=== PATIENT | female | born 1945 | race Caucasian/White ===

== ENCOUNTER → 2016-09-01 | Outpatient (CLI) | payer MEDICARE, OTHER ==
--- NOTE | 2016-09-01 12:31 | MR ---
MR brain without contrast HISTORY: Occipital neuralgia of right side, M 54.81 No comparisons Multiplanar multisequence imaging through the brain There is no restricted diffusion. Cortical atrophy is noted. There are normal vascular flow voids. Th e orbits show symmetric appearance. Scattered hyperintensities are present within the deep white albino er on inversion recovery and T2-weighted sequences, there are too numerous to count foci of hyperinte nsity with confluent areas of hyperintensity. No hemorrhage or hydrocephalus. There is some motion on the exam. Corpus callosum, pituitary, cervical medullary junction, cerebellopontine angles are sd l. IMPRESSION: Nonspecific white matter demyelination likely related to chronic small vessel ischemia. T here is age-related atrophy.
== END | disposition home or self-care (01) ==
LOC: RADMRIMAIN 09:06
PROVIDERS: ATTEND Psychiatry & Neurology Neurology
DX: G37.9 Demyelinating disease of central nervous system, unspecified (principal); G31.9 Degenerative disease of nervous system, unspecified
CPT/HCPCS: 70551

== ENCOUNTER → 2016-09-27 | Outpatient (CLI) | payer MEDICARE, OTHER ==
[2016-09-27 14:35] LABS: Anion Gap 11 mmol/L; Blood Urea Nitrogen 23 mg/dL (7-17); Calcium 9.4 mg/dL (8.4-10.2); Carbon Dioxide 25 mmol/L (22-30); Chloride 96 mmol/L (98-107); Glucose 118 mg/dL (74-99); Non-African American GFR(MDRD) 58 (>60 ml/min/1.73 sqM); Sodium 132 mmol/L (137-145)
== END | disposition home or self-care (01) ==
LOC: LABWHC1 13:31
PROVIDERS: ATTEND Urology
DX: N28.89 Other specified disorders of kidney and ureter (principal)
CPT/HCPCS: 36415; 80048

== ENCOUNTER → 2016-10-28 | Outpatient (CLI) | payer MEDICARE, OTHER ==
--- NOTE | 2016-10-28 15:01 | BD ---
EXAMINATION TYPE: MG DEXA axial skeleton. DATE OF EXAM: 10/28/2016 COMPARISON: NONE CLINICAL HISTORY: Postmenopausal female Height: 5 FT 2 IN Weight: 129 FRAX RISK QUESTIONS: Alcohol (3 or more units per day): NO Family History (Parent hip fracture): NO Glucocorticoids (More than 3mos): NO (Ex: prednisone, prednisolone, methylprednisolone, dexamethasone, and hydrocortisone). History of Fracture in Adulthood: NO Secondary Osteoporosis: 1. Type 1 Diabetes: NO 2. Hyperthyroidism: NO 3. Menopause before 45: YES 4. Malnutrition: NO 5. Chronic liver disease: NO Rheumatoid Arthritis: NO Current Tobacco Use: NO RISK FACTORS HISTORY OF: Family History of Osteoporosis: YES Active: YES Postmenopausal woman: TOTAL HSYT AGE 33 Take estrogen and/or progesterone medications: PATCH FOR SEVERAL YEARS MEDICATIONS: Additional Medications: HYZAAR, EFFEXOR ,IBS MEDS Additional History: LT KIDNEY CANCER 09/2016 NO CHEMO NO RADIATION EXAM MEASUREMENTS: Bone mineral densitometry was performed using the [employer] System. Bone mineral density as measured about the Lumbar spine is: ----- L1-L4(G/cm2): 0.975 T Score Values are as follows: ----- L2: -2.0 ----- L3: -1.4 ----- L4: -1.4 ----- L1-L4: -1.7 PREV LONG AGO Bone mineral density about the R hip (g/cm2): 0.655 Bone mineral density about the L hip (g/cm2): 0.690 T Score values are as follows: -----R Neck: -2.8 -----L Neck: -2.5 -----R Total: -2.0 -----L Total: -2.0 PREV LONG AGO IMPRESSION: Osteoporosis (T Score less than -2.5) as noted by T Score values at the femoral neck level in right h ip. There is increased fracture risk and therapy is usually indicated based on age. Re-Screen 1-2 ye ars. NOTE: T-SCORE=SD OF THE YOUNG ADULT MEAN.
== END | disposition home or self-care (01) ==
LOC: RADBDWWP 14:14
PROVIDERS: ATTEND Internal Medicine Rheumatology
DX: M81.0 Age-related osteoporosis without current pathological fracture (principal)
CPT/HCPCS: 77080

== ENCOUNTER → 2016-11-16 | Outpatient (CLI) | payer MEDICARE, OTHER ==
--- NOTE | 2016-11-16 16:56 | MR ---
EXAMINATION TYPE: MR cervical spine wo/w con DATE OF EXAM: 11/16/2016 COMPARISON: NONE HISTORY: Neck Pain with More Pain upon Movement for many years. Cancer of Kidney 2 months ago TECHNIQUE: Multiplanar, multisequence images of the cervical spine were acquired utilizing 12 mL intravenous Mul tiHance gadolinium contrast. Diffusion weighted imaging was performed. C2-C3: No evidence for degenerative disc disease. No disc bulge/herniation or protrusion. No Canal stenosis. Foramina are patent bilaterally. C3-C4: Mild central bulge is present. This is broad-based with mild anterior thecal sac compression. No AP spinal canal stenosis is present. No cord contact is evident. Neural foramen are patent. C4-C5: No evidence for degenerative disc disease. No disc bulge/herniation or protrusion. No Canal stenosis. Foramina are patent bilaterally. C5-C6: No evidence for degenerative disc disease. No disc bulge/herniation or protrusion. No Canal stenosis. Foramina are patent bilaterally. C6-C7: No evidence for degenerative disc disease. No disc bulge/herniation or protrusion. No Canal stenosis. Foramina are patent bilaterally. C7-T1: No evidence for degenerative disc disease. No disc bulge/herniation or protrusion. No Canal stenosis. Foramina are patent bilaterally. Cervical segments are intact. There is normal alignment. Cervical spinal cord is of normal signal. Craniovertebral junction relationships are within normal limits. Disc desiccation is present throug hout the cervical spine. No abnormal enhancement is evident. There is some mild disc space narrowing C3-4. No suspicious enhancement or mass is evident. IMPRESSION: Mild degenerative disc changes with disc desiccation. 2. Minimal disc bulge C3-4 with mild anterior thecal sac flattening. No stenosis is present.
== END | disposition home or self-care (01) ==
LOC: RADMRIMAIN 14:32
PROVIDERS: ATTEND Internal Medicine Rheumatology
DX: M50.21 Other cervical disc displacement, high cervical region (principal); M47.812 Spondylosis without myelopathy or radiculopathy, cervical region
CPT/HCPCS: 72156; A9577

== ENCOUNTER → 2017-09-19 | Outpatient (CLI) | payer MEDICARE, OTHER ==
[2017-09-19 17:23] LABS: Appearance,Urine Clear (Clear); Bilirubin,Urine Negative (Negative); Blood,Urine Negative (Negative); Color,Urine Yellow; Glucose,Urine (UA) Negative (Negative); Ketones,Urine Negative (Negative); Leukocyte Esterase,Urine Negative (Negative); Nitrite,Urine Negative (Negative); Protein,Urine Negative (Negative); Specific Gravity,Urine 1.015 (1.001-1.035); Urobilinogen,Urine <2.0 mg/dL (<2.0)
--- NOTE | 2017-09-19 17:33 | XR ---
EXAMINATION TYPE: XR chest 2V DATE OF EXAM: 09/19/2017 COMPARISON: NONE HISTORY: Preop spine surgery TECHNIQUE: Frontal and lateral views of the chest are obtained. FINDINGS: Heart and mediastinum are normal for age. Thoracic aorta is atheromatous. There is some bl unting of right costophrenic angle. Bony thorax appears intact. IMPRESSION: Pleural diaphragmatic scarring at the right lung base.
[2017-09-19 17:37] LABS: Basophils # (A) 0.1 k/uL (0-0.2); Basophils % (A) 1 %; Eosinophils # (A) 0.2 k/uL (0-0.7); Eosinophils % (A) 2 %; HCT 36.6 % (34.0-46.0); HGB 12.6 gm/dL (11.4-16.0); Lymphocytes # (A) 2.9 k/uL (1.0-4.8); Lymphocytes % (A) 29 %; MCH 31.3 pg (25.0-35.0); MCHC 34.5 g/dL (31.0-37.0); MCV 90.8 fL (80.0-100.0); Mean Platelet Volume 6.1; Monocytes # (A) 0.5 k/uL (0-1.0); Monocytes % (A) 5 %; Neutrophils # (A) 6.5 k/uL (1.3-7.7); Neutrophils % (A) 64 %; Platelet Count 296 k/uL (150-450); RBC 4.04 m/uL (3.80-5.40); RDW 14.4 % (11.5-15.5); WBC 10.2 k/uL (3.8-10.6)
[2017-09-19 17:43] LABS: INR 1.1 (<1.2); Prothrombin Time 10.7 sec (9.0-12.0)
[2017-09-19 17:48] LABS: Partial Thromboplastin Time 19.9 sec (22.0-30.0)
[2017-09-19 17:53] LABS: Calcium 9.7 mg/dL (8.4-10.2); Potassium 4.1 mmol/L (3.5-5.1)
== END | disposition home or self-care (01) ==
LOC: LABPAT 16:24
PROVIDERS: ATTEND Orthopaedic Surgery Orthopaedic Surgery of the Spine
DX: Z01.818 Encounter for other preprocedural examination (principal); J98.4 Other disorders of lung; M43.17 Spondylolisthesis, lumbosacral region; Z01.812 Encounter for preprocedural laboratory examination
CPT/HCPCS: 36415; 71046; 80048; 81003; 85025; 85610; 85730; 86850; 86900; 86901; 87070; 93005

== ENCOUNTER 2017-09-28 08:00 | Inpatient (IN) | payer MEDICARE, OTHER ==
[2017-09-23 16:08] VITALS: BMI 23.8
[~2017-09-28 08:00] MED LIST: BACITRACIN 50,000 UNIT, POLYMYXIN B 500,000 UNIT in SODIUM CHLORIDE 0.9% IRRIGATIO 1,00... IRRIGATION ONE; CLINDAMYCIN 150 MG/ML 4 ML VIAL ONE; LACTATED RINGERS 1,000 ML IV ONE; LIDOCAINE 1% INJ 10MG/ML (20 ML MDV) ONE; MIDAZOLAM 2 MG/2 ML VIAL ONE; ONDANSETRON 4 MG/2 ML VIAL ONE; PHENYLEPHRINE-0.9% NACL SYG 1 MG/10 ML SYRINGE ONE; PROPOFOL 10 MG/ML 20 ML VIAL IV ONE; SUCCINYLCHOLINE CHLORIDE 100 MG/5 ML SYR IV ONE; ePHEDrine SULFATE/0.9% NACL/PF 50 MG/5 ML SYRINGE IV ONE; fentaNYL (PF) 50 MCG/ML 2 ML AMP ONE; hydrALAZINE HCL 20 MG/ML 1 ML VIAL ONE
[2017-09-28] MEDS: CLINDAMYCIN 600 MG in DEXTROSE 5% IN WATER 50 ML IVPB SCH ×6 (08:35→17:03)
[2017-09-28] MEDS ORDERED: THROMBIN (BOVINE) 5,000 UNIT VIAL TOPICAL ONE (09:00)
[2017-09-28] MEDS ORDERED: BUPIVACAINE (PF) 0.5% 30 ML VIAL SQ ONE (09:00)
[2017-09-28] MEDS ORDERED: BACITRACIN 50,000 UNIT, POLYMYXIN B 500,000 UNIT in SODIUM CHLORIDE 0.9% IRRIGATIO 1,00... IRRIGATION ONE (09:00)
[2017-09-28] MEDS ORDERED: GELATIN SPONGE,ABSORB (SMALL) 1 EACH SPONGE TOPICAL ONE (09:00)
[2017-09-28] MEDS ORDERED: LACTATED RINGERS 1,000 ML IV ONE ×2 (10:35→11:01)
[2017-09-28] MEDS ORDERED: HYDROcodone/APAP 5-325MG 1 EACH TAB PO PRN (10:47)
[2017-09-28] MEDS ORDERED: ONDANSETRON 4 MG/2 ML VIAL IVP PRN (10:47)
[2017-09-28] MEDS ORDERED: MAGNESIUM HYDROXIDE 2,400 MG/10 ML CUP PO PRN (10:47)
[2017-09-28] MEDS ORDERED: BENZOCAINE/MENTHOL LOZENG 1 EACH LOZENGE MUCOUS MEM PRN (10:47)
[2017-09-28] MEDS ORDERED: traMADol 50 MG TAB PO PRN (10:52)
[2017-09-28] MEDS ORDERED: FLUTICASONE 50MCG/SPRAY NASAL 16GM EA NOSTRIL PRN (10:53)
[2017-09-28] MEDS ORDERED: [UNRECOGNIZED DRUG - MIXTURE] NASAL PRN (10:53)
--- NOTE | 2017-09-28 10:59 | P.OP ---
Date of Procedure: 09/28/17 Preoperative Diagnosis: Spondylolisthesis L4 5, spinal stenosis L4 5, low back pain, lower extremity radiculopathy, degenerative disc disease Postoperative Diagnosis: Same Anesthesia: GETA Pathology: none sent Condition: stable Disposition: PACU Description of Procedure: DESCRIPTION OF PROCEDURE(S): BRIEF OPERATIVE NOTE Preoperative Diagnosis: Spondylolisthesis L4 5, spinal stenosis L4 5, degenerative disc disease, low back pain with lower extremity radiculopathy Postoperative Diagnosis: Same Procedure: Laminectomy and decompression L4 5 Minimally invasive Posterior lateral decompression and facet fusion L4 5 Minimally invasive Transforaminal lumbar interbody fusion for a 360 fusion L4 5 Discectomy for decompression L4 5 Placement of interbody graft L4 5 Local autogenous bone grafting Harvesting of bone marrow aspirate via the pedicle and vertebral body of L4 Use of Cell Saver Use of bone graft extenders Surgeon: Dr. Ortiz Appeals Representative: Ron GENAO who is present throughout the entire the case persistence during positioning, dissection, exposure, visualization, and all crucial elements of the case as well as closure. Anesthesia: General anesthesia per Dr. Rodas Estimated blood loss: Approximately 200 mL Complications: None apparent Components implanted: K to have minimally invasive [place] pedicle screw system with 6.5 x 45 mm screws 2 rods and 1 [place] expandable 7-10 cage with 1 osteoamp sponge, 30 mL of DBX bone fibers to supplement the local autogenous and bone marrow aspirate graft Disposition: To recovery room in good stable condition. OPERATIVE INDICATIONS The patient has had long-standing issues in their lower back and lower extremities. She was found have a dynamic spondylolisthesis at L4 5 with spinal stenosis at that level. Her symptoms correlated well with her low back and lower extremity imaging. The patient has been through conservative treatment. She is not having any lasting benefit despite aggressive conservative treatment and she was having worsening of her symptoms. We discussed various treatment options including surgery, and the patient wishes to proceed with surgery We discussed the risk, patient's alternatives and benefits of surgery including but not limited to, risk of bleeding risk of infection, risk of need for further surgery, risk of decreased, loss of motion, muscle function, malunion nonunion, hardware failure, nerve damage, paralysis, heart attack, blindness and . OPERATIVE SUMMARY After discussing all the risks, patient alternatives and benefits at length, the patient elected to proceed with surgical intervention, signed informed consent, and presented for their procedure. The patient was seen and examined in the preoperative holding area and the surgical site was marked. The patient was given antibiotics and brought to the operating room. The patient was sedated and intubated by anesthesia in standard fashion. The patient was positioned on to the operating room table in a prone position on the appropriate frame which was well-padded and well molded. We were careful to pad any bony prominences and pressure points. We were careful to maintain the patient's cervical spine and good neutral alignment and position throughout. The patient was prepped and draped in a normal standard fashion. An appropriate timeout and keystone protocol performed. We were able to proceed with the surgery. The local wound area was infiltrated with local anesthetic. I was able utilize C-arm guidance to establish appropriate position over the pedicles bilaterally at the appropriate levels at L4 5. With the appropriate levels confirmed was able to make small stab incisions over the appropriate pedicle sites bilaterally. Utilizing C-arm in his house able to establish a Jamshidi needle over the lateral aspect of the pedicle and advanced the trocar into the pedicle being careful not to breech superiorly inferiorly medially or laterally. Position was confirmed regularly with AP and lateral images on C- arm. I was able to establish the trocar into the pedicle appropriately into the posterior aspect of the vertebral body bilaterally at the appropriate levels. This was done at each of the pedicle positions and each of the vertebrae. At L4 on the right and was able to withdraw approximately 20 mL of bone marrow aspirate to be used later for supplementing the bone graft. I was able place the guidewire into the trocar and into the vertebral body appropriately under C-arm guidance. Dissection was taken down over the wire to the appropriate starting position for the screw placed. The appropriate length screw was chosen, threaded over the guidewire and screwed appropriately into the pedicle and vertebral body under C-arm guidance in excellent alignment and position with good bony purchase. This is done at each of the screw sites at the appropriate levels at L4 and 5 bilaterally. With the screws intact I extended the incision to connect the screw hole sites on the most symptomatic side on the right of L4 5. I dissected down to establish access over the pars and lamina to the base of the spinous process. I was able to expose the facet joint. The capsule the facet was taken down and showed some facet arthrosis at the joint. I was able to use a combination of curettes and [place] rongeurs and a high-speed drill to take down the facet joint and do a facetectomy. Partial laminectomy was also performed. I was able get excellent foraminal decompression and central decompression with undermining across midline to perform a laminectomy centrally and contralaterally. As able get good central decompression. The ligamentum flavum was taken down to further decompress centrally and at bilateral neural foramen. I was able to expose the disc space and visualize the traversing nerve root. Note was made of some disc protrusion at the level causing further compression of the nerve root. I was able to establish a annulotomy at the appropriate level protecting soft tissue and neural structures. Note was made of some disc desiccation at the disc. I performed a complete discectomy with accommodation of curettes and rasps and scrapers. I was able get good endplate preparation at the disc space. I sized for the appropriate size interbody spacer protecting the soft tissue and neural structures. I chose to use an expandable [place] cage which expanded from 7-10 mm. The wound was copiously irrigated and suctioned dry. There is no evidence of any dural tear or leak. I was able to pack the disc space with local autogenous bone graft as well as a small amount of bone graft which was also placed into the interbody cage itself. Protecting the soft tissue structures and neural structures I was able place the interbody cage in good alignment and good position with good fit and fill at the interbody space. I was able to expanded appropriately and get good lordosis in good alignment and good position. His issues was confirmed with C- arm guidance. Good hemostasis maintained. There is no evidence of any dural tear or leak. The wound was irrigated and suctioned dry. With the hardware intact, intraoperative C-arm imaging was again taken which showed good alignment and position of the hardware at the appropriate levels at L4 5. We were then able to measure, contour and place the rods and appropriate hardware bilaterally. I was able to place capcrews, tighten them down, and torque them with the torque screwdriver appropriately. With this intact I was able to place the local autogenous bone graft with additional bone graft enhancer as necessary into the posterior lateral gutters over the decorticated transverse processes. The remainder of the bone graft was placed over the facet joint on the contralateral side after taking down the facet joint capsule. With the bone graft intact, a stable construct, and good decompression at the appropriate levels, we were able to proceed with closure. Good hemostasis was maintained. There is no evidence of dural tear or leak. The fascia was closed for a watertight closure. he subcuticular tissue was closed with absorbable suture. The wound was cleaned and dried and dressed with the appropriate dressing. The drapes were broken down. The patient was gently rolled back onto their hospital bed being careful to maintain their cervical spine and good neutral alignment and position. They were woken up by anesthesia, extubated, and brought to the recovery room in good stable condition. The patient will be admitted to the hospital for appropriate postoperative care , medical management and monitoring. We will continue to follow them closely about the postoperative course.
[2017-09-28] MEDS: HYDROmorphone 0.5 MG/0.5 ML SYRINGE IVP PRN ×3 (11:13→15:54)
[2017-09-28] MEDS: HYDROmorphone 1 MG/ML 1 ML SYRINGE IVP ONE ×2 (11:35→12:03)
--- NOTE | 2017-09-28 12:22 | FL ---
Fluoroscopy HISTORY: Lumbar fusion 1 minute 7 seconds fluoroscopy time supplied to the referring clinician. 2 intraoperative C-arm imag es document the procedure. See dictated report from orthopedic surgery
[2017-09-28] MEDS ORDERED: ONDANSETRON 4 MG/2 ML VIAL IVP ONE (12:34)
[2017-09-28] MEDS ORDERED: LACTATED RINGERS 1,000 ML IV SCH (12:34)
[2017-09-28] MEDS ORDERED: HYDROmorphone 0.5 MG/0.5 ML SYRINGE IVP PRN (12:34)
[2017-09-28] MEDS ORDERED: DEXAMETHASONE SOD PHOSPHATE 10 MG/ML 1 ML VIAL IV ONE (12:34)
[2017-09-28] MEDS ORDERED: hydrALAZINE HCL 20 MG/ML 1 ML VIAL IVP PRN (12:37)
--- NOTE | 2017-09-28 12:44 | XR ---
Limited lumbar spine HISTORY: Lumbar fusion 2 intraoperative C-arm images document the procedure.
[2017-09-28] MEDS ORDERED: ALPRAZolam 0.25 MG TAB PO PRN (14:25)
--- NOTE | 2017-09-28 15:05 | CONS ---
CONSULTATION I am covering for Dr. Escobar. REASON FOR CONSULTATION: Advice regarding asthma, hypertension, hyperlipidemia requested by Dr. Ortiz. HISTORY OF PRESENT ILLNESS: This 71-year-old woman with a past history of asthma, fibromyalgia, GERD, hypertension, hyperlipidemia, history of DJD being followed by Tomas Escobar in the outpatient setting underwent laminectomy decompression L4-5. The patient is closely monitored at this time. Patient complains of back pain. There is no history of fever, rigors. No history of chest pain. No palpitations, cough, hemoptysis at this time. PAST MEDICAL HISTORY: Asthma, fibromyalgia, GERD, hypertension, hyperlipidemia, history of chronic liver disease, history of appendectomy, history of depression. MEDICATIONS: Prior to admission include home medication: 1. Aleve 220 mg p.o. b.i.d. p.r.n. 2. Multivitamins 1 p.o. daily. 3. Nasal inhalation p.r.n. 4. Flonase 2 sprays daily p.r.n. 5. Prilosec 20 mg b.i.d. 6. Hyzaar 1 p.o. daily. 7. MegaRed 500 mg q.h.s. ALLERGIES: IODINE, SHELLFISH, CEPHALEXIN, CODEINE, PENICILLIN, ORANGE ROUGHY. FAMILY HISTORY: History of lung cancer in the family. SOCIAL HISTORY: Previous smoking history. History of occasional alcohol intake. REVIEW OF SYSTEMS: ENT: No diminished hearing or vision. CARDIOVASCULAR: No angina or palpitations. RESPIRATORY: As mentioned earlier. GI: No nausea. : No dysuria. NERVOUS SYSTEM: No numbness or weakness. ALLERGY/IMMUNOLOGY: Asthma. MUSCULOSKELETAL: As mentioned earlier. HEMATOLOGY: No history of anemia. ENDOCRINE: No history of diabetes or hypothyroidism. CONSTITUTIONAL: As mentioned earlier. DERMATOLOGY: Negative. RHEUMATOLOGY: Negative. PSYCHIATRY: As mentioned earlier. PHYSICAL EXAM: Patient is alert, oriented x3. Pulse is 94, blood pressure 160/79, respiration 18, temperature 97.2, pulse ox 98% on room air. HEENT: Conjunctivae normal. Oral mucosa moist. Neck is no jugular venous distention. No carotid bruit. No lymph node enlargement. CARDIOVASCULAR: S1, S2. No S3, no S4. RESPIRATORY: Breath sounds diminished in the bases. No rhonchi, no crackles. ABDOMEN: Soft, nontender. No mass palpable. BACK: Examination of the back status post surgery. NERVOUS SYSTEM: Higher functions as mentioned. Moves all four limbs. No focal deficits. LYMPHATIC: No lymphadenopathy in the neck, axillae, groin. SKIN: No ulcer, rashes or bleeding. JOINTS: No active deforming arthropathy. LABS: At this time shows the preop labs of hematology, CBC within normal limits. Coags are within normal limits. Preop Chemistry, sodium 136 and AST ALT was 14 and 58. LDL was 200. Urine was unremarkable. ASSESSMENT: 1. Status post laminectomy decompression L4-5 for severe spondylolisthesis and spinal stenosis. 2. Asthma. 3. Fibromyalgia. 4. Gastroesophageal reflux disease. 5. Hypertension. 6. Hyperlipidemia. 7. History of liver disease. 8. History of degenerative joint disease. 9. Sleep apnea. 10.History of depression. 11.Remote history of nicotine dependence. RECOMMENDATION AND DISCUSSION: In this 71-year-old woman who presented with multiple medical issues at this time, I recommend to continuing monitoring. Resume the home medications. DVT prophylaxis. Incentive spirometry. Monitor blood pressure closely, p.r.n. hydralazine. Otherwise, we will follow the patient closely with you. The patient may be asked to follow up with Dr. Escobar closely after discharge. Thank you Dr. Ortiz for letting us participate in the care of this patient. MMODL / IJN: [id number] /
[2017-09-28] MEDS: SODIUM CHLORIDE 0.9% 1,000 ML IV SCH (16:51)
[2017-09-28] MEDS: PANTOPRAZOLE 40 MG TABLET PO SCH (16:54)
[2017-09-28] MEDS: metroNIDAZOLE-NS PMX 500 MG in SALINE 1 100ML.BAG IVPB SCH ×2 (18:21→23:40)
[2017-09-28] MEDS: HYDROcodone/APAP 5-325MG 1 EACH TAB PO PRN ×2 (18:58→23:39)
[2017-09-28 21:20] VITALS: RESP 16
[2017-09-29] MEDS: SODIUM CHLORIDE 0.9% 1,000 ML IV SCH (03:20)
[2017-09-29] MEDS: HYDROcodone/APAP 5-325MG 1 EACH TAB PO PRN ×2 (04:33→09:07)
[2017-09-29 06:12] VITALS: BP 151/67; PULSE 108; TEMP 98.5
[2017-09-29 07:29] LABS: Basophils % (A) 0 %; Eosinophils # (A) 0.1 k/uL (0-0.7); Eosinophils % (A) 0 %; HCT 32.7 % (34.0-46.0); HGB 11.4 gm/dL (11.4-16.0); Lymphocytes # (A) 0.4 k/uL (1.0-4.8); Lymphocytes % (A) 3 %; MCH 31.1 pg (25.0-35.0); Mean Platelet Volume 6.5; Monocytes # (A) 0.6 k/uL (0-1.0); Monocytes % (A) 4 %; Neutrophils # (A) 14.3 k/uL (1.3-7.7); Neutrophils % (A) 92 %; Platelet Count 226 k/uL (150-450); RBC 3.67 m/uL (3.80-5.40); RDW 13.6 % (11.5-15.5); WBC 15.5 k/uL (3.8-10.6)
[2017-09-29 07:58] LABS: Potassium 3.7 mmol/L (3.5-5.1)
[2017-09-29] MEDS ORDERED: SENNOSIDES-DOCUSATE SODIUM 1 EACH TAB PO SCH (09:00)
[2017-09-29] MEDS ORDERED: LOSARTAN-HCTZ 50-12.5 MG 1 EACH TAB PO SCH (09:00)
[2017-09-29] MEDS: PANTOPRAZOLE 40 MG TABLET PO SCH (09:07)
--- NOTE | 2017-09-29 10:03 | P.DS ---
Providers Date of admission: 09/28/17 08:00 Attending physician: Dhaval Ortiz Consults: 09/28/17 11:17 Consult Physician Routine Consulting Provider: Tomas Escobar Consult Reason/Comments: medical mgmt, hypertensioin Do you want consulting provider notified?: Yes Primary care physician: Stated None Hospital Course: The patient presented on the day of admission as per his operative note. She had a spondylolisthesis L4 5 with severe spinal stenosis. She had been having chronic issues and chronic back pain with leg pain for this. She was treated conservatively but failed conservative management and underwent surgical procedure as per her operative note. She's been doing very well overnight and today has been mobile around the room. She is requesting to go home. She is tolerating a regular diet. Her pains [place] controlled with oral medications. Physical Exam The incision site is clean dry and intact. There is no erythema no drainage. There is no purulence no evidence of infection. There is no drainage on the dressing. There is no active bleeding. There is no significant fluid collection. Abdomen soft and nontender. Chest has good excursion with deep inspiration and expiration. The patient has active and passive range of motion intact at the upper and lower extremities. There is no acute change in neurologic status. She has sustained dorsal flexion plantar flexion and EHL intact. Her thighs and calves soft nontender. Hospital Course Postoperative day #1 status post minimally invasive decompression and fusion at L4 5 for her spondylolisthesis with spinal stenosis. The patient is making very good progress already on postoperative day 1. The patient has been making good progress postoperatively. They have completed the prophylactic antibiotics without any signs or symptoms of infection. The patient has been able to advance their diet, and is tolerating diet adequately. The pain was initially controlled with IV medications and is now controlled appropriately with oral medications. The patient has been able to increase their mobilization as she is ambulatory independently around her room. She is voiding freely without any problems The patient has progressed appropriately. She feels that she is comfortable to go home today and I think they are in good stable condition for discharge today. They will be sent home with appropriate prescriptions. We are starting her on [place] and she is given appropriate instructions in regard to this narcotic pain medicine. I answered their questions to the best of my ability in a language that they can understand and they are agreeable with the plan. They will follow up as directed in approximately 2 weeks or sooner she's having problems. Patient Condition at Discharge: Good Plan - Discharge Summary Discharge Rx Participant: Yes New Discharge Prescriptions: New HYDROcodone/APAP 5-325MG [[place] 5] 1 each PO Q4HR PRN #42 tab PRN Reason: Severe Pain No Action Multivitamins, Thera [Theragran] 1 tab PO DAILY Fluticasone Nasal [place] [Flonase Nasal [place]] 2 spr EA NOSTRIL DAILY PRN PRN Reason: NASAL, SINUS SX Omeprazole [PriLOSEC] 20 mg PO AC-BID Losartan-Hctz 50-12.5 mg [Hyzaar 50-12.5] 1 tab PO DAILY Mesal/Menth/Camph/[place]ir [Vicks Vapoinhaler] 1 inhalation NASAL DIRECTED PRN PRN Reason: ASTHMA SX Ko Red 500 mg PO HS Naproxen Sodium [Aleve] 220 mg PO BID PRN PRN Reason: Pain Discharge Medication List Multivitamins, Thera [Theragran] 1 tab PO DAILY 03/04/15 [History] Fluticasone Nasal [place] [Flonase Nasal [place]] 2 spr EA NOSTRIL DAILY PRN [History] Losartan-Hctz 50-12.5 mg [Hyzaar 50-12.5] 1 tab PO DAILY 09/23/17 [History] Ko Red 500 mg PO HS 09/23/17 [History] Mesal/Menth/Camph/[place] [Vicks Vapoinhaler] 1 inhalation NASAL DIRECTED PRN 09/23/17 [History] Naproxen Sodium [Aleve] 220 mg PO BID PRN 09/23/17 [History] Omeprazole [PriLOSEC] 20 mg PO AC-BID 09/23/17 [History] HYDROcodone/APAP 5-325MG [[place] 5] 1 each PO Q4HR PRN #42 tab 09/29/17 [Rx] Follow up Appointment(s)/Referral(s): Dhaval Ortiz DO [Doctor of Osteopathic Medicine] - 2 Weeks Activity/Diet/Wound Care/Special Instructions: Keep site clean. May shower with waterproof Tegaderm intact. Do not soak in a tub. On Tuesday May shower with area uncovered, but leave Steri-Strips intact and allow them to fray off on their own. Do not soak in a tub. Avoid heavy or rigorous activity. No repetitive bending twisting or lifting. May ambulate to tolerance Discharge Disposition: HOME SELF-CARE
--- NOTE | 2017-09-29 10:31 | P.PN ---
Subjective No overnight events patient is clinically doing well patient is mildly tachycardic secondary to the pain which is fairly well-controlled will recheck the heart rate again if patient is okay patient will be discharged today patient the has been hyponatremia because of which I'm and discontinue losartan and hydrochlorothiazide combination pill and switch her to losartan at a higher dose and patient will be discharged today. Objective - Vital Signs Vital signs: Vital Signs Temp 98.5 F 09/29/17 05:30 Pulse 108 H 09/29/17 08:25 Resp 16 09/29/17 08:25 BP 151/67 09/29/17 05:30 Pulse Ox 96 09/29/17 05:30 Intake & Output 09/28/17 09/29/17 09/29/17 18:59 06:59 18:59 Intake Total 1595 Output Total 1500 Balance 95 Weight 58.967 kg Intake: IV 1355 Oral 240 Output: Urine 1450 Estimated Blood Loss 50 Other: Voiding Method Toilet Toilet Toilet # Voids 5 1 - Exam PHYSICAL EXAMINATION: GENERAL: The patient is alert and oriented x3, not in any acute distress. Well developed, well nourished. HEENT: Pupils are round and equally reacting to light. EOMI. No scleral icterus. No conjunctival pallor. Normocephalic, atraumatic. No pharyngeal erythema. No thyromegaly. CARDIOVASCULAR: S1 and S2 present. No murmurs, rubs, or gallops. PULMONARY: Chest is clear to auscultation, no wheezing or crackles. ABDOMEN: Soft, nontender, nondistended, normoactive bowel sounds. No palpable organomegaly. MUSCULOSKELETAL: Deferred to primary service EXTREMITIES: No cyanosis, clubbing, or pedal edema. NEUROLOGICAL: Gross neurological examination did not reveal any focal deficits. SKIN: No rashes. - Labs CBC & Chem 7: 09/29/17 06:52 09/29/17 06:52 Labs: Abnormal Lab Results - Last 24 Hours (Table) 09/29/17 09/29/17 Range/Units 06:52 06:52 WBC 15.5 H (3.8-10.6) k/uL RBC 3.67 L (3.80-5.40) m/uL Hct 32.7 L (34.0-46.0) % Neutrophils # 14.3 H (1.3-7.7) k/uL Lymphocytes # 0.4 L (1.0-4.8) k/uL Sodium 132 L (137-145) mmol/L Chloride 90 L (98-107) mmol/L Glucose 107 H (74-99) mg/dL Assessment and Plan Plan: -Status post laminectomy decompression L4-L5 for severe spondylolisthesis and spinal stenosis. -Asthma without any acute exacerbation -Hypertension -Fibromyalgia -Gastroesophageal reflux disease -Hyperlipidemia -Depression Patient is okay to be discharged from medical perspective medication reconciliation was reviewed and appropriate changes were made to her discharge medications.
[2017-09-29] MEDS ORDERED: MULTIVITAMINS, THERA 1 EACH TAB PO SCH (12:00)
== END 2017-09-29 11:30 | disposition home or self-care (01) | DRG 454 ==
LOC: 2ORMAIN 08:00 → 5MS5E 10:56
PROVIDERS: ADMIT Orthopaedic Surgery Orthopaedic Surgery of the Spine; ATTEND Orthopaedic Surgery Orthopaedic Surgery of the Spine
PROC: 0SG0071 Fusion of Lumbar Vertebral Joint with Autologous Tissue Substitute, Posterior Approach, Posterior Column, Open Approach (ICD-10-PCS; 2017-09-28)
PROC: 0ST20ZZ Resection of Lumbar Vertebral Disc, Open Approach (ICD-10-PCS; 2017-09-28)
PROC: 07DS3ZZ Extraction of Vertebral Bone Marrow, Percutaneous Approach (ICD-10-PCS; 2017-09-28)
PROC: 4A11X4G Monitoring of Peripheral Nervous Electrical Activity, Intraoperative, External Approach (ICD-10-PCS; 2017-09-28)
PROC: 30233N0 Transfusion of Autologous Red Blood Cells into Peripheral Vein, Percutaneous Approach (ICD-10-PCS; 2017-09-28)
PROC: 0SG00AJ Fusion of Lumbar Vertebral Joint with Interbody Fusion Device, Posterior Approach, Anterior Column, Open Approach (ICD-10-PCS; principal; 2017-09-28 08:00)
DX: M43.16 Spondylolisthesis, lumbar region (principal); E87.1 Hypo-osmolality and hyponatremia; E78.5 Hyperlipidemia, unspecified; M48.062 Spinal stenosis, lumbar region with neurogenic claudication; M51.16 Intervertebral disc disorders with radiculopathy, lumbar region; G89.29 Other chronic pain; M47.26 Other spondylosis with radiculopathy, lumbar region; J45.909 Unspecified asthma, uncomplicated; I10 Essential (primary) hypertension; M79.7 Fibromyalgia; K76.9 Liver disease, unspecified; K21.9 Gastro-esophageal reflux disease without esophagitis; G47.30 Sleep apnea, unspecified; F32.9 Major depressive disorder, single episode, unspecified; Z79.51 Long term (current) use of inhaled steroids; Z79.899 Other long term (current) drug therapy; Z87.11 Personal history of peptic ulcer disease; Z87.448 Personal history of other diseases of urinary system; Z90.49 Acquired absence of other specified parts of digestive tract; Z90.710 Acquired absence of both cervix and uterus; Z87.891 Personal history of nicotine dependence; Z88.1 Allergy status to other antibiotic agents; Z88.5 Allergy status to narcotic agent; Z88.0 Allergy status to penicillin; Z91.013 Allergy to seafood; Z88.8 Allergy status to other drugs, medicaments and biological substances; Z82.49 Family history of ischemic heart disease and other diseases of the circulatory system
CPT/HCPCS: 72020; 80048; 85025

== ENCOUNTER → 2018-01-12 | Outpatient (CLI) | payer MEDICARE, OTHER ==
--- NOTE | 2018-01-16 08:52 | MM ---
Reason for exam: screening (asymptomatic). Last mammogram was performed 6 years and 6 months ago. History: Patient is postmenopausal and history of other cancer. Family history of breast cancer in 2 paternal cousins. Benign core biopsy of the right breast, June 03, 2010. Physical Findings: A clinical breast exam by your physician is recommended on an annual basis and results should be correlated with mammographic findings. MG 3D Screening Mammo W/Cad Bilateral CC and MLO view(s) were taken. Prior study comparison: July 20, 2011, mammogram, performed at [facility]. June 16, 2010, mammogram, performed at [facility]. June 12, 2010, mammogram, performed at [facility]. June 03, 2009, mammogram, performed at [facility]. The breast tissue is heterogeneously dense. This may lower the sensitivity of mammography. Previous mammotome biopsy in the right and left breast. No significant changes when compared with prior studies. ASSESSMENT: Benign, BI-RAD 2 RECOMMENDATION: Routine screening mammogram of both breasts in 1 year.
== END | disposition home or self-care (01) ==
LOC: RADMAMWWP 13:07
PROVIDERS: ATTEND Family Medicine
DX: Z12.31 Encounter for screening mammogram for malignant neoplasm of breast (principal)
CPT/HCPCS: 77063; 77067

== ENCOUNTER → 2019-01-10 | Outpatient (CLI) | payer MEDICARE, OTHER ==
[2019-01-10 19:50] LABS: African American GFR (CKD) 65.2 (60.0-200.0); Albumin 5.1 g/dL (3.80-4.90); Albumin/Globulin Ratio 2.83 (1.60-3.17); Anion Gap 13.7 mmol/L (4.00-12.00); Calcium 10.4 mg/dL (8.7-10.3); Carbon Dioxide 29.3 mmol/L (21.6-31.8); Chol/HDL Ratio 4.1; Globulin 1.8 g/dL (1.6-3.3); LDL Cholesterol,Calculated 87.4 mg/dL (0.0-131.0); Potassium 3.8 mmol/L (3.5-5.5); Total Bilirubin 0.5 mg/dL (0.3-1.2); Total Protein 6.9 g/dL (6.2-8.2); VLDL Calculation 70.6 mg/dL (5.00-40.00)
== END | disposition home or self-care (01) ==
LOC: LABWHC1 12:19
PROVIDERS: ATTEND Internal Medicine
DX: E78.2 Mixed hyperlipidemia (principal); E55.9 Vitamin D deficiency, unspecified; K58.9 Irritable bowel syndrome, unspecified; R94.5 Abnormal results of liver function studies
CPT/HCPCS: 36415; 80053; 80061; 82306

== ENCOUNTER → 2019-01-16 | Outpatient (CLI) | payer MEDICARE, OTHER ==
--- NOTE | 2019-01-16 16:00 | BD ---
EXAMINATION TYPE: Axial Bone Density DATE OF EXAM: 01/16/2019 COMPARISON: NONE CLINICAL HISTORY: N 95.1 Height: 62 Weight: 140.3 FRAX RISK QUESTIONS: Alcohol (3 or more units per day): no Family History (Parent hip fracture): no Glucocorticoids (More than 3mos): no (Ex: prednisone, prednisolone, methylprednisolone, dexamethasone, and hydrocortisone). History of Fracture in Adulthood: no Secondary Osteoporosis: 1. Type 1 Diabetes: no 2. Hyperthyroidism: no 3. Menopause before 45: yes 4. Malnutrition: no 5. Chronic liver disease: no Rheumatoid Arthritis: no Current Tobacco Use: no RISK FACTORS HISTORY OF: Surgery to Spine/Hip(right/left)/Wrist (right/left): lumbar When: Family History of Osteoporosis: no Active: sometimes Diet low in dairy products/other sources of calcium: yes Postmenopausal woman: age 33 Lost more than 2 inches in height since high school: no MEDICATIONS: cholesterol meds, anxiety meds, stomach pills Additional History: pt had kidney cancer in 2017 EXAM MEASUREMENTS: Bone mineral densitometry was performed using the [employer]. Bone mineral density about the R hip (g/cm2): 0.678 Bone mineral density about the L hip (g/cm2): 0.663 T Score values are as follows: -----R Neck: -2.6 -----L Neck: -2.7 -----R Total: -1.9 -----L Total: -2.0 Bone mineral density has: increased 1.1 % since study of: 7. Bone mineral density about the L Wrist (g/cm2): 0.477 T Score values are as follows: -----Dist. R+U: -3.4 -----Prox. R+U: -3.1 -----Radius total: -3.3 Bone mineral density : baseline IMPRESSION: Osteoporosis (T Score less than -2.5). There is increased fracture risk and therapy is usually indicated based on age. Re-Screen 1-2 years. NOTE: T-SCORE=SD OF THE YOUNG ADULT MEAN.
== END | disposition home or self-care (01) ==
LOC: RADBDWWP 13:13
PROVIDERS: ATTEND Internal Medicine
DX: M81.0 Age-related osteoporosis without current pathological fracture (principal)
CPT/HCPCS: 77080

== ENCOUNTER → 2019-11-12 | Outpatient (CLI) | payer MEDICARE, BC ==
--- NOTE | 2019-11-12 08:13 | US ---
EXAMINATION TYPE: US abdomen limited DATE OF EXAM: 11/12/2019 COMPARISON: CT end MRI 2016 CLINICAL HISTORY: R79.9 Abnormal labs. Abn liver labs EXAM MEASUREMENTS: Liver Length: 21.3 cm CBD: 0.7 cm Right Kidney: 10.5 x 4.1 x 4.0 cm Pancreas: wnl Liver: Enlarged, difficult to penetrate, heterogeneous Gallbladder: Surgically absent Evidence for sonographic Brown's sign: No CBD: wnl Right Kidney: Cortical thinning IMPRESSION: Redemonstration of diffuse fatty infiltration of liver. No ascites identified. No new int rahepatic mass or ductal dilatation on images saved.
== END | disposition home or self-care (01) ==
LOC: RADUSWWP 07:37
PROVIDERS: ATTEND Family Medicine
DX: K76.0 Fatty (change of) liver, not elsewhere classified (principal)
CPT/HCPCS: 76705

== ENCOUNTER → 2019-12-12 | Outpatient (CLI) | payer MEDICARE, BC ==
--- NOTE | 2019-12-12 15:53 | CT ---
EXAMINATION TYPE: CT lumbar spine wo con DATE OF EXAM: 12/12/2019 3:11 PM COMPARISON: MRI 03/05/2016 HISTORY: Low back/hip pain CT DLP: 461.50 mGycm Automated exposure control for dose reduction was used. Unenhanced CT of the lumbar spine was performed. Bone and soft tissue window settings are submitted as well as coronal and sagittal reconstructions. Alignment is anatomic. There is a fatty 7 mm posteri or mid cortical left renal lesion likely related to lipoma or angiomyolipoma. Smaller sub-5 mm hyperd ense lesion in the lower pole posterior cortex indeterminate. Suggestion of possible surgical clips i n the region of the gallbladder fossa surgical clips in the pelvis also incidentally noted. Atheroscl erotic change of the aorta with no evidence of aneurysm. L1-L2: Normal disc space height. No disc herniation protrusion or central stenosis. No facet joint arthropathy. No evidence for foraminal encroachment. L2-L3: Normal disc space height. No disc herniation protrusion or central stenosis. No facet joint arthropathy. No evidence for foraminal encroachment. L3-L4: There is artifact from the surgical changes at L4-L5 which obscures portions of the spinal. Vi sualized portions of the upper disc space level appear to demonstrate no canal stenosis or obvious di sc herniation. Mid to lower disc spaces are obscured by artifact. Visualized neural foramina appear t o be patent L4-L5: Artifact is again noted at the L4-L5 level which demonstrates extensive postsurgical changes. Alignment is grossly anatomic. Assessment of the spinal canal is severely limited due to artifact and nondiagnostic. Visualized portions of the canal appear to be patent. Visualized neural foramina appe ar to be patent L5-S1: Facet arthropathy and ligamentum flavum hypertrophy with no obvious disc herniation. Mild bila teral foraminal encroachment. Minimal central disc bulging. IMPRESSION: 1. Postsurgical change at L4-L5 which results in significant artifact partially obscuring the levels of L3-4 and L4-5. Grossly alignment is anatomic. 2. Hypertrophic facet changes L5-S1 with mild bilateral foraminal encroachment. Very minimal central disc bulging but no canal stenosis.. 3. Tiny 3 mm posterior mid cortical lesion does not meet the criteria of a simple cyst is somewhat hy perdense. 2 small to characterize. Hemorrhagic tiny cyst in the differential diagnosis. Additional fa tty lesion measuring 7 mm likely related to lipoma or angiomyolipoma
== END | disposition home or self-care (01) ==
LOC: RADCTMAIN 14:47
PROVIDERS: ATTEND Orthopaedic Surgery
DX: M47.896 Other spondylosis, lumbar region (principal); Z98.890 Other specified postprocedural states; Z88.5 Allergy status to narcotic agent; Z88.0 Allergy status to penicillin
CPT/HCPCS: 72131

== ENCOUNTER → 2019-12-25 | Outpatient (CLI) | payer MEDICARE, BC ==
--- NOTE | 2019-12-27 06:29 | MR ---
EXAMINATION TYPE: MR lumbar spine wo con DATE OF EXAM: 12/25/2019 COMPARISON: 05/24/2015 prior MRI. Lumbar spine CT December 12, 2019 HISTORY: Low back pain per order. Back pain for 2 weeks radiating into right buttocks and thigh per p atient. CONTRAST: 0 mL intravenous Gadavist. TECHNIQUE: Multiplanar, multisequence images of the lumbar spine were acquired. FINDINGS: Sagittal images of the lumbar spine show vertebral body heights and alignment to remain sat isfactory. There is artifact from metallic disc material and posterior fusion hardware L4-L5 level id entified. Multilevel disc desiccation seen above and below this level. Disc space heights maintained above and below surgical level. The conus medullaris remains near stable in position ending mid T12 l evel without abnormal signal. The bone marrow signal intensity is within normal limits. Mild multile danilo anterior spurring redemonstrated. Axial images show the T12-L1 level to remain within normal limits. Axial images at L1-L2 level redemonstrated mild broad disc bulge minimally effaces the anterior theca l sac. No significant interval change. Axial images at L2-L3 level show mild broad disc bulge mildly effacing the anterior thecal sac. No si gnificant interval change. Axial images at the L3-L4 level show mild to moderate facet degenerative changes and ligamentum flavu m hypertrophy effacing posterior lateral thecal sac more prominent from 2016 MRI. There is mild broad disc bulge minimally effacing the anterior thecal sac. Patent bilateral neural foramina. Axial images at L4-L5 levels artifact from posterior fusion hardware and metallic disc material. Merced llic disc material slightly more posterior in location than desired as seen better on CT. Spinal can al is preserved. Bilateral neural foramina remain patent. Right-sided laminectomy defect noted. Axial images at the L5-S1 level show moderate facet arthropathy bilaterally. There is central disc pr otrusion without spinal canal is preserved. Bilateral neural foramina are patent. IMPRESSION: Interval surgery L4-L5 level with stable and satisfactory alignment. Increasing facet art hropathy L3-L4 and L5-S1 levels noted otherwise no significant interval progression from 2016 MRI
== END | disposition home or self-care (01) ==
LOC: RADMRIMAIN 10:58
PROVIDERS: ATTEND Orthopaedic Surgery
DX: M47.896 Other spondylosis, lumbar region (principal)
CPT/HCPCS: 72148

== ENCOUNTER → 2020-08-13 | Outpatient (CLI) | payer MEDICARE, BC ==
--- NOTE | 2020-08-13 13:47 | XR ---
EXAMINATION TYPE: XR chest 2V DATE OF EXAM: 08/13/2020 COMPARISON: 09/19/2017 TECHNIQUE: PA and lateral views submitted. HISTORY: Shortness of breath FINDINGS: There is right lower lobe consolidation and pleural effusion stable. Biapical pleural thickening. Ath erosclerotic change aorta. Heart size normal. No overt failure. Hyperinflation seen. Degenerative hi nge of the spine. Surgical clips in the abdomen. Postsurgical change involving the left shoulder. IMPRESSION: 1. Right lower lobe infiltrate and small pleural effusion.
== END | disposition home or self-care (01) ==
LOC: RADXRMAIN 13:06
PROVIDERS: ATTEND Family Medicine
DX: J90 Pleural effusion, not elsewhere classified (principal); R91.8 Other nonspecific abnormal finding of lung field
CPT/HCPCS: 71046

== ENCOUNTER → 2021-09-04 | Outpatient (CLI) | payer MEDICARE, BC | END | disposition home or self-care (01) | LOC: RADCTMAIN 13:49 | PROVIDERS: ATTEND Family Medicine | DX: Z53.9 Procedure and treatment not carried out, unspecified reason (principal) ==

== ENCOUNTER → 2021-09-17 | Outpatient (CLI) | payer MEDICARE, BC ==
--- NOTE | 2021-09-18 12:59 | CT ---
EXAMINATION TYPE: CT abdomen pelvis wo con, CT lumbar spine wo con DATE OF EXAM: 09/17/2021 HISTORY: right flank pian and numbness down right leg CT DLP: 772.2 mGycm. Automated Exposure Control for Dose Reduction was Utilized. TECHNIQUE: CT scan of the abdomen and pelvis is performed without oral or IV contrast. CT lumbar spi ne without contrast. COMPARISON: CT abdomen and pelvis January 26, 2016. MRI lumbar spine December 25, 2019. CT lumbar sp ine December 12, 2019 FINDINGS: Within the limitations of a non-contrast study, the following observations are made. LUNG BASES: No significant abnormality is appreciated. LIVER/GB: Cholecystectomy clips are redemonstrated. PANCREAS: No significant abnormality is seen. SPLEEN: No significant abnormality is seen. ADRENALS: No significant abnormality is seen. KIDNEYS: Curvilinear density along the lateral aspect left kidney likely related to prior treatment t o prior visualized mass. No renal calculi or hydronephrosis seen bilaterally. BOWEL: No suspicious small or large bowel dilatation. GENITAL ORGANS: Uterus is surgically absent. A few small scattered pelvic phlebolith bilaterally are redemonstrated. Surgical sutures and/or clips in the right pelvis redemonstrated. LYMPH NODES: No greater than 1cm abdominal or pelvic lymph nodes are appreciated. OSSEOUS STRUCTURES: Mild to moderate axial joint space loss both hips. OTHER: No significant additional abnormality is seen. Lumbar spine: There are 5 lumbar type vertebra are redemonstrated. Persistent posterior interpedicular rods and scr ews and metallic disc material at L4-L5 level redemonstrated. Position stable and satisfactory. New m ild height loss involving the L1 vertebra anterior superior aspect with possible lucent and sclerotic component axial image 29 for reference, subacute fracture needs to be considered extending anteriorl y. No posterior retropulsion. Spinal canal grossly preserved. No large disc herniation is present. So me facet arthropathy lower lumbar spine redemonstrated on axial images is stable. IMPRESSION: 1. Mild subacute compression type fracture involving the anterior superior L1 vertebra is felt presen t. 2. No additional acute finding identified to account for patient's symptoms aren't
== END | disposition home or self-care (01) ==
LOC: RADCTMAIN 16:31
PROVIDERS: ATTEND Family Medicine
DX: S32.010A Wedge compression fracture of first lumbar vertebra, initial encounter for closed fracture (principal)
CPT/HCPCS: 72131; 74176

== ENCOUNTER 2022-02-27 11:12 | Emergency (ER) | payer MEDICARE, BC ==
[2022-02-27 11:44] VITALS: TEMP 98.2
[2022-02-27] MEDS ORDERED: MORPHINE SULFATE 2 MG/ML SYRINGE IM STA (12:10)
--- NOTE | 2022-02-27 12:14 | ED ---
Extremity Problem HPI - General Chief complaint: Extremity Problem,Nontraumatic Stated complaint: rt leg pain Time Seen by Provider: 02/27/22 11:50 Source: patient, RN notes reviewed Mode of arrival: wheelchair Limitations: no limitations - History of Present Illness Initial comments: This is a 76-year-old female who presents to the emergency department for right leg pain and swelling. States that the symptoms have been present and worsening over the last 2-3 weeks. Swelling is largely around the right knee, however she has pain in the entire leg. States that she is now having difficulty walking due to her symptoms. Denies any history of similar symptoms in the past, blood clots, chest pain, or shortness of breath. She is not on any blood thinners. She is using icy hot patches for her pain, which she states are not very effective. Denies any fevers, chills, sore throat, cough, dyspnea, chest pain, palpitations, abdominal pain, nausea, vomiting, diarrhea, back pain, or headaches. MD Complaint: extremity pain, extremity swelling Onset/Timin -: week(s) Location: right, lower extremity History of Same: No Radiation: proximal, distal Worsens with: weight bearing, walking - Related Data Home Medications Medication Instructions Recorded Confirmed Multivitamins, Thera [Theragran] 1 tab PO DAILY 03/04/15 09/28/17 Fluticasone Nasal [place]ert [Flonase 2 spr EA NOSTRIL DAILY PRN 09/23/17 09/28/17 Nasal [place]ert] Ko Red 500 mg PO HS 09/23/17 09/28/17 Mesal/Menth/Camph/[place] Fir 1 inhalation NASAL DIRECTED PRN 09/23/17 09/28/17 [Vicks Vapoinhaler] Naproxen Sodium [Aleve] 220 mg PO BID PRN 09/23/17 09/28/17 Omeprazole [PriLOSEC] 20 mg PO AC-BID 09/23/17 09/28/17 Previous Rx's Medication Instructions Recorded HYDROcodone/APAP 5-325MG [[place] 5] 1 each PO Q4HR PRN #42 tab 09/29/17 Losartan [Cozaar] 100 mg PO DAILY #30 tab 09/29/17 HYDROcodone/APAP 5-325MG [[place] 1 tab PO Q6HR PRN 3 Days #12 tab 02/27/22 5-325] predniSONE 50 mg PO DAILY 5 Days #5 tablet 02/27/22 Allergies Allergy/AdvReac Type Severity Reaction Status Date / Time iodine Allergy Severe Anaphylaxis Verified 02/27/22 11:44 shellfish derived [Shellfish] Allergy Severe Anaphylaxis Verified 02/27/22 11:44 cephalexin monohydrate Allergy Unknown Rash/Hives, Verified 02/27/22 11:44 [From Keflex] Asthma Symptoms codeine Allergy Unknown Rash/Hives, Verified 02/27/22 11:44 Asthma Symptoms Penicillins Allergy Unknown Rash/Hives, Verified 02/27/22 11:44 Asthma symptoms orange roughy Allergy Severe Anaphylaxis Uncoded 02/27/22 11:44 Review of Systems ROS Statement: Those systems with pertinent positive or pertinent negative responses have been documented in the HPI. ROS Other: All systems not noted in ROS Statement are negative. Past Medical History Past Medical History: Asthma, Cancer, Fibromyalgia, GERD/Reflux, Hyperlipidemia, Hypertension, Liver Disease, Musculoskeletal Disorder, Osteoarthritis (OA), Sleep Apnea/CPAP/BIPAP Additional Past Medical History / Comment(s): HX OF SKIN CANCER; KIDNEY CA 2015. BACK PAIN, PINCHED NERVE BACK & NECK, DDD; OCC NT RT LEG. SL EDEMA RT LEG. IBS. FATTY LIVER. SLEEP APNEA MILD ONLY. History of Any Multi-Drug Resistant Organisms: None Reported Past Surgical History: Appendectomy, Bladder Surgery, Cholecystectomy, Hysterectomy Additional Past Surgical History / Comment(s): PARTIAL HYST , LEFT OVARY & TUBE, RIGHT OVARY & TUBE, BLADDER SUSPENSION X4, BONE FROM LEFT HIP AREA USED TO REBUILD UPPER JAW. RESECTION LT KIDNEY D/T CA 09/2016. Past Anesthesia/Blood Transfusion Reactions: No Reported Reaction Past Psychological History: Depression Smoking Status: Former smoker Past Alcohol Use History: Rare Past Drug Use History: Marijuana - Past Family History Father Family Medical History: Cancer Additional Family Medical History / Comment(s): LUNG CANCER General Exam Limitations: no limitations General appearance: alert, in no apparent distress Head exam: Present: atraumatic, normocephalic, normal inspection Respiratory exam: Present: normal lung sounds bilaterally. Absent: respiratory distress, wheezes, rales, rhonchi, stridor Cardiovascular Exam: Present: regular rate, normal rhythm, normal heart sounds. Absent: systolic murmur, diastolic murmur, rubs, gallop, clicks Extremities exam: Present: other (Tenderness and swelling to the lateral aspect of the right patella. She does have full range of motion, however it does induce pain. There is no erythema or increased heat.) Neurological exam: Present: alert, oriented X3, CN II-XII intact Psychiatric exam: Present: normal affect, normal mood Skin exam: Present: warm, dry, intact, normal color. Absent: rash Course Vital Signs 02/27/22 02/27/22 02/27/22 11:42 12:45 14:07 Temperature 98.2 F Pulse Rate 88 82 69 Respiratory 16 20 16 Rate Blood Pressure 165/75 175/113 145/90 O2 Sat by Pulse 98 97 99 Oximetry Medical Decision Making - Medical Decision Making This is a 76-year-old female who presents to the emergency department for right leg pain and swelling. X-ray of the right knee obtained, and on my interpretation I identify no signs of fractures or dislocations. Duplex ultrasound was obtained as well, and this identified a Daly's cyst and no evidence of a DVT. Findings reviewed with the patient. Prescription for 5 day course of prednisone and [place] provided. She is instructed to take the [place] very sparingly when her pain is the most severe, and I reminded her that this is sedating and she should avoid driving or operating machinery when taking this. Instructed her to continue using the knee brace or wrapping the leg for compression and applying warm compresses. She is established with Dr. Ortiz's office, and I instructed her to follow-up with them for further management. Return precautions reviewed in depth, the patient is instructed to return to the emergency department with any new, worsening, or concerning symptoms. Patient verbalized understanding. This case was discussed in detail with the attending ED physician. Presentation, findings, and treatment plan discussed in detail as well. - Radiology Data Radiology results: report reviewed, image reviewed Disposition Clinical Impression: Synovial cyst of popliteal space [Daly], right knee Disposition: HOME SELF-CARE Instructions (If sedation given, give patient instructions): Daly Cyst (ED) Additional Instructions: Return to the emergency department with any new, worsening, or concerning sympto ms. Take the prednisone daily for 5 days. Afterwards alternate with ibuprofen and Tylenol. Take the [place] sparingly when your pain is the most severe. Continue to wear the knee brace or keep the leg wrapped to keep compression on the cyst. You can also try applying heat and keeping the leg elevated. Contact Dr. Ortiz's office as listed below for a follow-up appointment. Follow up with your primary care provider in 1-2 days. Prescriptions: HYDROcodone/APAP 5-325MG [[place] 5-325] 1 tab PO Q6HR PRN 3 Days #12 tab PRN Reason: Pain predniSONE 50 mg PO DAILY 5 Days #5 tablet Is patient prescribed a controlled substance at d/c from ED?: Yes When asked, does pt state using other controlled substances?: No If prescribed controlled substance>3 days was MAPS reviewed?: Prescribed <3 Days Referrals: Tomas Escobar DO [Primary Care Provider] - 1-2 days Dhaval Ortiz DO [Doctor of Osteopathic Medicine] - 1-2 days
--- NOTE | 2022-02-27 12:49 | XR ---
Right knee. HISTORY: Pain and swelling. COMPARISON: None. TECHNIQUE: Obtained. There is no fracture or focal intraosseous abnormality. There is mild narrowing of the lateral compar tment of the knee consistent with mild osteophytic change. There is no definite evidence of joint eff usion. Soft tissues are unremarkable. IMPRESSION: 1. No evidence of acute trauma. 2. Mild osteoarthritic change of the lateral compartment of the knee.
--- NOTE | 2022-02-27 13:29 | US ---
EXAMINATION TYPE: US venous doppler duplex LE RT DATE OF EXAM: 02/27/2022 1:22 PM COMPARISON: NONE CLINICAL HISTORY: Pain and swelling to right leg. Pt states right knee pain SIDE PERFORMED: Right TECHNIQUE: The lower extremity deep venous system is examined utilizing real time linear array sonog arely with graded compression, doppler sonography and color-flow sonography. VESSELS IMAGED: Common Femoral Vein Deep Femoral Vein Greater Saphenous Vein * Femoral Vein Popliteal Vein Small Saphenous Vein * Proximal Calf Veins (* superficial vessels) Right Leg: Negative for DVT, small superficial fluid collection right pop fossa= 2.8 x 0.5 x 2.2 cm The deep venous system of the right lower extremity from the common femoral vein to the proximal calf veins is patent and compressible with augmentable flow and there is no evidence of DVT. There is a complex 2.8 x 0.5 x 2.2 cm fluid collection in the popliteal fossa consistent with a Daly 's cyst. IMPRESSION: 1. No evidence of right lower extremity DVT. 2. Daly's cyst as described above.
[2022-02-27 14:08] VITALS: BP 145/90; PULSE 69; RESP 16
== END 2022-02-27 14:08 | disposition home or self-care (01) ==
LOC: EC 11:12
DX: M71.21 Synovial cyst of popliteal space [Baker], right knee (principal); J45.909 Unspecified asthma, uncomplicated; K21.9 Gastro-esophageal reflux disease without esophagitis; I10 Essential (primary) hypertension; M19.90 Unspecified osteoarthritis, unspecified site; F32.A Depression, unspecified; E78.5 Hyperlipidemia, unspecified; Z87.891 Personal history of nicotine dependence; Z79.1 Long term (current) use of non-steroidal anti-inflammatories (NSAID); Z91.041 Radiographic dye allergy status; Z91.013 Allergy to seafood; Z88.5 Allergy status to narcotic agent; Z88.0 Allergy status to penicillin; Z79.899 Other long term (current) drug therapy
CPT/HCPCS: 99283; 96372; 73562; 93971; J2270; 99284

== ENCOUNTER → 2022-06-24 | Outpatient (CLI) | payer MEDICARE, BC ==
--- NOTE | 2022-06-24 14:44 | XR ---
EXAMINATION TYPE: XR chest 2V DATE OF EXAM: 06/24/2022 COMPARISON: 08/13/2020, 06/03/2022 HISTORY: Cough and congestion TECHNIQUE: Frontal and lateral views of the chest are obtained. FINDINGS: The heart is not enlarged and there is no pulmonary vascular congestion. There are bandlik e and patchy opacities in the right upper lobe, new from prior examination. Stable elevated right hem idiaphragm. No pneumothorax. Aortic calcification. Postoperative changes left shoulder. Surgical clip s in the right upper quadrant. IMPRESSION: New bandlike and patchy opacities in the right upper lobe. Pneumonia is possible in the appropriate c linical setting. Follow-up radiograph should be performed to ensure resolution.
== END | disposition home or self-care (01) ==
LOC: RADXRMAIN 13:18
PROVIDERS: ATTEND Family Medicine
DX: J18.9 Pneumonia, unspecified organism (principal); J44.9 Chronic obstructive pulmonary disease, unspecified; R91.8 Other nonspecific abnormal finding of lung field
CPT/HCPCS: 71046

== ENCOUNTER → 2022-07-20 | Outpatient (CLI) | payer MEDICARE, BC ==
--- NOTE | 2022-07-20 22:42 | CT ---
EXAMINATION TYPE: CT chest wo con DATE OF EXAM: 07/20/2022 COMPARISON: None HISTORY: Pneumonia. CT DLP: 162.4 mGycm, Automated exposure control for dose reduction was used. CONTRAST: Performed injected with 0 mL of Isovue 300. TECHNIQUE: Axial images were obtained at 5 mm thick sections. Reconstructed images are reviewed on [employer] computer in the coronal plane. FINDINGS: Portion of the thyroid visualized is normal. There is some thickening against the posterior medial right apex pleural margin measuring 0.9 cm pleu ral margin with a depth of 1.4 cm. Series 4 image 11. There is some prominent vascularity extending t owards this region. A tiny 0.2 cm densities in the posterior right lung base. No enlarged mediastinal or hilar adenopathy is evident. The ascending aorta diameter at the level o f the main pulmonary artery is 3.6 cm. The main pulmonary artery diameter at the bifurcation is 2.9 cm. There is a small pericardial effusion. Limited CT sections are obtained through the upper abdomen. Gallbladder appears to be absent. Loop of colon containing fecal debris is in the gallbladder bed fossa. Some cortical calcification may be on the left mid kidney IMPRESSIONS: 1. 0.9 x 1.4 cm mass posterior medial left right apex has prominent pulmonary vascular markings exten ding to this region. Additional workup for neoplasm is recommended.
== END | disposition home or self-care (01) ==
LOC: RADCTMAIN 13:46
PROVIDERS: ATTEND Family Medicine
DX: J18.9 Pneumonia, unspecified organism (principal); R91.8 Other nonspecific abnormal finding of lung field
CPT/HCPCS: 71250

== ENCOUNTER → 2022-08-20 | Outpatient (CLI) | payer MEDICARE, BC ==
--- NOTE | 2022-08-20 12:34 | PE ---
EXAMINATION TYPE: PET CT fusion skull to thigh DATE OF EXAM: 08/20/2022 COMPARISON: Chest CT July 20, 2022 and older CTs HISTORY: Solitary pulmonary nodule, abnormal CT TECHNIQUE: Following the intravenous administration of 12.6 mCi of F-18 FDG, whole body images are p erformed from the skull base to the midthigh. Images are reviewed on the computer in the coronal, ax ial, and sagittal planes. Reconstructed rotating images are created on independent workstation and r eviewed on the computer. A localization and attenuation correction CT is performed in conjunction w ith the PET scan. Blood glucose level equals 110. SCAN: Initial Scan FINDINGS: SKULL BASE AND NECK: No areas of abnormal hypermetabolic uptake. CHEST, MEDIASTINUM, AND HILAR REGION: Persistent increased tubular shaped soft tissue in the right up per lobe. Persistent focal 9 mm nodule or nodular scar medial right upper lung axial image 54. No abn ormal hypermetabolic uptake at either level. No suspicious abnormal hypermetabolic uptake in the thor ax. Mild uptake bilateral shoulders and left sternoclavicular joint could reflect inflammatory change . ABDOMEN AND PELVIS: Normal excretion is seen. No areas of abnormal hypermetabolic uptake. No hypermet abolic adrenal masses. OSSEOUS STRUCTURES: No areas of abnormal hypermetabolic uptake. OTHER CT: Metallic anchors left humeral head from prior rotator cuff surgery are seen. There is small to tiny pericardial effusion. There is mild cardiomegaly. Cholecystectomy clips are seen. There is surgical change to the lower lumbar spine noted. Uterus is s urgically absent or markedly atrophic. IMPRESSION: No abnormal hypermetabolic uptake to suggest malignancy. Endobronchial mucous plugging in the right upper lobe is suspected.
== END | disposition home or self-care (01) ==
LOC: RADPETMAIN 09:01
PROVIDERS: ATTEND Internal Medicine Critical Care Medicine
DX: J98.09 Other diseases of bronchus, not elsewhere classified (principal); R91.8 Other nonspecific abnormal finding of lung field
CPT/HCPCS: 78815; A9552

== ENCOUNTER → 2023-11-28 | Outpatient (CLI) | payer MEDICARE, BC ==
[2023-11-28 20:29] LABS: C Reactive Protein <0.30 mg/dL (0.00-0.80); T4, Free (Free Thyroxine) 1.12 ng/dL (0.80-1.80)
[2023-11-28 22:23] LABS: Gliadin AB IgA, Deaminated Negative (Negative); Gliadin AB IgA, Unit <0.5 U/mL; Gliadin AB IgG, Deaminated Negative (Negative); Gliadin AB IgG, Unit <0.4 U/mL
== END | disposition home or self-care (01) ==
LOC: LABWHC1 12:49
DX: R19.8 Other specified symptoms and signs involving the digestive system and abdomen (principal)
CPT/HCPCS: 36415; 83516; 84439; 84443; 85652; 86140

== ENCOUNTER → 2023-11-29 | Outpatient (CLI) | payer MEDICARE, BC | END | disposition home or self-care (01) | LOC: LABWHC1 14:38 | PROVIDERS: ATTEND Family Medicine | DX: R19.8 Other specified symptoms and signs involving the digestive system and abdomen (principal) | CPT/HCPCS: 83993; 87338 ==

== ENCOUNTER 2024-01-23 14:16 | Inpatient (IN) | payer MEDICARE, BC ==
--- NOTE | 2024-01-23 14:42 | ED ---
General Adult HPI - General Chief complaint: Neuro Symptoms/Deficit Stated complaint: Poss Stroke Time Seen by Provider: 01/23/24 14:33 Source: patient Mode of arrival: ambulatory Limitations: no limitations - History of Present Illness Initial comments: Dictation was produced using [employer] dictation software. please excuse any grammatical, word or spelling errors. Chief Complaint: 78-year-old female presents with strokelike symptoms History of Present Illness: Patient 78-year-old female she is accompanied by . She started having strokelike symptoms since yesterday. Apparently she was having some slurred speech along with left facial droop. states that her symptoms were apparent yesterday however it improved last night. This morning she woke up with some. She is not sure that her slurred speech was because she was trying to talk without her dentures on. Patient denies any numbness tingling weakness paresthesias to the extremities. reports that she has been mentating appropriately. The ROS documented in this emergency department record has been reviewed and confirmed by me. Those systems with pertinent positive or negative responses have been documented in the HPI. All other systems are other negative and/or noncontributory. - Related Data Home Medications Medication Instructions Recorded Confirmed Omeprazole [PriLOSEC] 40 mg PO DAILY 09/23/17 01/23/24 Escitalopram [Lexapro] 20 mg PO DAILY 01/23/24 01/23/24 Linaclotide [Linzess] 145 mcg PO DAILY 01/23/24 01/23/24 Losartan [Cozaar] 50 mg PO DAILY 01/23/24 01/23/24 Rosuvastatin [Crestor] 10 mg PO HS 01/23/24 01/23/24 hydroCHLOROthiazide [Hydrodiuril] 12.5 mg PO DAILY 01/23/24 01/23/24 Allergies Allergy/AdvReac Type Severity Reaction Status Date / Time iodine Allergy Severe Anaphylaxis Verified 01/23/24 15:17 shellfish derived [Shellfish] Allergy Severe Anaphylaxis Verified 01/23/24 15:17 cephalexin monohydrate Allergy Unknown Rash/Hives, Verified 01/23/24 15:17 [From Keflex] Asthma Symptoms codeine Allergy Unknown Rash/Hives, Verified 01/23/24 15:17 Asthma Symptoms Penicillins Allergy Unknown Rash/Hives, Verified 01/23/24 15:17 Asthma symptoms orange roughy Allergy Severe Anaphylaxis Uncoded 01/23/24 15:17 Review of Systems ROS Statement: Those systems with pertinent positive or pertinent negative responses have been documented in the HPI. ROS Other: All systems not noted in ROS Statement are negative. Past Medical History Past Medical History: Asthma, Cancer, Fibromyalgia, GERD/Reflux, Hyperlipidemia, Hypertension, Liver Disease, Musculoskeletal Disorder, Osteoarthritis (OA), Sleep Apnea/CPAP/BIPAP Additional Past Medical History / Comment(s): HX OF SKIN CANCER; KIDNEY CA 2016. BACK PAIN, PINCHED NERVE BACK & NECK, DDD; OCC NT RT LEG. SL EDEMA RT LEG. IBS. FATTY LIVER. SLEEP APNEA MILD ONLY. History of Any Multi-Drug Resistant Organisms: None Reported Past Surgical History: Appendectomy, Bladder Surgery, Cholecystectomy, Hysterectomy Additional Past Surgical History / Comment(s): PARTIAL HYST , LEFT OVARY & TUBE, RIGHT OVARY & TUBE, BLADDER SUSPENSION X4, BONE FROM LEFT HIP AREA USED TO REBUILD UPPER JAW. RESECTION LT KIDNEY D/T CA 09/2016. Past Anesthesia/Blood Transfusion Reactions: No Reported Reaction Past Psychological History: Depression Smoking Status: Former smoker Past Alcohol Use History: Rare Past Drug Use History: Marijuana - Past Family History Father Family Medical History: Cancer Additional Family Medical History / Comment(s): LUNG CANCER General Exam - General Exam Comments Initial Comments: PHYSICAL EXAM: General Impression: Alert and oriented x3, not in acute distress HEENT: Normocephalic atraumatic, extra-ocular movements intact, pupils equal and reactive to light bilaterally, mucous membranes moist. Cardiovascular: Heart regular rate and rhythm Chest: Able to complete full sentences, no retractions, no tachypnea Abdomen: abdomen soft, non-tender, non-distended, no organomegaly Musculoskeletal: Pulses present and equal in all extremities, no peripheral edema Motor: no focal deficits noted Neurological: no focal motor or sensory deficits noted, NIH is 1 for slight flattening of the left nasolabial fold Skin: Intact with no visualized rashes Psych: Normal affect and mood Limitations: no limitations Course Vital Signs 01/23/24 14:19 Temperature 98.1 F Pulse Rate 83 Respiratory 16 Rate Blood Pressure 158/87 O2 Sat by Pulse 96 Oximetry EKG Findings - EKG Comments: EKG Findings:: My EKG interpretation: Ventricular rate 90, sinus rhythm,. 173, QRS 86, QTc 419. No GA prolongation, no QTC prolongation, no ST or T-wave changes noted. Overall, this EKG is unremarkable Medical Decision Making - Medical Decision Making Was pt. sent in by a medical professional or institution (, [facility], ACCOUNT SERVICE REPRESENTATIVE, urgent care, hospital, or senior care...) When possible be specific @ -No Did you speak to anyone other than the patient for history (EMS, parent, family, police, friend...)? What history was obtained from this source @ -See above Did you review nursing and triage notes (agree or disagree)? Why? @ -I reviewed and agree with nursing and triage notes Were old charts reviewed (outside hosp., previous admission, EMS record, old EKG, old radiological studies, urgent care reports/EKG's, senior care records)? Report findings @ -No old charts were reviewed Differential Diagnosis (chest pain, altered mental status, abdominal pain women, abdominal pain men, vaginal bleeding, musculoskeletal, weakness, fever, dyspnea, syncope, headache, dizziness, GI bleed, back pain, seizure, CVA, palpatations, mental health)? @ - Differential CVA: Ischemic stroke, hemorrhagic stroke, brain tumor, atypical migraine, Wernicke's encephalopathy, seizure, multiple sclerosis, meningitis, encephalitis, hypoglycemia, Guillain-Arteaga, electrolytes disturbance, myasthenia gravis.... This is not meant to be an all-inclusive list EKG interpreted by me (3pts min.). @ -See above X-rays interpreted by me (1pt min.). @ -None done CT interpreted by me (1pt min.). @ -CT brain shows no acute processes U/S interpreted by me (1pt. min.). @ -None done What testing was considered but not performed or refused? (CT, X-rays, U/S, labs)? Why? @ -None What meds were considered but not given or refused? Why? @ -None Was smoking cessation discussed for >3mins.? @ -No Were there social determinants of health that impacted care today? How? (Homelessness, low income, unemployed, alcoholism, drug addiction, transportation, low edu. Level, literacy, decrease access to med. care, group home, rehab)? @ -No Was there de-escalation of care discussed even if they declined (Discuss DNR or withdrawal of care, Hospice)? DNR status @ -No What co-morbidities impacted this encounter? (DM, HTN, Smoking, COPD, CAD, Cancer, CVA, ARF, Chemo, Hep., AIDS, mental health diagnosis, sleep apnea, morbid obesity)? @ -None Was patient admitted / discharged? Hospital course, mention meds given and route, prescriptions, significant lab abnormalities, going to OR and other pertinent info. @ -78-year-old female presents with strokelike symptoms. Patient does not meet stroke activation criteria. She has low NIH. Risk outweigh the benefits. Vital signs upon arrival are within acceptable limits. Laboratory evaluation negative. CT brain is nonacute. Patient given aspirin will be admitted consultation to neurology. Case discussed with Dr. Escobar request MRI be or dered. Did you discuss the management of the patient with other professionals (professionals i.e. , PA, ACCOUNT SERVICE REPRESENTATIVE, lab, RT, psych nurse, social sciences research scientist, credentials specialist, teacher, radiation safety officer, case advocate)? Give summary @ -See above Was critical care preformed (if so, how long)? @ -No Undiagnosed new problem with uncertain prognosis? @ -No Drug Therapy requiring intensive monitoring for toxicity (Heparin, Nitro, Insulin, Cardizem)? @ -No Were any procedures done? @ -No Diagnosis/symptom? Acute, or Chronic, or Acute on Chronic? Uncomplicated (without systemic symptoms) or Complicated (systemic symptoms)? @ -CVA/TIA Side effects of treatment? @ -No Exacerbation, Progression, or Severe Exacerbation? @ -No Poses a threat to life or bodily function? How? (Chest pain, USA, AL, pneumonia, PE, COPD, DKA, ARF, appy, cholecystitis, CVA, Diverticulitis, Homicidal, Suicidal, threat to staff... and all critical care pts) @ -yes - Lab Data Result diagrams: 01/23/24 14:41 01/23/24 14:41 Lab Results 01/23/24 01/23/24 01/23/24 Range/Units 14:41 14:41 14:41 WBC 9.0 (3.8-10.6) k/uL RBC 4.37 (3.80-5.40) m/uL Hgb 13.8 (11.4-16.0) gm/dL Hct 38.4 (34.0-46.0) % MCV 87.9 (80.0-100.0) fL MCH 31.5 (25.0-35.0) pg MCHC 35.9 (31.0-37.0) g/dL RDW 12.5 (11.5-15.5) % Plt Count 344 (150-450) k/uL MPV 7.2 Neutrophils % 65 % Lymphocytes % 23 % Monocytes % 7 % Eosinophils % 3 % Basophils % 1 % Neutrophils # 5.8 (1.3-7.7) k/uL Lymphocytes # 2.0 (1.0-4.8) k/uL Monocytes # 0.6 (0-1.0) k/uL Eosinophils # 0.3 (0-0.7) k/uL Basophils # 0.1 (0-0.2) k/uL PT 11.3 (10.0-12.5) sec INR 1.0 (<1.2) APTT 21.9 L (22.0-30.0) sec Sodium 130 L (137-145) mmol/L Potassium 3.0 L (3.5-5.1) mmol/L Chloride 89 L (98-107) mmol/L Carbon Dioxide 31 H (22-30) mmol/L Anion Gap 10 mmol/L BUN 18 H (7-17) mg/dL Creatinine 0.86 (0.52-1.04) mg/dL Est GFR (CKD-EPI)AfAm 76 (>60 ml/min/1.73 sqM) Est GFR (CKD-EPI)NonAf 66 (>60 ml/min/1.73 sqM) Glucose 126 H (74-99) mg/dL Calcium 9.8 (8.4-10.2) mg/dL Disposition Clinical Impression: Cerebrovascular accident (CVA) Disposition: ADMITTED IP TO THIS [facility] Condition: Fair Referrals: Tomas Escobar DO [Primary Care Provider] - 1-2 days Decision Time: 15:34
[2024-01-23 14:58] LABS: Basophils # (A) 0.1 k/uL (0-0.2); Basophils % (A) 1 %; Eosinophils # (A) 0.3 k/uL (0-0.7); Eosinophils % (A) 3 %; HCT 38.4 % (34.0-46.0); HGB 13.8 gm/dL (11.4-16.0); Lymphocytes % (A) 23 %; MCH 31.5 pg (25.0-35.0); MCHC 35.9 g/dL (31.0-37.0); MCV 87.9 fL (80.0-100.0); Mean Platelet Volume 7.2; Monocytes # (A) 0.6 k/uL (0-1.0); Monocytes % (A) 7 %; Neutrophils # (A) 5.8 k/uL (1.3-7.7); Neutrophils % (A) 65 %; Platelet Count 344 k/uL (150-450); RBC 4.37 m/uL (3.80-5.40); RDW 12.5 % (11.5-15.5)
[2024-01-23 15:01] LABS: African American GFR (CKD) 76 (>60 ml/min/1.73 sqM); Anion Gap 10 mmol/L; Blood Urea Nitrogen 18 mg/dL (7-17); Calcium 9.8 mg/dL (8.4-10.2); Carbon Dioxide 31 mmol/L (22-30); Chloride 89 mmol/L (98-107); Glucose 126 mg/dL (74-99); Non-African American GFR(CKD) 66 (>60 ml/min/1.73 sqM); Sodium 130 mmol/L (137-145)
[2024-01-23 15:04] LABS: Partial Thromboplastin Time 21.9 sec (22.0-30.0); Prothrombin Time 11.3 sec (10.0-12.5)
[2024-01-23] MEDS: POTASSIUM CHLORIDE ER 20 MEQ TAB.ER PO STA (15:22)
[2024-01-23] MEDS: SODIUM CHLORIDE 0.9% 1,000 ML IV STA (15:22)
[2024-01-23] MEDS ORDERED: NALOXONE 0.4 MG/ML 1 ML VIAL IV PRN (15:28)
--- NOTE | 2024-01-23 15:28 | CT ---
EXAMINATION TYPE: CT brain wo con DATE OF EXAM: 01/23/2024 COMPARISON: None HISTORY: AMS, slurred speech CT DLP: 1095.4 mGycm Automated exposure control for dose reduction was used. Findings: The ventricles, basal cisterns and sulci over convexities are moderately enlarged consistent with mod erate generalized atrophy, appropriate for the patient's age. There is moderate decreased density in the periventricular white matter consistent with chronic ische morena white matter demyelination. There is no mass effect or shift of midline structures. There is no acute intra or extra-axial hemorrhage. The posterior fossa including the brainstem, fourth ventricle and cerebellopontine angles appear kelly sly normal. The intraorbital contents appear normal symmetric Visualized paranasal sinuses and mastoid air cells are well aerated. Calvarium is intact. IMPRESSION: 1. Age appropriate senescent changes as described above. 2. No acute bleed or mass effect [facility], , 01/23/2024 3:26 PM
[2024-01-23] MEDS: ASPIRIN 81 MG PO STA (18:34)
[2024-01-23] MEDS: SODIUM CHLORIDE 0.9% 1,000 ML IV SCH (18:36)
--- NOTE | 2024-01-23 18:56 | MR ---
EXAMINATION TYPE: MR brain wo con DATE OF EXAM: 01/23/2024 6:27 PM COMPARISON: CT brain 01/23/2024, MRI brain 09/01/2016. CLINICAL INDICATION:Female, 78 years old with history of cva; PHH, TECHNIQUE: Multi planar, multi sequence imaging was performed through the brain. No gadolinium was gi mignon. FINDINGS: Motion degraded examination. Acute small region of restricted diffusion identified within the left frontoparietal region treadwell-whit e junction (series 303, image 176). The treadwell-white junctions, ventricular system, and cisterns appear unremarkable. Patchy and confluent areas of high T2/FLAIR signal intensity are seen within the ana ventricular and subcortical white matter. This is progressed from prior exam. Midline structures show no abnormality. The susceptibility weighted images do not reveal any evidence for micro-hemorrhage. Age-appropriate cerebral volume loss. The bone marrow signal is within normal limits. Bilateral aphakia. Minimal mucosal thickening inferio r right maxillary sinus. Remaining paranasal sinuses appear clear. IMPRESSION: Motion degraded examination. 1. Acute/subacute ischemia involving a small region within the left frontoparietal region. 2. Progression of nonspecific white matter changes from prior MRI in 2017, likely secondary to small vessel ischemic disease. [facility], , 01/23/2024 6:54 PM
[2024-01-24] MEDS: ALPRAZolam 0.5 MG TAB PO STA (03:42)
[2024-01-24] MEDS: ASPIRIN 81 MG PO SCH (11:42)
--- NOTE | 2024-01-24 14:33 | US ---
EXAMINATION TYPE: US carotid duplex BILAT DATE OF EXAM: 01/24/2024 COMPARISON: NONE CLINICAL INDICATION: Female, 78 years old with history of stroke; Possible stroke TECHNIQUE: Grayscale, color Doppler and spectral Doppler evaluation of the bilateral carotid systems and vertebral arteries. Indirect Doppler criteria was utilized. FINDINGS: EXAM MEASUREMENTS: RIGHT: Peak Systolic Velocity (PSV) cm/sec ----- Right CCA: 73.4 ----- Right ICA: 84.5 ----- Right ECA: 75.4 ICA/CCA ratio: 1.2 RIGHT: End Diastole cm/sec ----- Right CCA: 12.3 ----- Right ICA: 20.1 ----- Right ECA: 10.1 LEFT: Peak Systolic Velocity (PSV) cm/sec ----- Left CCA: 65.8 ----- Left ICA: 264 ----- Left ECA: 69.1 ICA/CCA ratio: 4.0 LEFT: End Diastole cm/sec ----- Left CCA: 9.8 ----- Left ICA: 42.0 ----- Left ECA: 0.0 VERTEBRALS (direction of flow): Right Vertebral: Unable to visualize Left Vertebral: Antegrade Rhythm: Normal [employer] NOTES: Elevated velocities left ICA, otherwise no evidence of significant stenosis IMPRESSION: 1. Measurement suggests severe proximal left ICA stenosis. 2. Unable to visualize the right vertebral artery. Criteria for Assigning % of Stenosis / Diameter reduction (Estimation based on the indirect measurements of the internal carotid artery velocities (ICA PSV). 1. Normal (no stenosis)=ICA PSV < 125 cm/s: ratio < 2.0: ICA EDV<40 cm/s. 2. Less than 50% stenosis=ICA PSV < 125 cm/s: ratio < 2.0: ICA EDV<40 cm/s. 3. 50 to 69% stenosis=ICA PSV of 125 to 230 cm/s: ration 2.0 ? 4.0: ICA EDV 40-100 cm/s. 4. Greater than 70% stenosis to near occlusion= ICA PSV > 230 cm/s: ratio > 4.0: ICA EDV > 100 cm/s. 5. Near occlusion= ICA PSV velocities may be low or undetectable: variable ratio and ICA EDV. 6. Total occlusion=unable to detect flow. [facility], , 01/24/2024 2:30 PM
--- NOTE | 2024-01-24 16:23 | P.CNNES ---
History of Present Illness Consult date: 01/24/24 Requesting physician: Dwayne Sesay Reason for Consult: tia/cva History of Present Illness: This is a 78-year-old woman who presented emergency department because of slurring the speech, left facial weakness. She stated that her symptoms began Tuesday at nighttime and her episode lasted for about 12 to 14 hours and cu rrently resolved. Denies being on any antiplatelet. Denies any history of stroke. Denies any A-fib. She denies tobacco use or any illicit drug use. She feels back to baseline. She does have a history of hypertension and she feels it is controlled at baseline. Some of the workup during this hospital visit consisted of: Mentation her blood pressure was 158/87 and got as high as 201/90. CT Head is reported as age-appropriate senescent changes as described above. I personally reviewed the CT and agree there is no acute or subacute ischemic changes. MRI of the brain is reported as acute/subacute ischemic involving a small region within the left frontal parietal region. Progression of nonspecific white matter changes from prior MRI in 2017, likely secondary due to small vessel ischemic disease. I personally reviewed the MRI and I do agree that the patient has acute/subacute ischemia over the pre-central gyrus on the left Review of Systems The positive and negative as per HPI. Past Medical History Past Medical History: Asthma, Cancer, Fibromyalgia, GERD/Reflux, Hyperlipidemia, Hypertension, Liver Disease, Musculoskeletal Disorder, Osteoarthritis (OA), Sleep Apnea/CPAP/BIPAP Additional Past Medical History / Comment(s): HX OF SKIN CANCER; KIDNEY CA 2016. BACK PAIN, PINCHED NERVE BACK & NECK, DDD; OCC NT RT LEG. SL EDEMA RT LEG. IBS. FATTY LIVER. SLEEP APNEA MILD ONLY. History of Any Multi-Drug Resistant Organisms: None Reported Past Surgical History: Appendectomy, Bladder Surgery, Cholecystectomy, Hysterectomy Additional Past Surgical History / Comment(s): PARTIAL HYST , LEFT OVARY & TUBE, RIGHT OVARY & TUBE, BLADDER SUSPENSION X4, BONE FROM LEFT HIP AREA USED TO REBUILD UPPER JAW. RESECTION LT KIDNEY D/T CA 09/2016. Past Anesthesia/Blood Transfusion Reactions: No Reported Reaction Past Psychological History: Depression Smoking Status: Former smoker Past Alcohol Use History: Rare Past Drug Use History: Marijuana - Past Family History Father Family Medical History: Cancer Additional Family Medical History / Comment(s): LUNG CANCER Medications and Allergies Home Medications Medication Instructions Recorded Confirmed Type Omeprazole [PriLOSEC] 40 mg PO DAILY 09/23/17 01/23/24 History Escitalopram [Lexapro] 20 mg PO DAILY 01/23/24 01/23/24 History Linaclotide [Linzess] 145 mcg PO DAILY 01/23/24 01/23/24 History Losartan [Cozaar] 50 mg PO DAILY 01/23/24 01/23/24 History Rosuvastatin [Crestor] 10 mg PO HS 01/23/24 01/23/24 History hydroCHLOROthiazide [Hydrodiuril] 12.5 mg PO DAILY 01/23/24 01/23/24 History Allergies Allergy/AdvReac Type Severity Reaction Status Date / Time iodine Allergy Severe Anaphylaxis Verified 01/23/24 15:17 shellfish derived [Shellfish] Allergy Severe Anaphylaxis Verified 01/23/24 15:17 cephalexin monohydrate Allergy Unknown Rash/Hives, Verified 01/23/24 15:17 [From Keflex] Asthma Symptoms codeine Allergy Unknown Rash/Hives, Verified 01/23/24 15:17 Asthma Symptoms Penicillins Allergy Unknown Rash/Hives, Verified 01/23/24 15:17 Asthma symptoms orange roughy Allergy Severe Anaphylaxis Uncoded 01/23/24 15:17 Physical Examination - Vital Signs Vital Signs: Vital Signs Temp Pulse Resp BP Pulse Ox 01/24/24 15:58 97.9 F 76 14 166/80 96 01/24/24 11:16 71 103/89 99 01/24/24 08:48 98.1 F 96 14 151/74 95 01/24/24 06:48 100 18 140/96 96 01/24/24 03:42 75 18 179/82 97 01/23/24 23:15 80 18 146/69 01/23/24 21:45 97.7 F 86 16 156/82 98 01/23/24 18:48 176/124 99 01/23/24 18:40 73 18 201/90 98 GENERAL: The patient is lying in bed and is not in acute distress. NEUROLOGICAL: Higher mental function: The patient is awake, alert, oriented to self, place and time. Patient is following commands. No aphasia and no neglect. Cranial nerves: The pupils are round, equal and reactive to light and accommodation. Visual mancini are full to confrontation throughout. Extraocular movement is intact no nystagmus is noted. Facial sensation is normal to touch throughout. The facial strength is normal throughout. Hearing is normal bilaterally to hand rub. Tongue is midline and moved [id number] without any difficulty. No dysarthria is noted. Shoulder shrug is normal bilaterally. Motor: The strength is 5 over 5 throughout. Normal tone and bulk. Cerebellum: Normal finger to nose heel to gonzalez bilaterally. Sensation: Sensation is normal to touch throughout. Reflexes (right/left): 2+ throughout. Plantars are downgoing bilaterally. Results - Laboratory Findings CBC and BMP: 01/23/24 14:41 01/23/24 14:41 Abnormal Lab Findings: Abnormal Labs 01/23/24 01/23/24 14:41 14:41 APTT 21.9 L Sodium 130 L Potassium 3.0 L Chloride 89 L Carbon Dioxide 31 H BUN 18 H Glucose 126 H Assessment and Plan Assessment: This is a 78-year-old woman who presented emergency department on 01/23/2024 because of left facial weakness and dysarthria. She stated that her symptoms began the day prior and it lasted between 12-14 hours. MRI of the brain shows acute to subacute ischemic stroke over left frontal parietal Acute to Subacute ischemic stroke (on MRI reported left frontal parietal. I felt it was over the left precentral gyrus). Symptoms resolved. Unknown exact etiology of stroke. Hypertensive Urgency Underlying history of hypertension and states controlled Remote Tobacco use Plan: Patient was not on any antiplatelets at home. I started the patient on aspirin 81 mg and Plavix 75mg daily. Patient was given ASA 324mg once. I started her on Lipitor 40mg daily I ordered carotid duplex, 2D echo, lipid panel, TSH, hemoglobin A1c. Every 4 hours neurochecks Cardiac monitoring Consulted PT OT and RESUME SPECIALIST Recommend permissive hypertension for an additional 24 hours and after that recommend normotensive blood pressure. Will defer the rest of the medical management to primary and other specialist For DVT prophylaxis I started the patient on subcu heparin 5000 units every 12 hours Plan discussed with the patient and the primary attending. Thank you for the consultation. Time with Patient: Greater than 30
[2024-01-24] MEDS: CLOPIDOGREL 75 MG TAB PO SCH (16:55)
[2024-01-24 19:12] LABS: LDL Cholesterol,Calculated 107.8 mg/dL (0.0-131.0)
--- NOTE | 2024-01-24 19:30 | P.HPIM ---
History of Present Illness H&P Date: 01/24/24 Patient is a pleasant 78-year-old white female who had episode of slurred speech last night continuing into the evening when her noticed she denied any weakness to her upper extremities or lower extremities she denies any loss of consciousness or dizziness she denies any headache she was noted to have a left facial droop patient denies any previous history of cerebrovascular accident. She denies any alcohol or drugs. She denies any fever. She was subsequently brought to the [facility] emergency department and found to have acute CVA and was subsequently admitted. Review of Systems GENERAL: Patient denies fever. Denies chills. EYES: Denies blurred vision. Denies vision changes. Denies eye pain. EARS, NOSE, MOUTH, & THROAT: Denies headache. Denies sore throat. Denies ear pain.Admits to left facial droop admits to slurred speech from last evening states is much improved RESPIRATORY: Denies cough. Denies shortness of breath. Denies sputum production. Denies hemoptysis. CARDIOVASCULAR: Denies chest pain or pressure. Denies palpitations. Denies arrhythmias.Admits to high blood pressure GASTROINTESTINAL: Denies abdominal pain. Denies diarrhea. Denies constipation. Denies nausea. Denies vomiting. Denies heartburn. Denies blood in the stool. History of kidney cancer GENITOURINARY: Denies urinary frequency. Denies burning. Denies dysuria. Denies cloudy urine. Denies blood in the urine. MUSCULOSKELETAL: Denies myalgias. Denies joint swelling. Denies decreased range of motion beyond patients baseline. INTEGUMENTARY: Denies pruitis. Denies rash.Admits to having skin cancer in the past surgically removed PSYCHIATRIC: Denies suicidal or homicial ideations. ENDOCRINE: Denies weight change. Denies polydipsia. Denies polyuria. HEMATOLOGIC: Denies bleeding disorders. Past Medical History Past Medical History: Asthma, Cancer, Fibromyalgia, GERD/Reflux, Hyperlipidemia, Hypertension, Liver Disease, Musculoskeletal Disorder, Osteoarthritis (OA), Sleep Apnea/CPAP/BIPAP Additional Past Medical History / Comment(s): HX OF SKIN CANCER; KIDNEY CA 2016. BACK PAIN, PINCHED NERVE BACK & NECK, DDD; OCC NT RT LEG. SL EDEMA RT LEG. IBS. FATTY LIVER. SLEEP APNEA MILD ONLY. History of Any Multi-Drug Resistant Organisms: None Reported Past Surgical History: Appendectomy, Bladder Surgery, Cholecystectomy, Hysterectomy Additional Past Surgical History / Comment(s): PARTIAL HYST , LEFT OVARY & TUBE, RIGHT OVARY & TUBE, BLADDER SUSPENSION X4, BONE FROM LEFT HIP AREA USED TO REBUILD UPPER JAW. RESECTION LT KIDNEY D/T CA 09/2016. Past Anesthesia/Blood Transfusion Reactions: No Reported Reaction Past Psychological History: Depression Smoking Status: Former smoker Past Alcohol Use History: Rare Past Drug Use History: Marijuana - Past Family History Father Family Medical History: Cancer Additional Family Medical History / Comment(s): LUNG CANCER Medications and Allergies Home Medications Medication Instructions Recorded Confirmed Type Omeprazole [PriLOSEC] 40 mg PO DAILY 09/23/17 01/23/24 History Escitalopram [Lexapro] 20 mg PO DAILY 01/23/24 01/23/24 History Linaclotide [Linzess] 145 mcg PO DAILY 01/23/24 01/23/24 History Losartan [Cozaar] 50 mg PO DAILY 01/23/24 01/23/24 History Rosuvastatin [Crestor] 10 mg PO HS 01/23/24 01/23/24 History hydroCHLOROthiazide [Hydrodiuril] 12.5 mg PO DAILY 01/23/24 01/23/24 History Allergies Allergy/AdvReac Type Severity Reaction Status Date / Time iodine Allergy Severe Anaphylaxis Verified 01/23/24 15:17 shellfish derived [Shellfish] Allergy Severe Anaphylaxis Verified 01/23/24 15:17 cephalexin monohydrate Allergy Unknown Rash/Hives, Verified 01/23/24 15:17 [From Keflex] Asthma Symptoms codeine Allergy Unknown Rash/Hives, Verified 01/23/24 15:17 Asthma Symptoms Penicillins Allergy Unknown Rash/Hives, Verified 01/23/24 15:17 Asthma symptoms orange roughy Allergy Severe Anaphylaxis Uncoded 01/23/24 15:17 Physical Exam Vitals: Vital Signs Temp Pulse Pulse Resp BP BP Pulse Ox 01/24/24 16:58 97.7 F 76 16 164/66 96 01/24/24 15:58 97.9 F 76 14 166/80 96 01/24/24 11:16 71 103/89 99 01/24/24 08:48 98.1 F 96 14 151/74 95 01/24/24 06:48 100 18 140/96 96 01/24/24 03:42 75 18 179/82 97 01/23/24 23:15 80 18 146/69 01/23/24 21:45 97.7 F 86 16 156/82 98 Intake and Output 01/24/24 01/24/24 01/24/24 06:59 14:59 22:59 Intake Total 720 Balance 720 Intake: Oral 720 Other: # Voids 1 Weight 56.699 kg GENERAL: This is a 78-year-old in no apparent distress at the time of examination. Pleasant and cooperative. HEENT: Head is atraumatic, normocephalic. Pupils are equal, round, and reactive to light. Sclerae anicteric. Conjunctivae are clear. Mucus membranes of the mouth are moist. Neck is supple. Left facial droop noted with slurred speech RESPIRATORY: Clear to auscultation. No wheezes, rales, or rhonchi. No use of accessory muscles. Patient maintaining oxygen saturation greater than 92%. No chest wall tenderness is noted on palpation or with deep breathing. CARDIOVASCULAR: Regular rate and rhythm. S1 and S2 noted. No systolic or diastolic murmur auscultated. No JVD noted. No S3 or S4 noted. GASTROINTESTINAL: No distention noted. Abdomen soft and round. Normal active bowel sounds auscultated x 4 quadrants. No pain or tenderness noted upon palpation. INTEGUMENTARY: No cyanosis. No jaundice. No rashes noted. No cellulitis noted. EXTREMITIES: 2+ peripheral pulses. No evidence of peripheral edema. No calf tenderness noted. NEUROLOGIC: Cranial nerves II-XII intact. PSYCHIATRIC: Awake, alert, and oriented X 3. Appropriate affect. Intact judgement and insight. Results CBC & Chem 7: 01/23/24 14:41 01/23/24 14:41 Thrombosis Risk Factor Assmnt - Choose All That Apply Each Risk Factor Represents 3 Points: Age 75 years or older Each Risk Factor Represents 5 Points: Stroke (< 1 month) Thrombosis Risk Factor Assessment Total Risk Factor Score: 8 Thrombosis Risk Factor Assessment Level: High Risk Assessment and Plan (1) Hyperlipidemia Current Visit: Yes Status: Acute Code(s): E78.5 - HYPERLIPIDEMIA, UNSPECIFIED SNOMED Code(s): 25077750 (2) Hypertension Current Visit: Yes Status: Acute Code(s): I10 - ESSENTIAL (PRIMARY) HYPERTENSION SNOMED Code(s): 89473633 (3) Cerebrovascular accident (CVA) Current Visit: Yes Status: Acute Code(s): I63.9 - CEREBRAL INFARCTION, UNSPECIFIED SNOMED Code(s): 520026486 (4) Dysarthria Current Visit: Yes Status: Acute Code(s): R47.1 - DYSARTHRIA AND ANARTHRIA SNOMED Code(s): 8417308 Plan: Plan admit patient full neurological workup including carotid Doppler and echocardiogram and MRI of the brain in progress patient is stable recommend antiplatelet and hypertension and cholesterol control Time with Patient: Greater than 30
[2024-01-24] MEDS: HEPARIN SODIUM,PORCINE 5,000 UNIT/ML 1 ML VIAL SQ SCH (21:16)
[2024-01-24] MEDS: ATORVASTATIN 40 MG TAB PO SCH (21:16)
[2024-01-24] MEDS: ALPRAZolam 0.5 MG TAB PO SCH (21:16)
--- NOTE | 2024-01-25 09:39 | CA ---
Transthoracic Echo Report Name: Mckenna Reid Age: 78 Gender: F : 1945 Exam Date: 01/24/2024 16:06 Exam Location: [place] [facility] Ht (in): 62 Wt (lb): 125 Ordering Physician: Froylan Rea MD Attending/Referring Phys: Paper Grader Keara Marrufo RDCS Procedure CPT: Indications: CVA Cardiac Hx: Technical Quality: Fair Contrast 1: Agitated Saline Total Dose (mL): 10 Contrast 2: Total Dose (mL): MEASUREMENTS (Male / Female) Normal Values 2D ECHO LV Diastolic Diameter PLAX 3.2 cm 4.2 - 5.9 / 3.9 - 5.3 cm LV Systolic Diameter PLAX 2.2 cm IVS Diastolic Thickness 1.2 cm 0.6 - 1.0 / 0.6 - 0.9 cm LVPW Diastolic Thickness 1.2 cm 0.6 - 1.0 / 0.6 - 0.9 cm LV Relative Wall Thickness 0.8 RV Internal Dim ED PLAX 3.1 cm LA Volume 34.7 cm??? 18 - 58 / 22 - 52 cm??? LA Volume Index 22.0 cm???/m??? 16 - 28 cm???/m??? M-MODE Aortic Root Diameter MM 3.0 cm LA Systolic Diameter MM 3.5 cm LA Ao Ratio MM 1.2 AV Cusp Separation MM 1.7 cm DOPPLER AV Peak Velocity 121.5 cm/s AV Peak Gradient 5.9 mmHg AV Mean Velocity 93.2 cm/s AV Mean Gradient 3.7 mmHg AV Velocity Time Integral 25.5 cm AI Peak Velocity 531.2 cm/s AI Peak Gradient 112.9 mmHg AI Pressure Half Time 415.0 ms LVOT Peak Velocity 90.0 cm/s LVOT Peak Gradient 3.2 mmHg LVOT Velocity Time Integral 21.0 cm MV Area PHT 3.1 cm??? Mitral E Point Velocity 76.8 cm/s Mitral A Point Velocity 107.7 cm/s Mitral E to A Ratio 0.7 MV Deceleration Time 243.0 ms MV E' Velocity 4.9 cm/s Mitral E to MV E' Ratio 15.8 TR Peak Velocity 225.8 cm/s TR Peak Gradient 20.4 mmHg Right Ventricular Systolic Press 24.6 mmHg FINDINGS Left Ventricle Mildly increased left ventricular wall thickness. Left ventricular cavity size normal. Normal left ventricular systolic function with no obvious regional wall motion abnormalities. Left ventricular ejection fraction is estimated at 55-60 %. Grade 1 diastolic dysfunction. Right Ventricle Normal right ventricular size and function. Right ventricular systolic pressure within normal limits. Right Atrium Normal right atrial size. Negative agitated saline bubble study for right to left shunt. Left Atrium Normal left atrial size. Mitral Valve Structurally normal mitral valve. No mitral stenosis. Mitral valve thickened. Mild mitral annular calcification. Mild mitral regurgitation. Aortic Valve Trileaflet aortic valve. No aortic stenosis. Mild aortic regurgitation. Aortic valve sclerosis. Tricuspid Valve Structurally normal tricuspid valve. Mild tricuspid regurgitation. Pulmonic Valve Structurally normal pulmonic valve. Trace pulmonic regurgitation. Pericardium No pericardial effusion. Aorta Normal size aortic root and proximal ascending aorta. CONCLUSIONS Normal LV size and systolic function with mild concentric LVH. Mild mitral and tricuspid and mild aortic insufficiency. Nonspecific thickening of mitral valve leaflets noted. Bubble study was somewhat suboptimal but no shunt based on available images Previewed by: Dr. Tito Moore MD (Electronically Signed) Final Date: 25 January 2024 09:37
--- NOTE | 2024-01-25 14:30 | P.PN ---
Subjective Progress Note Date: 01/25/24 I am following-up with patient and she feels she is back to baseline. Denies any new neurological issues. She states a few days prior to her symptoms that she presented with she had drooling coming out of right and left side of mouth but did not make much of it. Objective - Vital Signs Vital signs: Vital Signs Temp 98.2 F 01/25/24 11:34 Pulse 79 01/25/24 11:34 Resp 20 01/25/24 11:34 BP 146/73 01/25/24 11:34 Pulse Ox 98 01/25/24 11:34 FiO2 Intake & Output 01/24/24 01/25/24 01/25/24 18:59 06:59 18:59 Intake Total 720 120 Balance 720 120 Weight 56.699 kg 50.2 kg Intake: Oral 720 120 Other: Voiding Method Toilet Toilet # Voids 1 3 - Exam GENERAL: The patient is sitting in a recliner chair and is not in acute distress. NEUROLOGICAL: Higher mental function: The patient is awake, alert, oriented to self, place and time. Patient is following commands. No aphasia and no neglect. Cranial nerves: The pupils are round, equal and reactive to light and accommodation. Visual mancini are full to confrontation throughout. Extraocular movement is intact no nystagmus is noted. Facial sensation is normal to touch throughout. The facial strength is normal throughout. Hearing is normal bilaterally to hand rub. Tongue is midline and moved [id number] without any difficulty. No dysarthria is noted. Shoulder shrug is normal bilaterally. Motor: The strength is 5 over 5 throughout. Normal tone and bulk. Cerebellum: Normal finger to nose heel to gonzalez bilaterally. Sensation: Sensation is normal to touch throughout. Reflexes (right/left): 2+ throughout. Plantars are downgoing bilaterally. Some of the workup during this hospital visit consisted of: Lipid A1c is 5.5 TSH is 1.290 Lipid panel is triglyceride of 209, cholesterol 195, LDL is 107 and HDL of 45. CT Head is reported as age-appropriate senescent changes as described above. I personally reviewed the CT and agree there is no acute or subacute ischemic changes. MRI of the brain is reported as acute/subacute ischemic involving a small region within the left frontal parietal region. Progression of nonspecific white matter changes from prior MRI in 2017, likely secondary due to small vessel ischemic disease. I personally reviewed the MRI and I do agree that the patient has acute/subacute ischemia over the pre-central gyrus on the left. Carotid duplex: Measurement suggests severe proximal left ICA stenosis. Unable to visualize the right vertebral artery. 2D echo: Normal left ventricular size and systolic function with mild concentric left ventricular hypertrophy. Mild mitral and tricuspid and mild aortic insufficiency. Nonspecific thickening of mitral valve leaflet noted. Bubble study was somewhat suboptimal but no shunt based on available images. - Labs CBC & Chem 7: 01/23/24 14:41 01/23/24 14:41 Labs: Abnormal Lab Results - Last 24 Hours (Table) 01/24/24 Range/Units 11:48 Triglycerides 209.00 H (0.00-149.00) mg/dL VLDL Cholesterol, Calc 41.80 H (5.00-40.00) mg/dL Assessment and Plan Assessment: This is a 78-year-old woman who presented emergency department on 01/23/2024 because of left facial weakness and dysarthria. She stated a few days prior to hat has been having drooling out of the right and left mouth. She stated that her symptoms began the day prior and it lasted between 12-14 hours. MRI of the brain shows acute to subacute ischemic stroke over left frontal parietal. Acute to Subacute ischemic stroke (on MRI reported left frontal parietal. I felt it was over the left precentral gyrus). Symptoms resolved. Etiology seems due to symptomatic left ICA stenosis Severe proximal Left ICA stenosis on carotid duplex. Hypertensive Urgency Underlying history of hypertension and states controlled Remote Tobacco use Plan: Patient was not on any antiplatelets at home. I started the patient on aspirin 81 mg and Plavix 75mg daily. I increased her Lipitor 40mg daily that was started during this hospital visit to 80mg daily since can help stabilize carotid plaque. I ordered carotid duplex, 2D echo, lipid panel, TSH, hemoglobin A1c. Every 4 hours neurochecks Cardiac monitoring Consulted PT OT and [employer] Consulted vascular surgery team. Will defer the rest of the medical management to primary and other specialist For DVT prophylaxis: On subcu heparin 5000 units every 12 hours Plan discussed with the patient and her son who is at bedside. Time with Patient: Less than 30
--- NOTE | 2024-01-25 15:24 | P.GSCN ---
History of Present Illness Consult date: 01/25/24 Reason for Consult: Carotid stenosis with acute stroke Requesting physician: Froylan Rea History of present illness: This a pleasant 78-year-old white female who presented to the emergency department 2 days ago with complaints of strokelike symptoms. Apparently patient was having some slurred speech and left facial droop and drooling. Apparently symptoms had resolved initially but then symptoms have returned and varun carlos came in for further evaluation. Past medical history includes asthma, fibromyalgia, GERD, hyperlipidemia, hypertension kidney cancer, fatty liver disease, and IBS with constipation. She states symptoms are resolved she states that she feels like sometimes she may have some slurred speech but other than that symptoms have resolved completely. She denied any weakness in her upper or lower extremities. No visual changes. She denies any previous knowledge of any carotid disease. She did have an MRI of the brain that found acute/subacute ischemia involving small region within the left frontoparietal region. Progression of nonspecific white matter changes from prior MRI in 2017 likely s econdary to small vessel ischemic disease. She also had carotid duplex with us findings of severe proximal left ICA stenosis. Vascular surgery was consulted for left ICA stenosis. Review of Systems A 14 point review systems was completed all pertinent positives and negatives as stated in the HPI. Past Medical History Past Medical History: Asthma, Cancer, Fibromyalgia, GERD/Reflux, Hyperlipidemia, Hypertension, Liver Disease, Musculoskeletal Disorder, Osteoarthritis (OA), Sleep Apnea/CPAP/BIPAP Additional Past Medical History / Comment(s): HX OF SKIN CANCER; KIDNEY CA 2016. BACK PAIN, PINCHED NERVE BACK & NECK, DDD; OCC NT RT LEG. SL EDEMA RT LEG. IBS. FATTY LIVER. SLEEP APNEA MILD ONLY. History of Any Multi-Drug Resistant Organisms: None Reported Past Surgical History: Appendectomy, Bladder Surgery, Cholecystectomy, Hysterectomy Additional Past Surgical History / Comment(s): PARTIAL HYST , LEFT OVARY & TUBE, RIGHT OVARY & TUBE, BLADDER SUSPENSION X4, BONE FROM LEFT HIP AREA USED TO REBUILD UPPER JAW. RESECTION LT KIDNEY D/T CA 09/2016. Past Anesthesia/Blood Transfusion Reactions: No Reported Reaction Past Psychological History: Depression Smoking Status: Former smoker Past Alcohol Use History: Rare Past Drug Use History: Marijuana - Past Family History Father Family Medical History: Cancer Additional Family Medical History / Comment(s): LUNG CANCER Medications and Allergies Home Medications Medication Instructions Recorded Confirmed Type Omeprazole [PriLOSEC] 40 mg PO DAILY 09/23/17 01/23/24 History Escitalopram [Lexapro] 20 mg PO DAILY 01/23/24 01/23/24 History Linaclotide [Linzess] 145 mcg PO DAILY 01/23/24 01/23/24 History Losartan [Cozaar] 50 mg PO DAILY 01/23/24 01/23/24 History Rosuvastatin [Crestor] 10 mg PO HS 01/23/24 01/23/24 History hydroCHLOROthiazide [Hydrodiuril] 12.5 mg PO DAILY 01/23/24 01/23/24 History Allergies Allergy/AdvReac Type Severity Reaction Status Date / Time iodine Allergy Severe Anaphylaxis Verified 01/23/24 15:17 shellfish derived [Shellfish] Allergy Severe Anaphylaxis Verified 01/23/24 15:17 cephalexin monohydrate Allergy Unknown Rash/Hives, Verified 01/23/24 15:17 [From Keflex] Asthma Symptoms codeine Allergy Unknown Rash/Hives, Verified 01/23/24 15:17 Asthma Symptoms Penicillins Allergy Unknown Rash/Hives, Verified 01/23/24 15:17 Asthma symptoms orange roughy Allergy Severe Anaphylaxis Uncoded 01/23/24 15:17 Surgical - Exam Vital Signs Temp Pulse Resp BP Pulse Ox 98.1 F 83 16 158/87 96 01/23/24 14:19 01/23/24 14:19 01/23/24 14:19 01/23/24 14:19 01/23/24 14:19 General appearance: The patient is alert, oriented, appears in no acute dis tress. HET: Head is normocephalic and atraumatic. Pupils are equal and reactive. Neck: Supple. No audible bruit. Heart: Regular. Lungs: Equal expansion, normal respiratory effort. Abdomen: Soft, nontender, nondistended. Extremities: Normal skin color and turgor. Neurological: No focal deficits. Strength and sensation are grossly intact. Results - Labs 01/23/24 14:41 01/23/24 14:41 Abnormal Lab Results - Last 24 Hours (Table) 01/24/24 Range/Units 11:48 Triglycerides 209.00 H (0.00-149.00) mg/dL VLDL Cholesterol, Calc 41.80 H (5.00-40.00) mg/dL Diabetes panel 01/24/24 01/24/24 Range/Units 11:48 11:48 Hemoglobin A1c 5.5 (<=6.0) % Triglycerides 209.00 H (0.00-149.00) mg/dL HDL Cholesterol 45.40 (40.00-60.00) mg/dL - Imaging Comments: Carotid duplex report: PSV right ICA 84.5, ICA/CCA ratio 1.2 PSV left ICA 264, ICA/CCA ratio 4.0 Measurements suggest severe proximal left ICA stenosis. Unable to visualize right vertebral artery Brain MRI acute/subacute ischemia involving a small region within the left frontoparietal region. Progression of nonspecific white matter changes from p rior MRI in 2017 likely secondary to small vessel ischemic disease Brain CT reports age-appropriate senescent changes Echocardiogram normal LV size and systolic function with mild concentric LVH. M ild mitral and tricuspid and mild aortic insufficiency. Nonspecific thickening of mitral valve leaflets noted. Bubble study was somewhat suboptimal but no shunt based on available images. Assessment and Plan Assessment: 1. Hemodynamically severe left ICA stenosis 2. Acute/subacute ischemia involving small region within the left frontoparietal region 3. Left facial droop and slurred speech, resolved 4. Hypertension 5. Hyperlipidemia Plan: 1. CT angiogram head and neck ordered 2. Iodine allergy treatment set ordered prior to CTA 3. Continue aspirin, Plavix and statin 4. Discussed with patient if proceeding with any surgical intervention she will need to be a full code. Patient will talk this over more with her family. 5. Continue with recommendations from neurology 6. Further recommendations forthcoming per vascular surgeon 7. PT/OT/ST Thank you for this consultation, we will continue to follow. The impression and plan of care has been dictated as directed. Dr. Faulkner I performed a history and examination of this patient, discussed the same with the dictator. I agree with the dictator's note ,documented as a scribe. Any additional findings or plans will be noted.
[2024-01-25] MEDS: ATORVASTATIN 80 MG TAB PO SCH (21:27)
[2024-01-25] MEDS: LORATADINE 10 MG TAB PO STA (21:27)
[2024-01-25] MEDS: predniSONE 50 MG TAB PO ONE (21:27)
[2024-01-25] MEDS: SIMETHICONE 80 MG CHEWABLE PO STA (21:59)
[2024-01-25] MEDS: MICONAZOLE 2% VAGINAL CREAM 45 GM TUBE/KIT VAGINAL SCH (22:02)
[2024-01-25] MEDS: SIMETHICONE 80 MG CHEWABLE PO ONE (22:03)
[2024-01-26] MEDS: predniSONE 50 MG TAB PO ONE ×2 (04:14→08:03)
[2024-01-26] MEDS: diphenhydrAMINE 50 MG CAP PO ONE (08:03)
[2024-01-26] MEDS: SENNOSIDES 8.6 MG TAB PO SCH (08:03)
[2024-01-26] MEDS ORDERED: DEXTROSE 50% SYRINGE 50 ML IVP PRN ×2 (08:42)
[2024-01-26] MEDS: LOSARTAN 50 MG TAB PO SCH (08:47)
--- NOTE | 2024-01-26 10:12 | CT ---
EXAMINATION TYPE: CT angio head neck DATE OF EXAM: 01/26/2024 COMPARISON: None HISTORY: Acute stroke CT DLP: 329.7 mGycm CONTRAST: Performed with IV Contrast, patient injected with 65 mL of Isovue 370. Combination Contrast CTA cervical carotids and [place] CTA cervical carotids with 3-D recons truction Contrast CTA of the cervical carotids was performed 3-D reconstruction imaging obtained at a separate workstation. Right carotid system: Mild plaque is seen of the right common carotid artery. There is mild plaque a lso noted at the carotid bulb and proximal ICA. No significant diameter reduction. ECA is patent. Right vertebral artery appears unremarkable. Left carotid system: Mild plaque is seen of the left common carotid artery. There is mild plaque als o noted at the carotid bulb and proximal ICA. No significant diameter reduction. ECA is patent. Lef t vertebral artery appears unremarkable. IMPRESSION: 1. No significant diameter reduction to account for the patient's symptoms. CTA [place] with 3-D reconstruction Contrast CTA of the [place] was performed 3-D reconstruction imaging obtained at a separate workstation. Vertebrobasilar system as well as intracranial portions of the internal carotid arteries and their ma liza tributaries are patent. I do not see evidence for sizable aneurysm or vascular malformation. Pl ease note MRI provides greater sensitivity and specificity. Visualized brain appears grossly unremar kable. IMPRESSION: 1. No significant abnormality. NASCET criteria was used in interpretation of this exam? [facility], , 01/26/2024 10:10 AM
[2024-01-26 10:47] LABS: African American GFR (CKD) >90 (>60 ml/min/1.73 sqM); Anion Gap 14 mmol/L; Blood Urea Nitrogen 13 mg/dL (7-17); Calcium 10.1 mg/dL (8.4-10.2); Carbon Dioxide 26 mmol/L (22-30); Chloride 91 mmol/L (98-107); Glucose 166 mg/dL (74-99); Non-African American GFR(CKD) 86 (>60 ml/min/1.73 sqM); Potassium 3.8 mmol/L (3.5-5.1); Sodium 131 mmol/L (137-145)
[2024-01-26 11:31] LABS: Glucose,Whole Blood 158 mg/dL (70-110)
[2024-01-26] MEDS: INSULIN ASPART (NovoLOG) 100 UNIT/ML VIAL SQ SCH (11:36)
--- NOTE | 2024-01-26 13:14 | P.PN ---
Subjective Progress Note Date: 01/26/24 Principal diagnosis: Carotid stenosis Patient seen and examined today as a follow-up. Denies any focal deficits. No acute changes through the night. She underwent CTA head and neck this morning. Objective - Vital Signs Vital signs: Vital Signs Temp 97.4 F L 01/26/24 07:19 Pulse 93 01/26/24 07:19 Resp 17 01/26/24 07:19 BP 187/97 01/26/24 07:19 Pulse Ox 96 01/26/24 04:15 FiO2 Intake & Output 01/25/24 01/26/24 01/26/24 18:59 06:59 18:59 Intake Total 240 Balance 240 Weight 49.8 kg Intake: Intake, IV Titration 0 Amount Sodium Chloride 0.9% 1, 0 000 ml @ 20 mls/hr IV . Q24H AKIRA Rx#:[id number] Oral 240 Other: Voiding Method Toilet Toilet # Voids 2 - Exam General appearance: The patient is alert, oriented, appears in no acute distress. HET: Head is normocephalic and atraumatic. Pupils are equal and reactive. Neck: Supple. No carotid bruit. Heart: Regular. Lungs: Equal expansion, normal respiratory effort. Abdomen: Soft, nontender, nondistended. Extremities: Normal skin color and turgor. Palpable radial and DP pulses. Neurological: No focal deficits. Strength and sensation are grossly intact. - Labs CBC & Chem 7: 01/23/24 14:41 01/26/24 09:22 Assessment and Plan Assessment: 1. Hemodynamically severe left ICA stenosis per carotid duplex, discordant findings on CT angiogram. A CTA independently reviewed by Dr. Liu who feels there is significant left ICA stenosis. 2. Acute/subacute ischemia involving small region within the left frontoparietal region 3. Left facial droop and slurred speech, resolved 4. Hypertension 5. Hyperlipidemia Plan: 1. CT angiogram head and neck independently reviewed by Dr. Liu who feels there is significant left ICA stenosis 2. Consult to cardiology for clearance for carotid endarterectomy 3. Continue aspirin, Plavix and statin 4. Tentative plan for left carotid endarterectomy on 01/30/2024 5. Continue with recommendations from neurology 6. PT/OT/ST Thank you for this consultation, we will continue to follow. The impression and plan of care has been dictated as directed. Dr. Liu I performed a history and examination of this patient, discussed the same with the dictator. I agree with the dictator's note ,documented as a scribe. Any additional findings or plans will be noted.
--- NOTE | 2024-01-26 15:45 | P.PN ---
Subjective Progress Note Date: 01/26/24 I am following-up with patient and she feels she is about the same. Denies any new neurological issues. Objective - Vital Signs Vital signs: Vital Signs Temp 97.3 F L 01/26/24 11:10 Pulse 96 01/26/24 11:10 Resp 17 01/26/24 11:10 BP 172/83 01/26/24 11:10 Pulse Ox 97 01/26/24 08:00 FiO2 Intake & Output 01/25/24 01/26/24 01/26/24 18:59 06:59 18:59 Intake Total 240 600 Balance 240 600 Weight 49.8 kg Intake: Intake, IV Titration 0 Amount Sodium Chloride 0.9% 1, 0 000 ml @ 20 mls/hr IV . Q24H AKIRA Rx#:[id number] Oral 240 600 Other: Voiding Method Toilet Toilet Toilet # Voids 2 1 - Exam GENERAL: The patient is sitting in a recliner chair and is not in acute distress. NEUROLOGICAL: Higher mental function: The patient is awake, alert, oriented to self, place and time. Patient is following commands. No aphasia and no neglect. Cranial nerves: The pupils are round, equal and reactive to light and accommodation. Visual mancini are full to confrontation throughout. Extraocular movement is intact no nystagmus is noted. Facial sensation is normal to touch throughout. The facial strength is normal throughout. Hearing is normal bilaterally to hand rub. Tongue is midline and moved [id number] without any difficulty. No dysarthria is noted. Shoulder shrug is normal bilaterally. Motor: The strength is 5 over 5 throughout. Normal tone and bulk. Cerebellum: Normal finger to nose heel to gonzalez bilaterally. Sensation: Sensation is normal to touch throughout. Reflexes (right/left): 2+ throughout. Plantars are downgoing bilaterally. Some of the workup during this hospital visit consisted of: HgbA1c is 5.5 TSH is 1.290 Lipid panel is triglyceride of 209, cholesterol 195, LDL is 107 and HDL of 45. CT Head is reported as age-appropriate senescent changes as described above. I personally reviewed the CT and agree there is no acute or subacute ischemic changes. MRI of the brain is reported as acute/subacute ischemic involving a small region within the left frontal parietal region. Progression of nonspecific white matter changes from prior MRI in 2017, likely secondary due to small vessel ischemic disease. I personally reviewed the MRI and I do agree that the patient has acute/subacute ischemia over the pre-central gyrus on the left. Carotid duplex: Measurement suggests severe proximal left ICA stenosis. Unable to visualize the right vertebral artery. 2D echo: Normal left ventricular size and systolic function with mild concentric left ventricular hypertrophy. Mild mitral and tricuspid and mild aortic insufficiency. Nonspecific thickening of mitral valve leaflet noted. Bubble study was somewhat suboptimal but no shunt based on available images. CTA head and neck is reported as no significant abnormality. But vascular reviewed imaging and felt has significant left ICA stenosis. - Labs CBC & Chem 7: 01/23/24 14:41 01/26/24 09:22 Labs: Abnormal Lab Results - Last 24 Hours (Table) 01/26/24 01/26/24 Range/Units 09:22 11:30 Sodium 131 L (137-145) mmol/L Chloride 91 L (98-107) mmol/L Glucose 166 H (74-99) mg/dL POC Glucose (mg/dL) 158 H (70-110) mg/dL Assessment and Plan Assessment: This is a 78-year-old woman who presented emergency department on 01/23/2024 because of left facial weakness and dysarthria. She stated a few days prior to hat has been having drooling out of the right and left mouth. She stated that her symptoms began the day prior and it lasted between 12-14 hours. MRI of the brain shows acute to subacute ischemic stroke over left frontal parietal. Acute to Subacute ischemic stroke (on MRI reported left frontal parietal. I felt it was over the left precentral gyrus). Symptoms resolved. Etiology seems due to symptomatic left ICA stenosis Severe proximal Left ICA stenosis on carotid duplex. On CTA is reported as no significant abnormality but vascular feel there continues to be significant left ICA stenosis. Hypertensive Urgency Underlying history of hypertension and states controlled Remote Tobacco use Plan: Patient was not on any antiplatelets at home. I started the patient on aspirin 81 mg and Plavix 75mg daily. Continue Lipitor 80mg daily since can help stabilize carotid plaque. Vascular surgery team is consulted and tenative plan for left carotid endarterectomy on 01/30/2024. Every 4 hours neurochecks Cardiac monitoring Consulted PT OT and CORPORATE SPECIALIST Will defer the rest of the medical management to primary and other specialist For DVT prophylaxis: On subcu heparin 5000 units every 12 hours Plan discussed with the patient and vascular surgery team N.P. Will follow-up sporadically. Dr. Dhaliwal will resume neurology service on 01/28/2024 A.M. Time with Patient: Less than 30
[2024-01-26 16:40] LABS: Glucose,Whole Blood 162 mg/dL (70-110)
[2024-01-26 19:53] LABS: Glucose,Whole Blood 214 mg/dL (70-110)
[2024-01-27 06:11] LABS: Glucose,Whole Blood 116 mg/dL (70-110)
[2024-01-27] MEDS: SODIUM CHLORIDE 0.9% 1,000 ML IV SCH (09:22)
[2024-01-27] MEDS: CLINDAMYCIN 600 MG in DEXTROSE 5% IN WATER 50 ML IVPB STA (10:13)
[2024-01-27] MEDS: LIDOCAINE 1% INJ 10MG/ML (20 ML MDV) SQ ONE (10:14)
--- NOTE | 2024-01-27 10:16 | P.PN ---
Subjective Progress Note Date: 01/25/24 History of Present Illness H&P Date: 01/24/24 Patient is a pleasant 78-year-old white female who had episode of slurred speech last night continuing into the evening when her noticed she denied any weakness to her upper extremities or lower extremities she denies any loss of consciousness or dizziness she denies any headache she was noted to have a left facial droop patient denies any previous history of cerebrovascular accident. She denies any alcohol or drugs. She denies any fever. She was subsequently brought to the [facility] emergency department and found to have acute CVA and was subsequently admitted. 01/25/2024 symptoms improving, minimal slurred speech .brain MRI reported acute/subacute ischemia involving small region within the left frontoparietal region. Progression of nonspecific white matter changes from prior MRI in 2017 likely secondary to small vessel ischemic disease. Carotid Doppler suggested severe proximal left ICA stenosis, unable to visualize right vertebral artery. Vascular surgery consulted. CTA of head and neck pending. Echo reported normal LV function, mild concentric LVH, none specific thickening of mitral valve leaflets noted, bubble study somewhat suboptimal, no shunt based on available images. Objective - Vital Signs Vital signs: Vital Signs Temp 98.2 F 01/25/24 11:34 Pulse 79 01/25/24 11:34 Resp 20 01/25/24 11:34 BP 146/73 01/25/24 11:34 Pulse Ox 98 01/25/24 11:34 FiO2 Intake & Output 01/24/24 01/25/24 01/25/24 18:59 06:59 18:59 Intake Total 720 120 Balance 720 120 Weight 56.699 kg 50.2 kg Intake: Oral 720 120 Other: Voiding Method Toilet Toilet # Voids 1 3 - Exam GENERAL: Vital signs reviewed, sitting up in chair, NAD. HEENT: Alert and oriented x 3, atraumatic, normocephalic. Pupils are equal, round, and reactive to light. Sclerae anicteric. Conjunctivae clear. MMM. Neck is supple, no JVD. No facial droop noted, slurred speech not noted at this time. RESPIRATORY: Clear to auscultation. No wheezes, rales, or rhonchi. No use of accessory muscles. Patient maintaining oxygen saturation greater than 92%. No chest wall tenderness is noted on palpation or with deep breathing. CARDIOVASCULAR: Regular rate and rhythm. S1 and S2 noted. No systolic or diastolic murmur auscultated. No S3 or S4 noted. GASTROINTESTINAL: No distention noted. Abdomen soft and round.+BS. No pain or tenderness noted upon palpation. INTEGUMENTARY: No cyanosis. No jaundice. No rashes noted. No cellulitis noted. EXTREMITIES: 2+ peripheral pulses. No evidence of peripheral edema. No calf t enderness noted. NEUROLOGIC: Cranial nerves II-XII intact. Strength and sensation grossly intact. - Labs CBC & Chem 7: 01/23/24 14:41 01/26/24 09:22 Labs: Abnormal Lab Results - Last 24 Hours (Table) 01/24/24 Range/Units 11:48 Triglycerides 209.00 H (0.00-149.00) mg/dL VLDL Cholesterol, Calc 41.80 H (5.00-40.00) mg/dL Assessment and Plan Assessment: Acute/subacute ischemic CVA within the left frontal parietal region, accompanied by left facial droop and dysarthria Severe left proximal ICA stenosis, CTA head and neck pending Hypertensive urgency Hyperlipidemia Hyponatremia, mild Plan: Continue on current medication resume ,monitoring and symptomatic treatment. Vascular consult in place.CTA of head and neck pending. Maintained on aspirin ,Plavix, Lipitor. Continue neurochecks .neurology workup in progress. Prognosis guarded given multiple complex medical issues. The impression and plan of care has been dictated as directed. : I performed a history and examination of this patient, discussed the same with the dictator. I agree with the dictator's note ,documented as a scribe. Any additional findings or plans will be noted.
--- NOTE | 2024-01-27 11:03 | P.CRDCN ---
History of Present Illness Consult date: 01/27/24 History of present illness: This is [ ] EKG: Chest x-ray: Laboratory studies: Home cardiac medications: Review Of Systems: At the time of my exam: CONSTITUTIONAL: Denies fever or chills. HEENT: Denies blurred vision, vision changes, or eye pain. Denies hemoptysis CARDIOVASCULAR: Denies chest pain. Denies orthopnea. Denies PND. Denies palpitations RESPIRATORY: Denies shortness of breath. GASTROINTESTINAL: Denies abdominal pain. Denies nausea or vomiting. HEMATOLOGIC: Denies bleeding disorders. GENITOURINARY: Denies any blood in urine. SKIN: Denies puritis. Denies rash. Physical examination: Gen: This is [ ] VS: reviewed HEENT: Head is atraumatic, normocephalic. Pupils equal, round. Sclerae is anicteric. NECK: Supple. No JVD. LUNGS: Clear to auscultation. No wheezes or rhonchi. No intercostal retractions. HEART: Regular rate and rhythm. No murmur. ABDOMEN: Soft No tenderness. EXTREMITIES: No pedal edema. No calf tenderness. NEUROLOGICAL: Patient is awake, alert and oriented x3. Assessment: [ ] Plan: Resume patient's home cardiac medications Obtain 2-D echocardiogram and Doppler study to assess cardiac structure and function Further recommendations to follow based upon clinical course Thank you kindly for this consultation. Nurse practitioner note has been reviewed, I agree with documented findings and plan of care. Patient was seen and examined. Past Medical History Past Medical History: Asthma, Cancer, Fibromyalgia, GERD/Reflux, Hyperlipidemia, Hypertension, Liver Disease, Musculoskeletal Disorder, Osteoarthritis (OA), Sleep Apnea/CPAP/BIPAP Additional Past Medical History / Comment(s): HX OF SKIN CANCER; KIDNEY CA 2016. BACK PAIN, PINCHED NERVE BACK & NECK, DDD; OCC NT RT LEG. SL EDEMA RT LEG. IBS. FATTY LIVER. SLEEP APNEA MILD ONLY. History of Any Multi-Drug Resistant Organisms: None Reported Past Surgical History: Appendectomy, Bladder Surgery, Cholecystectomy, Hysterectomy Additional Past Surgical History / Comment(s): PARTIAL HYST , LEFT OVARY & TUBE, RIGHT OVARY & TUBE, BLADDER SUSPENSION X4, BONE FROM LEFT HIP AREA USED TO REBUILD UPPER JAW. RESECTION LT KIDNEY D/T CA 09/2016. Past Anesthesia/Blood Transfusion Reactions: No Reported Reaction Past Psychological History: Depression Smoking Status: Former smoker Past Alcohol Use History: Rare Past Drug Use History: Marijuana - Past Family History Father Family Medical History: Cancer Additional Family Medical History / Comment(s): LUNG CANCER Medications and Allergies Home Medications Medication Instructions Recorded Confirmed Type Omeprazole [PriLOSEC] 40 mg PO DAILY 09/23/17 01/23/24 History Escitalopram [Lexapro] 20 mg PO DAILY 01/23/24 01/23/24 History Linaclotide [Linzess] 145 mcg PO DAILY 01/23/24 01/23/24 History Losartan [Cozaar] 50 mg PO DAILY 01/23/24 01/23/24 History Rosuvastatin [Crestor] 10 mg PO HS 01/23/24 01/23/24 History hydroCHLOROthiazide [Hydrodiuril] 12.5 mg PO DAILY 01/23/24 01/23/24 History Allergies Allergy/AdvReac Type Severity Reaction Status Date / Time iodine Allergy Severe Anaphylaxis Verified 01/23/24 15:17 shellfish derived [Shellfish] Allergy Severe Anaphylaxis Verified 01/23/24 15:17 cephalexin monohydrate Allergy Unknown Rash/Hives, Verified 01/23/24 15:17 [From Keflex] Asthma Symptoms codeine Allergy Unknown Rash/Hives, Verified 01/23/24 15:17 Asthma Symptoms Penicillins Allergy Unknown Rash/Hives, Verified 01/23/24 15:17 Asthma symptoms orange roughy Allergy Severe Anaphylaxis Uncoded 01/23/24 15:17 Physical Exam Vitals: Vital Signs Temp Pulse Resp BP Pulse Ox 01/26/24 11:10 97.3 F L 96 17 172/83 01/26/24 08:00 98.3 F 101 H 18 142/81 97 01/26/24 07:19 97.4 F L 93 17 187/97 01/26/24 04:15 97.9 F 85 16 157/80 96 01/25/24 23:45 85 18 162/93 98 01/25/24 20:00 97.9 F 72 20 148/87 98 01/25/24 15:47 97.9 F 80 20 132/79 97 Intake and Output 01/25/24 01/26/24 01/26/24 22:59 06:59 14:59 Intake Total 0 600 Balance 0 600 Intake: Intake, IV Titration 0 Amount Sodium Chloride 0.9% 1, 0 000 ml @ 20 mls/hr IV . Q24H AKIRA Rx#:[id number] Oral 600 Other: Voiding Method Toilet Toilet Toilet # Voids 2 1 Weight 49.8 kg Results 01/23/24 14:41 01/26/24 09:22 Comprehensive Metabolic Panel 01/26/24 Range/Units 09:22 Sodium 131 L (137-145) mmol/L Potassium 3.8 (3.5-5.1) mmol/L Chloride 91 L (98-107) mmol/L Carbon Dioxide 26 (22-30) mmol/L BUN 13 (7-17) mg/dL Creatinine 0.64 (0.52-1.04) mg/dL Glucose 166 H (74-99) mg/dL Calcium 10.1 (8.4-10.2) mg/dL Current Medications Generic Name Dose Route Start Last Admin Trade Name Freq PRN Reason Stop Dose Admin Alprazolam 0.5 mg 01/24/24 21:00 01/25/24 21:27 Alprazolam 0.5 Mg Tab PO 0.5 mg HS AKIRA Administration Aspirin 81 mg 01/24/24 11:15 01/26/24 08:03 Aspirin 81 Mg PO 81 mg DAILY AKIRA Administration Atorvastatin Calcium 80 mg 01/25/24 21:00 01/25/24 21:27 Atorvastatin 80 Mg Tab PO 80 mg HS AKIRA Administration Clopidogrel Bisulfate 75 mg 01/24/24 16:30 01/26/24 08:03 Clopidogrel 75 Mg Tab PO 75 mg DAILY AKIRA Administration Dextrose/Water 25 ml 01/26/24 08:42 Dextrose 50% Syringe 50 Ml IVP PER PROTOCOL PRN Hypoglycemia Protocol Dextrose/Water 50 ml 01/26/24 08:42 Dextrose 50% Syringe 50 Ml IVP PER PROTOCOL PRN Hypoglycemia Protocol Heparin Sodium (Porcine) 5,000 unit 01/24/24 21:00 01/26/24 08:03 Heparin Sodium,Porcine 5,000 Unit/Ml 1 Ml Vial SQ 5,000 unit Q12HR AKIRA Administration Insulin Aspart 0 unit 01/26/24 12:30 01/26/24 11:36 Insulin Aspart (Novolog) 100 Unit/Ml Vial SQ 1 unit ACHS AKIRA Administration Protocol Losartan Potassium 50 mg 01/26/24 09:00 01/26/24 08:47 Losartan 50 Mg Tab PO 50 mg DAILY AKIRA Administration Miconazole Nitrate 1 applic 01/25/24 22:00 01/25/24 22:02 Miconazole 2% Vaginal Cream 45 Gm Tube/Kit VAGINAL 1 applic HS AKIRA Administration Naloxone HCl 0.2 mg 01/23/24 15:28 Naloxone 0.4 Mg/Ml 1 Ml Vial IV Q2M PRN Opioid Reversal Senna 8.6 mg 01/26/24 09:00 01/26/24 08:03 Sennosides 8.6 Mg Tab PO 8.6 mg DAILY AKIRA Administration Intake and Output 01/25/24 01/26/24 01/26/24 22:59 06:59 14:59 Intake Total 0 600 Balance 0 600 Intake: Intake, IV Titration 0 Amount Sodium Chloride 0.9% 1, 0 000 ml @ 20 mls/hr IV . Q24H AKIRA Rx#:[id number] Oral 600 Other: Voiding Method Toilet Toilet Toilet # Voids 2 1 Weight 49.8 kg 01/23/24 14:41 01/26/24 09:22
--- NOTE | 2024-01-27 11:11 | P.EPPROC ---
- EP Procedure Note Electrophysiology Procedure Note: Loop monitor implant Primary physicians: Dr. Escobar Wool Hat Flanger: Dr. Mendes Indication: Cryptogenic stroke, embolic Patient was brought to the EP lab in a fasting state. Written informed consent was obtained prior to the procedure. The left pectoral area was prepped and draped per protocol. Intravenous antibiotic was administered preoperatively. A subcutaneous Loop monitor was implanted successfully and the wound was closed per protocol. The device was programmed to detect significant arianna- arrhythmic and tachy-arrhythmic events, per protocol. Device and programming details: Cryptogenic stroke/suspected A-fib protocol
--- NOTE | 2024-01-27 11:12 | P.PN ---
Subjective Progress Note Date: 01/27/24 Principal diagnosis: Carotid stenosis Patient is seen and examined today as a follow-up. She is denying any new focal deficits. She is tentatively scheduled for left carotid endarterectomy on Tuesday. Awaiting surgical clearance from cardiology. Objective - Vital Signs Vital signs: Vital Signs Temp 97.9 F 01/27/24 03:21 Pulse 95 01/27/24 03:21 Resp 18 01/27/24 03:21 BP 162/84 01/27/24 03:21 Pulse Ox 97 01/27/24 03:21 FiO2 Intake & Output 01/26/24 01/27/24 01/27/24 18:59 06:59 18:59 Intake Total 1860 Balance 1860 Weight 50.9 kg Intake: Oral 1859 Other: Voiding Method Toilet Toilet # Voids 3 - Exam General appearance: The patient is alert, oriented, appears in no acute distress. HET: Head is normocephalic and atraumatic. Pupils are equal and reactive. Neck: Supple. No carotid bruit. Heart: Regular. Lungs: Equal expansion, normal respiratory effort. Abdomen: Soft, nontender, nondistended. Extremities: Normal skin color and turgor. Palpable radial and DP pulses. Neurological: No focal deficits. Strength and sensation are grossly intact. - Labs CBC & Chem 7: 01/23/24 14:41 01/26/24 09:22 Labs: Abnormal Lab Results - Last 24 Hours (Table) 01/26/24 01/26/24 01/26/24 Range/Units 09:22 11:30 16:39 Sodium 131 L (137-145) mmol/L Chloride 91 L (98-107) mmol/L Glucose 166 H (74-99) mg/dL POC Glucose (mg/dL) 158 H 162 H (70-110) mg/dL 01/26/24 01/27/24 Range/Units 19:52 06:10 Sodium (137-145) mmol/L Chloride (98-107) mmol/L Glucose (74-99) mg/dL POC Glucose (mg/dL) 214 H 116 H (70-110) mg/dL Assessment and Plan Assessment: 1. Hemodynamically severe left ICA stenosis per carotid duplex, discordant findings on CT angiogram. A CTA independently reviewed by Dr. Liu who feels there is significant left ICA stenosis. 2. Acute/subacute ischemia involving small region within the left fron toparietal region 3. Left facial droop and slurred speech, resolved 4. Hypertension 5. Hyperlipidemia Plan: 1. CT angiogram head and neck independently reviewed by Dr. Liu who feels there is significant left ICA stenosis 2. Consult to cardiology for clearance for carotid endarterectomy 3. Continue aspirin, Plavix and statin 4. Tentative plan for left carotid endarterectomy on 01/30/2024 5. Continue with recommendations from neurology 6. PT/OT/ST Thank you for this consultation, we will continue to follow. The impression and plan of care has been dictated as directed. Dr. Faulkner I performed a history and examination of this patient, discussed the same with the dictator. I agree with the dictator's note ,documented as a scribe. Any additional findings or plans will be noted.
[2024-01-27 11:34] LABS: Glucose,Whole Blood 94 mg/dL (70-110)
[2024-01-27] MEDS: ESCITALOPRAM 20 MG TAB PO SCH (11:41)
--- NOTE | 2024-01-27 13:01 | P.PN ---
Subjective Progress Note Date: 01/27/24 History of Present Illness H&P Date: 01/24/24 Patient is a pleasant 78-year-old white female who had episode of slurred speech last night continuing into the evening when her noticed she denied any weakness to her upper extremities or lower extremities she denies any loss of consciousness or dizziness she denies any headache she was noted to have a left facial droop patient denies any previous history of cerebrovascular accident. She denies any alcohol or drugs. She denies any fever. She was subsequently brought to the [facility] emergency department and found to have acute CVA and was subsequently admitted. 01/25/2024 symptoms improving, minimal slurred speech .brain MRI reported acute/subacute ischemia involving small region within the left frontoparietal region. Progression of nonspecific white matter changes from prior MRI in 2017 likely secondary to small vessel ischemic disease. Carotid Doppler suggested severe proximal left ICA stenosis, unable to visualize right vertebral artery. Vascular surgery consulted. CTA of head and neck pending. Echo reported normal LV function, mild concentric LVH, none specific thickening of mitral valve leaflets noted, bubble study somewhat suboptimal, no shunt based on available images. 01/26/2024 symptoms currently resolved, denies any new symptoms. evaluated by vascular surgery, CTA head and neck reviewed ,scheduled for left carotid endarterectomy on Tuesday. Denies chest pain, palpitations or shortness of breath. Labs pending. Objective - Vital Signs Vital signs: Vital Signs Temp 97.3 F L 01/26/24 11:10 Pulse 96 01/26/24 11:10 Resp 17 01/26/24 11:10 BP 172/83 01/26/24 11:10 Pulse Ox 97 01/26/24 08:00 FiO2 Intake & Output 01/25/24 01/26/24 01/26/24 18:59 06:59 18:59 Intake Total 240 960 Balance 240 960 Weight 49.8 kg Intake: Intake, IV Titration 0 Amount Sodium Chloride 0.9% 1, 0 000 ml @ 20 mls/hr IV . Q24H AKIRA Rx#:[id number] Oral 240 960 Other: Voiding Method Toilet Toilet Toilet # Voids 2 1 - Exam GENERAL: Vital signs reviewed, sitting up in chair, NAD. HEENT: Alert and oriented x 3, atraumatic, normocephalic. Pupils are equal, round, reactive to light. Sclerae anicteric. Conjunctivae clear. MMM. Neck is supple, no JVD. RESPIRATORY: Unlabored, equal air entry, clear to auscultation. CARDIOVASCULAR: Regular rate and rhythm. S1 and S2 noted. No systolic or diastolic murmur auscultated. No S3 or S4 noted. GASTROINTESTINAL: No distention noted. Abdomen soft and round.+BS. . INTEGUMENTARY: No cyanosis. No jaundice. No rashes noted. EXTREMITIES: 2+ peripheral pulses. No evidence of peripheral edema. No calf t enderness noted. NEUROLOGIC: Cranial nerves II-XII intact. Strength and sensation grossly intact. - Labs CBC & Chem 7: 01/23/24 14:41 01/26/24 09:22 Labs: Abnormal Lab Results - Last 24 Hours (Table) 01/26/24 01/26/24 Range/Units 09:22 11:30 Sodium 131 L (137-145) mmol/L Chloride 91 L (98-107) mmol/L Glucose 166 H (74-99) mg/dL POC Glucose (mg/dL) 158 H (70-110) mg/dL Assessment and Plan Assessment: Acute/subacute ischemic CVA within the left frontal parietal region, accompanied by left facial droop and dysarthria. Severe left proximal ICA stenosis Hypertensive urgency Hyperlipidemia Hyponatremia, mild Plan: Continue on current medication resume ,monitoring and symptomatic treatment. Labs pending. Maintained on aspirin ,Plavix, Lipitor. Evaluated by vascular surgery and patient is scheduled for left carotid endarterectomy on Tuesday . Cardiology consult in place, recommendations pending. prognosis guarded given multiple complex medical issues. The impression and plan of care has been dictated as directed. : I performed a history and examination of this patient, discussed the same with the dictator. I agree with the dictator's note ,documented as a scribe. Any additional findings or plans will be noted.
--- NOTE | 2024-01-27 16:26 | P.PN ---
Subjective Progress Note Date: 01/27/24 78-year-old white female who had episode of slurred speech last night continuing into the evening when her noticed she denied any weakness to her upper extremities or lower extremities she denies any loss of consciousness or dizziness she denies any headache she was noted to have a left facial droop patient denies any previous history of cerebrovascular accident. She denies any alcohol or drugs. She denies any fever. She was subsequently brought to the [facility] emergency department and found to have acute CVA and was subsequently admitted. --symptoms improving, minimal slurred speech .brain MRI reported acute/subacute ischemia involving small region within the left frontoparietal region. Progression of nonspecific white matter changes from prior MRI in 2017 likely secondary to small vessel ischemic disease. Carotid Doppler suggested severe proximal left ICA stenosis, unable to visualize right vertebral artery. Vascular surgery consulted. CTA of head and neck pending. Echo reported normal LV function, mild concentric LVH, none specific thickening of mitral valve leaflets noted, bubble study somewhat suboptimal, no shunt based on available images. Objective - Vital Signs Vital signs: Vital Signs Temp 97.2 F L 01/27/24 10:55 Pulse 73 01/27/24 11:30 Resp 18 01/27/24 11:30 BP 160/68 01/27/24 11:30 Pulse Ox 97 01/27/24 11:30 FiO2 Intake & Output 01/26/24 01/27/24 01/27/24 18:59 06:59 18:59 Intake Total 1860 530 Balance 1860 530 Weight 50.9 kg Intake: IV 54 Oral 1860 476 Other: Voiding Method Toilet Toilet Toilet # Voids 3 1 - Exam GENERAL: Vital signs reviewed, sitting up in chair, NAD. HEENT: Alert and oriented x 3, atraumatic, normocephalic. Pupils are equal, round, reactive to light. Sclerae anicteric. Conjunctivae clear. MMM. Neck is supple, no JVD. RESPIRATORY: Unlabored, equal air entry, clear to auscultation. CARDIOVASCULAR: Regular rate and rhythm. S1 and S2 noted. No systolic or diastolic murmur auscultated. No S3 or S4 noted. GASTROINTESTINAL: No distention noted. Abdomen soft and round.+BS. . INTEGUMENTARY: No cyanosis. No jaundice. No rashes noted. EXTREMITIES: 2+ peripheral pulses. No evidence of peripheral edema. No calf tenderness noted. NEUROLOGIC: Cranial nerves II-XII intact. Strength and sensation grossly intact. - Labs CBC & Chem 7: 01/23/24 14:41 01/26/24 09:22 Labs: Abnormal Lab Results - Last 24 Hours (Table) 01/26/24 01/26/24 01/27/24 Range/Units 16:39 19:52 06:10 POC Glucose (mg/dL) 162 H 214 H 116 H (70-110) mg/dL Assessment and Plan Assessment: Acute or subacute ischemic stroke on MRI Left ICA stenosis Hypertensive urgency Hyperlipidemia Aortic valve insufficiency Remote tobacco use and dependence Plan: Continue current cardiac medications: Aspirin 81 mg daily Lipitor 80 mg daily, Plavix 75 mg daily, losartan 50 mg daily. Patient has been started on aspirin and Plavix by neurology Schedule patient for loop recorder implantation to rule out atrial fibrillation today with Dr. Artis
[2024-01-27 16:36] LABS: Glucose,Whole Blood 135 mg/dL (70-110)
[2024-01-27 20:02] LABS: Glucose,Whole Blood 142 mg/dL (70-110)
[2024-01-27] MEDS: ACETAMINOPHEN TAB 325 MG TAB PO PRN (20:56)
[2024-01-28] MEDS: IBUPROFEN 400 MG TAB PO PRN (00:17)
[2024-01-28 05:51] LABS: Glucose,Whole Blood 97 mg/dL (70-110)
[2024-01-28 05:52] LABS: Basophils # (A) 0.1 k/uL (0-0.2); Basophils % (A) 1 %; Eosinophils # (A) 0.2 k/uL (0-0.7); Eosinophils % (A) 2 %; HCT 36.1 % (34.0-46.0); HGB 12.8 gm/dL (11.4-16.0); Lymphocytes % (A) 37 %; MCH 31.4 pg (25.0-35.0); MCHC 35.3 g/dL (31.0-37.0); Mean Platelet Volume 7.7; Monocytes # (A) 0.5 k/uL (0-1.0); Monocytes % (A) 5 %; Neutrophils # (A) 5.8 k/uL (1.3-7.7); Neutrophils % (A) 54 %; Platelet Count 284 k/uL (150-450); RBC 4.06 m/uL (3.80-5.40); RDW 12.6 % (11.5-15.5); WBC 10.7 k/uL (3.8-10.6)
[2024-01-28 06:07] LABS: African American GFR (CKD) 89 (>60 ml/min/1.73 sqM); Anion Gap 5 mmol/L; Blood Urea Nitrogen 20 mg/dL (7-17); Calcium 9.4 mg/dL (8.4-10.2); Carbon Dioxide 31 mmol/L (22-30); Chloride 100 mmol/L (98-107); Glucose 91 mg/dL (74-99); Non-African American GFR(CKD) 77 (>60 ml/min/1.73 sqM); Potassium 3.7 mmol/L (3.5-5.1); Sodium 136 mmol/L (137-145)
[2024-01-28] MEDS: KETOROLAC 15 MG/ML 1 ML VIAL IVP STA (08:40)
[2024-01-28 11:44] LABS: Glucose,Whole Blood 105 mg/dL (70-110)
[2024-01-28] MEDS: LOSARTAN 50 MG TAB PO STA (12:27)
--- NOTE | 2024-01-28 12:27 | P.PN ---
Subjective Progress Note Date: 01/28/24 The patient is a 78-year-old female who follows in the office with Dr. Mendes, presented to the hospital for left-sided facial droop. Patient was found to have a left frontal parietal acute/subacute CVA. Initial carotid Doppler shows significant stenosis of the left ICA, however CT angio of the neck showed no significant abnormalities. Case was reviewed by vascular surgery and she will undergo left carotid endarterectomy next week, according to the patient. Patient interviewed and examined resting comfortably in bed. She states she feels well. She has no left-sided weakness and is up ambulating around the unit. No chest pain or pressure. No difficulty breathing. GENERAL: Well-appearing, well-nourished and in no acute distress. NECK: Supple without JVD or thyromegaly. LUNGS: Breath sounds clear to auscultation bilaterally. Respiration equal and unlabored. No wheezes, rales or rhonchi. HEART: Regular rate and rhythm without murmurs, rubs or gallops. S1 and S2 heard. Dressing clean dry and intact. EXTREMITIES: Normal range of motion, no edema. No clubbing or cyanosis. Peripheral pulses intact and strong. TELEMETRY: Sinus rhythm overnight LABS: WBC 10.7, hematocrit 36.1, hemoglobin 12.8, platelet 284, sodium 136, potassium 3.7, BUN 20, creatinine 0.75 IMPRESSION: Acute or subacute ischemic stroke on MRI Left ICA stenosis Hypertensive urgency Hyperlipidemia Aortic valve insufficiency Remote tobacco use and dependence PLAN: Increase losartan to 100 mg daily Once blood pressure is controlled, patient may be discharged from the cardiac standpoint Outpatient follow-up in 1 week with device clinic for new loop placement I am dictating on behalf of Dr Abhishek Artis's history/physical and assessment/plan. Objective - Vital Signs Vital signs: Vital Signs Temp 98 F 01/28/24 04:00 Pulse 76 01/28/24 08:00 Resp 16 01/28/24 08:00 BP 189/81 01/28/24 08:00 Pulse Ox 99 01/28/24 08:00 FiO2 Intake & Output 01/27/24 01/28/24 01/28/24 18:59 06:59 18:59 Intake Total 1306 0 118 Balance 1306 0 118 Weight 50.4 kg Intake: IV 54 Oral 1252 0 118 Other: Voiding Method Toilet Toilet Toilet # Voids 2 1 - Labs CBC & Chem 7: 01/28/24 05:39 01/28/24 05:39 Labs: Abnormal Lab Results - Last 24 Hours (Table) 01/27/24 01/27/24 01/28/24 Range/Units 16:34 20:00 05:39 WBC 10.7 H (3.8-10.6) k/uL Sodium (137-145) mmol/L Carbon Dioxide (22-30) mmol/L BUN (7-17) mg/dL POC Glucose (mg/dL) 135 H 142 H (70-110) mg/dL 01/28/24 Range/Units 05:39 WBC (3.8-10.6) k/uL Sodium 136 L (137-145) mmol/L Carbon Dioxide 31 H (22-30) mmol/L BUN 20 H (7-17) mg/dL POC Glucose (mg/dL) (70-110) mg/dL
[2024-01-28] MEDS: amLODIPine 5 MG TAB PO SCH (12:28)
[2024-01-28 16:26] LABS: Glucose,Whole Blood 110 mg/dL (70-110)
[2024-01-28 20:07] LABS: Glucose,Whole Blood 116 mg/dL (70-110)
[2024-01-28] MEDS: CALCIUM CARBONATE 500 MG CHEWABLE PO PRN (20:18)
[2024-01-29] MEDS: ALPRAZolam 0.5 MG TAB PO PRN (00:15)
[2024-01-29] MEDS: traMADol 50 MG TAB PO PRN (00:15)
[2024-01-29 07:13] LABS: Glucose,Whole Blood 117 mg/dL (70-110)
[2024-01-29 07:47] LABS: Basophils # (A) 0.1 k/uL (0-0.2); Basophils % (A) 1 %; Eosinophils # (A) 0.7 k/uL (0-0.7); Eosinophils % (A) 5 %; HGB 13.1 gm/dL (11.4-16.0); Lymphocytes # (A) 3.9 k/uL (1.0-4.8); Lymphocytes % (A) 29 %; MCH 30.6 pg (25.0-35.0); MCHC 33.5 g/dL (31.0-37.0); MCV 91.4 fL (80.0-100.0); Mean Platelet Volume 6.9; Monocytes # (A) 0.7 k/uL (0-1.0); Monocytes % (A) 6 %; Neutrophils # (A) 7.5 k/uL (1.3-7.7); Neutrophils % (A) 57 %; Platelet Count 311 k/uL (150-450); RBC 4.27 m/uL (3.80-5.40); RDW 12.2 % (11.5-15.5); WBC 13.2 k/uL (3.8-10.6)
[2024-01-29 08:03] LABS: African American GFR (CKD) >90 (>60 ml/min/1.73 sqM); Anion Gap 9 mmol/L; Blood Urea Nitrogen 15 mg/dL (7-17); Calcium 9.4 mg/dL (8.4-10.2); Carbon Dioxide 26 mmol/L (22-30); Chloride 98 mmol/L (98-107); Glucose 102 mg/dL (74-99); Non-African American GFR(CKD) 84 (>60 ml/min/1.73 sqM); Potassium 3.4 mmol/L (3.5-5.1); Sodium 133 mmol/L (137-145)
[2024-01-29] MEDS: LOSARTAN 50 MG TAB PO SCH (08:29)
[2024-01-29 11:33] LABS: Glucose,Whole Blood 123 mg/dL (70-110)
--- NOTE | 2024-01-29 12:12 | P.PN ---
Subjective Progress Note Date: 01/29/24 The patient is a 78-year-old female who follows in the office with Dr. Mendes, presented to the hospital for left-sided facial droop. Patient was found to have a left frontal parietal acute/subacute CVA. Initial carotid Doppler shows significant stenosis of the left ICA, however CT angio of the neck showed no significant abnormalities. Case was reviewed by vascular surgery and she will undergo left carotid endarterectomy next week. Overnight the patient states she did well. She has absolutely no complaints. No chest pain or chest pressure. No difficulty breathing. No dizziness or lightheadedness. She has been up ambulating around the room. GENERAL: Well-appearing, well-nourished and in no acute distress. NECK: Supple without JVD or thyromegaly. No carotid bruit. LUNGS: Breath sounds clear to auscultation bilaterally. Respiration equal and unlabored. No wheezes, rales or rhonchi. HEART: Regular rate and rhythm without murmurs, rubs or gallops. S1 and S2 heard. Dressing clean dry and intact. EXTREMITIES: Normal range of motion, no edema. No clubbing or cyanosis. Peripheral pulses intact and strong. TELEMETRY: Sinus rhythm overnight LABS: WBC 13.2, hemoglobin 13.1, hematocrit 39.0, platelets 311, sodium 133, potassium 3.4, BUN 15, creatinine 0.70 IMPRESSION: Acute or subacute ischemic stroke on MRI Left ICA stenosis Hypertensive urgency Hyperlipidemia Aortic valve insufficiency Remote tobacco use and dependence PLAN: Continue current antihypertensive regimen Patient may proceed with carotid endarterectomy if clinically indicated No further recommendations from the cardiac standpoint I am dictating on behalf of Dr Abhishek Artis's history/physical and assessment /plan. Objective - Vital Signs Vital signs: Vital Signs Temp 98.1 F 01/29/24 04:00 Pulse 102 H 01/29/24 08:00 Resp 16 01/29/24 08:00 BP 141/63 01/29/24 08:00 Pulse Ox 99 01/29/24 08:00 FiO2 Intake & Output 01/28/24 01/29/24 01/29/24 18:59 06:59 18:59 Intake Total 594 240 Balance 594 240 Weight 50.6 kg Intake: Oral 594 240 Other: Voiding Method Toilet Toilet Toilet # Voids 1 1 - Labs CBC & Chem 7: 01/29/24 07:02 01/29/24 07:02 Labs: Abnormal Lab Results - Last 24 Hours (Table) 01/28/24 01/29/24 01/29/24 Range/Units 20:05 06:38 07:02 WBC 13.2 H (3.8-10.6) k/uL Sodium (137-145) mmol/L Potassium (3.5-5.1) mmol/L Glucose (74-99) mg/dL POC Glucose (mg/dL) 116 H 117 H (70-110) mg/dL 01/29/24 01/29/24 Range/Units 07:02 11:32 WBC (3.8-10.6) k/uL Sodium 133 L (137-145) mmol/L Potassium 3.4 L (3.5-5.1) mmol/L Glucose 102 H (74-99) mg/dL POC Glucose (mg/dL) 123 H (70-110) mg/dL
[2024-01-29] MEDS: POTASSIUM CHLORIDE ER 10 MEQ TAB.ER.PRT PO STA (12:28)
--- NOTE | 2024-01-29 15:01 | P.PN ---
Subjective Progress Note Date: 01/28/24 78-year-old white female who had episode of slurred speech last night continuing into the evening when her noticed she denied any weakness to her upper extremities or lower extremities she denies any loss of consciousness or dizziness she denies any headache she was noted to have a left facial droop patient denies any previous history of cerebrovascular accident. She denies any alcohol or drugs. She denies any fever. She was subsequently brought to the [facility] emergency department and found to have acute CVA and was subsequently admitted. --symptoms improving, minimal slurred speech .brain MRI reported acute/subacute ischemia involving small region within the left frontoparietal region. Progression of nonspecific white matter changes from prior MRI in 2017 likely secondary to small vessel ischemic disease. Carotid Doppler suggested severe proximal left ICA stenosis, unable to visualize right vertebral artery. Vascular surgery consulted. CTA of head and neck pending. Echo reported normal LV function, mild concentric LVH, none specific thickening of mitral valve leaflets noted, bubble study somewhat suboptimal, no shunt based on available images. 01/28/2024 Patient is seen and evaluated with family at bedside; reports worsening chronic back pain Vital signs are reviewed and remained stable Lab review shows a WBC of 10.7, hemoglobin of 12.8 and platelet count of 284, sodium 136, potassium 3.7, BUNs/creatinine of 20/0.75 -Cardiology recommending to increase losartan to 100 mg daily; patient presented with hypertensive urgency; blood pressure remains elevated Left ICA stenosis with acute or subacute acute ischemic stroke on MRI; for possible carotid endarterectomy on Tuesday Objective - Vital Signs Vital signs: Vital Signs Temp 98 F 01/28/24 04:00 Pulse 76 01/28/24 08:00 Resp 16 01/28/24 08:00 BP 189/81 01/28/24 08:00 Pulse Ox 99 01/28/24 08:00 FiO2 Intake & Output 01/27/24 01/28/24 01/28/24 18:59 06:59 18:59 Intake Total 1306 0 Balance 1306 0 Weight 50.4 kg Intake: IV 54 Oral 1252 0 Other: Voiding Method Toilet Toilet # Voids 2 1 - Exam GENERAL: Vital signs reviewed, sitting up in chair, NAD. HEENT: Alert and oriented x 3, atraumatic, normocephalic. Pupils are equal, round, reactive to light. Sclerae anicteric. Conjunctivae clear. MMM. Neck is supple, no JVD. RESPIRATORY: Unlabored, equal air entry, clear to auscultation. CARDIOVASCULAR: Regular rate and rhythm. S1 and S2 noted. No systolic or diastolic murmur auscultated. No S3 or S4 noted. GASTROINTESTINAL: No distention noted. Abdomen soft and round.+BS. . INTEGUMENTARY: No cyanosis. No jaundice. No rashes noted. EXTREMITIES: 2+ peripheral pulses. No evidence of peripheral edema. No calf tenderness noted. NEUROLOGIC: Cranial nerves II-XII intact. Strength and sensation grossly intact. - Labs CBC & Chem 7: 01/29/24 07:02 01/29/24 07:02 Labs: Abnormal Lab Results - Last 24 Hours (Table) 01/27/24 01/27/24 01/28/24 Range/Units 16:34 20:00 05:39 WBC 10.7 H (3.8-10.6) k/uL Sodium (137-145) mmol/L Carbon Dioxide (22-30) mmol/L BUN (7-17) mg/dL POC Glucose (mg/dL) 135 H 142 H (70-110) mg/dL 01/28/24 Range/Units 05:39 WBC (3.8-10.6) k/uL Sodium 136 L (137-145) mmol/L Carbon Dioxide 31 H (22-30) mmol/L BUN 20 H (7-17) mg/dL POC Glucose (mg/dL) (70-110) mg/dL Assessment and Plan Assessment: Acute or subacute ischemic stroke on MRI Left ICA stenosis Hypertensive urgency Hyperlipidemia Aortic valve insufficiency Remote tobacco use and dependence Plan: Continue current cardiac medications: Aspirin 81 mg daily Lipitor 80 mg daily, Plavix 75 mg daily, losartan 50 mg daily. Patient has been started on aspirin and Plavix by neurology Schedule patient for loop recorder implantation to rule out atrial fibrillation today with Dr. Artis
--- NOTE | 2024-01-29 15:03 | P.PN ---
Subjective Progress Note Date: 01/29/24 78-year-old white female who had episode of slurred speech last night continuing into the evening when her noticed she denied any weakness to her upper extremities or lower extremities she denies any loss of consciousness or dizziness she denies any headache she was noted to have a left facial droop patient denies any previous history of cerebrovascular accident. She denies any alcohol or drugs. She denies any fever. She was subsequently brought to the [facility] emergency department and found to have acute CVA and was subsequently admitted. --symptoms improving, minimal slurred speech .brain MRI reported acute/subacute ischemia involving small region within the left frontoparietal region. Progression of nonspecific white matter changes from prior MRI in 2017 likely secondary to small vessel ischemic disease. Carotid Doppler suggested severe proximal left ICA stenosis, unable to visualize right vertebral artery. Vascular surgery consulted. CTA of head and neck pending. Echo reported normal LV function, mild concentric LVH, none specific thickening of mitral valve leaflets noted, bubble study somewhat suboptimal, no shunt based on available images. 01/28/2024 Patient is seen and evaluated with family at bedside; reports worsening chronic back pain Vital signs are reviewed and remained stable Lab review shows a WBC of 10.7, hemoglobin of 12.8 and platelet count of 284, sodium 136, potassium 3.7, BUNs/creatinine of 20/0.75 -Cardiology recommending to increase losartan to 100 mg daily; patient presented with hypertensive urgency; blood pressure remains elevated Left ICA stenosis with acute or subacute acute ischemic stroke on MRI; for possible carotid endarterectomy on Tuesday01/29/2024 Patient seen and evaluated resting in bed; has been placed on Ultram for back pain; reports adequate pain control Signs are reviewed and stable with temperature of 98.1, pulse 96, respirations 16 and blood pressure 143/67 WBC 13.2, hemoglobin 13.1, hematocrit 39.0, platelets 311, sodium 133, potassium 3.4, BUN 15, creatinine 0.70 -- Cardiology on board and recommending to continue with current therapy -- Possible carotid endarterectomy tomorrow for left ICA stenosis with acute/subacute ischemic stroke Objective - Vital Signs Vital signs: Vital Signs Temp 98.1 F 01/29/24 04:00 Pulse 102 H 01/29/24 08:00 Resp 16 01/29/24 08:00 BP 141/63 01/29/24 08:00 Pulse Ox 99 01/29/24 08:00 FiO2 Intake & Output 01/28/24 01/29/24 01/29/24 18:59 06:59 18:59 Intake Total 594 240 Balance 594 240 Weight 50.6 kg Intake: Oral 594 240 Other: Voiding Method Toilet Toilet # Voids 1 1 - Exam GENERAL: Vital signs reviewed, sitting up in chair, NAD. HEENT: Alert and oriented x 3, atraumatic, normocephalic. Pupils are equal, round, reactive to light. Sclerae anicteric. Conjunctivae clear. MMM. Neck is supple, no JVD. RESPIRATORY: Unlabored, equal air entry, clear to auscultation. CARDIOVASCULAR: Regular rate and rhythm. S1 and S2 noted. No systolic or diastolic murmur auscultated. No S3 or S4 noted. GASTROINTESTINAL: No distention noted. Abdomen soft and round.+BS. . INTEGUMENTARY: No cyanosis. No jaundice. No rashes noted. EXTREMITIES: 2+ peripheral pulses. No evidence of peripheral edema. No calf tenderness noted. NEUROLOGIC: Cranial nerves II-XII intact. Strength and sensation grossly intact. - Labs CBC & Chem 7: 01/29/24 07:02 01/29/24 07:02 Labs: Abnormal Lab Results - Last 24 Hours (Table) 01/28/24 01/29/24 01/29/24 Range/Units 20:05 06:38 07:02 WBC 13.2 H (3.8-10.6) k/uL Sodium (137-145) mmol/L Potassium (3.5-5.1) mmol/L Glucose (74-99) mg/dL POC Glucose (mg/dL) 116 H 117 H (70-110) mg/dL 01/29/24 Range/Units 07:02 WBC (3.8-10.6) k/uL Sodium 133 L (137-145) mmol/L Potassium 3.4 L (3.5-5.1) mmol/L Glucose 102 H (74-99) mg/dL POC Glucose (mg/dL) (70-110) mg/dL Assessment and Plan Assessment: Acute or subacute ischemic stroke on MRI Left ICA stenosis Hypertensive urgency Hyperlipidemia Aortic valve insufficiency Remote tobacco use and dependence Plan: Continue current cardiac medications: Aspirin 81 mg daily Lipitor 80 mg daily, Plavix 75 mg daily, losartan 50 mg daily. Patient has been started on aspirin and Plavix by neurology Schedule patient for loop recorder implantation to rule out atrial fibrillation today with Dr. Artis
[2024-01-29 16:33] LABS: Glucose,Whole Blood 109 mg/dL (70-110)
[2024-01-29 20:09] LABS: Glucose,Whole Blood 132 mg/dL (70-110)
[2024-01-30 06:19] LABS: Glucose,Whole Blood 99 mg/dL (70-110)
[2024-01-30 08:46] LABS: Basophils # (A) 0.1 k/uL (0-0.2); Basophils % (A) 1 %; Eosinophils # (A) 0.8 k/uL (0-0.7); Eosinophils % (A) 9 %; HCT 36.9 % (34.0-46.0); HGB 12.5 gm/dL (11.4-16.0); Lymphocytes # (A) 3.8 k/uL (1.0-4.8); Lymphocytes % (A) 41 %; MCH 31.2 pg (25.0-35.0); MCHC 33.9 g/dL (31.0-37.0); Mean Platelet Volume 7.2; Monocytes # (A) 0.4 k/uL (0-1.0); Monocytes % (A) 4 %; Neutrophils % (A) 43 %; Platelet Count 312 k/uL (150-450); RDW 12.2 % (11.5-15.5); WBC 9.2 k/uL (3.8-10.6)
[2024-01-30 08:59] LABS: African American GFR (CKD) 59 (>60 ml/min/1.73 sqM); Anion Gap 6 mmol/L; Blood Urea Nitrogen 24 mg/dL (7-17); Calcium 9.8 mg/dL (8.4-10.2); Carbon Dioxide 32 mmol/L (22-30); Chloride 95 mmol/L (98-107); Glucose 87 mg/dL (74-99); Non-African American GFR(CKD) 51 (>60 ml/min/1.73 sqM); Potassium 4.6 mmol/L (3.5-5.1); Sodium 133 mmol/L (137-145)
[2024-01-30 11:09] LABS: Appearance,Urine Cloudy (Clear); Bacteria,Urine Many /hpf; Bilirubin,Urine Negative (Negative); Blood,Urine Trace (Negative); Color,Urine Light Yellow; Glucose,Urine (UA) Negative (Negative); Ketones,Urine Negative (Negative); Leukocyte Esterase,Urine Large (Negative); Nitrite,Urine Positive (Negative); Protein,Urine Trace (Negative); RBC,Urine 1 /hpf (0-5); Specific Gravity,Urine 1.012 (1.001-1.035); Squamous Epithelial Cell,Urine 1 /hpf (0-4); Urobilinogen,Urine <2.0 mg/dL (<2.0); WBC,Urine >182 /hpf (0-5)
--- NOTE | 2024-01-30 11:48 | P.ANPRN ---
Procedure Note - Anesthesia - Invasive Line Left Arterial Line Time Out Performed: Yes Date of Procedure: 01/30/24 Time of Procedure: 11:35 Location of Patient: PreOp Preparation: Sterile Prep Arterial Line Location: Radial Ultrasound Used: No Narrative: Invasive line placement per sterile protocol utilized.AttemptX1. Tolerated well.
[2024-01-30] MEDS: DEXAMETHASONE SOD PHOSPHATE 4 MG/ML 1 ML VIAL IVP STA (12:22)
[2024-01-30] MEDS: LACTATED RINGERS 1,000 ML IV ONE ×2 (12:39)
[2024-01-30] MEDS ORDERED: ESMOLOL 100 MG/10 ML VIAL ONE (13:09)
[2024-01-30] MEDS ORDERED: SUCCINYLCHOLINE CHLORIDE 200 MG/10 ML VIAL IV ONE (13:09)
[2024-01-30] MEDS ORDERED: LABETALOL 5 MG/ML VIAL MDV ONE (13:09)
[2024-01-30] MEDS ORDERED: fentaNYL (PF) 50 MCG/ML 2 ML AMP ONE (13:09)
[2024-01-30] MEDS ORDERED: ROCURONIUM 10 MG/ML (5 ML VIAL) IV ONE (13:09)
[2024-01-30] MEDS ORDERED: PROTAMINE SULFATE 10 MG/ML 5 ML VIAL ONE (13:09)
[2024-01-30] MEDS ORDERED: NEOSTIGMINE 1 MG/ML 10 ML VIAL ONE (13:09)
[2024-01-30] MEDS ORDERED: GLYCOPYRROLATE 0.2 MG/ML 2 ML VIAL ONE (13:09)
[2024-01-30] MEDS ORDERED: PROPOFOL 10 MG/ML 20 ML VIAL IV ONE (13:09)
[2024-01-30] MEDS ORDERED: HEPARIN SODIUM,PORCINE 5,000 UNIT/ML 1 ML VIAL ONE (13:09)
[2024-01-30] MEDS ORDERED: PHENYLEPHRINE-0.9% NACL SYG 1,000 MCG/10 ML SYRINGE ONE (13:09)
[2024-01-30] MEDS ORDERED: NITROGLYCERIN-D5W PMX 50 MG/250 ML BOTTLE IV ONE (13:09)
[2024-01-30] MEDS ORDERED: PHENYLEPHRINE 10 MG/ML VIAL ONE (13:09)
[2024-01-30] MEDS ORDERED: LIDOCAINE 1% INJ 10MG/ML (20 ML MDV) ONE (13:09)
[2024-01-30] MEDS: SODIUM CHLORIDE 0.9% 50 ML with ceFAZolin 2,000 MG IV ONE (13:14)
[2024-01-30] MEDS: THROMBIN (BOVINE) 5,000 UNIT VIAL MISCELLANE ONE (13:52)
[2024-01-30] MEDS: HEPARIN SODIUM (1,000 UNIT/ML) 2,000 UNIT in SODIUM CHLORIDE 0.9% 1,000 ML IRRIGATION ONE (13:53)
[2024-01-30] MEDS: ceFAZolin 2 GM in SODIUM CHLORIDE 0.9% 500 ML 500 ML IRRIGATION ONE (13:55)
[2024-01-30] MEDS ORDERED: ACETAMINOPHEN TAB 325 MG TAB PO PRN (14:59)
[2024-01-30] MEDS ORDERED: MAG HYDROX/AL HYDROX/SIMETH 30 ML CUP PO PRN (14:59)
[2024-01-30] MEDS ORDERED: TRIMETHOBENZAMIDE 100 MG/ML 2 ML VIAL IM PRN (14:59)
--- NOTE | 2024-01-30 16:10 | P.OP ---
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 Postoperative Diagnosis: Same. Procedure(s) Performed: Left carotid endarterectomy with patch angioplasty. Implants: None. Anesthesia: LENA Surgeon: Shawn Liu Estimated Blood Loss (ml): 180 Pathology: other (Left carotid plaque.) Condition: stable Disposition: ICU Indications for Procedure: Patient is a 78-year-old female who presented with left hemispheric CVA symptoms. These have since resolved. Workup including carotid duplex and CTA of the carotids demonstrated hemodynamically severe left ICA stenosis. Given her symptoms and degree of stenosis the patient was felt to be a good candidate for carotid endarterectomy. The procedure, risk and benefits were discussed. All questions were answered patient's satisfaction. Consent form was signed. Description of Procedure: Patient was brought to the op room placed in the spine position administered general endotracheal anesthesia administered by the department of anesthesiology. Patient received 2 g of Ancef intravenously in the perioperative phase for prophylactic antibiotic therapy. Patient's left lateral neck supraclavicular and anterior chest wall areas were sterilely prepped and draped in the usual manner. Linear incision along the anterior border the sternocleidomastoid muscle was made carried down through the subcutaneous tissues. Hemostasis was achieved using electrocautery. Platysma muscle was incised and the dissection was then carried further along the anterior border the sternocleidomastoid muscle. The facial vein was identified dissected free of investing tissues and ligated with silk suture and transected. The carotid sheath was identified. The common carotid artery was identified dissected free of investing tissues and encircled with Vesseloops. The dissection was then carried cephalad to the level of the bulb area. The vagus nerve was identified and left undisturbed. The superior thyroid artery actually tracked posterior laterally and this was ligated with silk suture and divided allowing for much improved access to the carotid bulb area. The external carotid artery was identified and circumflex with Ves seloops. The dissection was then carried cephalad along the internal carotid to a point distal to the plaque. The artery was encircled Vesseloops. The patient was systemically heparinized and after adequate circulation time the Vesseloops were drawn closed beginning with the internal carotid, followed by the common carotid and finally the external carotid artery. Arteriotomy was made longitudinally and extended with Mccall Metzenbaums scissors into the internal carotid segment. Back bleeding was brisk. Stump pressure demonstrated mean of 90 mmHg. In spite of this the transcranial oximeter demonstrated a drop in perfusion. A shunt was then placed first in the internal carotid and backbled and then placed in the common carotid artery restoring direct flow into the ICA. In spite of this no change in the cerebral pulse oximeter was noted and as such the shunt was removed. Endarterectomy was begun at the common level extended to the bulb level where a retraction endarterectomy was performed on the external segment. The dissection was then carried cephalad into the internal carotid and the distal end feathered off well without need for any tacking suture. The lumen was inspected for any loose and free-floating material and where identified was removed. Patch angioplasty closure utilizing bovine pericardium and 6-0 Prolene suture placed in running fashion was performed. Just prior to completion of the anastomotic line backbleeding through the internal carotid as well as the external and common carotid was performed and no thrombus was retrieved. The anastomotic line was completed. The internal carotid was backbled and occluded at its origin. The Vesseloops surrounding the external and common carotid segments were loosened and flow was restored into the external segment thus flushing any potential debris into the external segment. Flow was then restored into the internal segment. Bleeding at the superior aspect of the patch angioplasty was identified and this was controlled with 6-0 Prolene suture. 2 additional points along the anastomotic line were noted to be bleeding and controlled with 6-0 Prolene suture. Once this was completed the patient received 12.5 mg of protamine. Topical thrombin and Gelfoam and eventually Floseal was placed about the anastomotic line to help assure hemostasis. The wound was irrigated and reinspected. Hemostasis was judged to be adequate. Doppler demonstrated good Doppler flow in the internal segment distal to the patch angioplasty. Deep tissues were closed with 3-0 Vicryl dermis was closed with 4-0 Monocryl placed in running intradermal fashion. Steri-Strips were applied. Patient tolerated the procedure well, awoke without apparent neurologic deficit and was transferred to the recovery area in satisfactory and stable condition.
[2024-01-30] MEDS: hydrALAZINE HCL 20 MG/ML 1 ML VIAL IVP STA (16:38)
[2024-01-30] MEDS: IV FLUID CONTINUATION 1,000 ML IV ONE (17:04)
[2024-01-30 17:27] LABS: Glucose,Whole Blood 215 mg/dL (70-110)
[2024-01-30] MEDS: ONDANSETRON 4 MG/2 ML VIAL IVP STA (18:10)
[2024-01-30 19:39] LABS: Glucose,Whole Blood 159 mg/dL (70-110)
[2024-01-30] MEDS: NITROGLYCERIN-D5W PMX 50 MG in DEXTROSE/WATER 1 250ML.BAG IV SCH (20:25)
[2024-01-30] MEDS ORDERED: NON FORMULARY DRUG (Rosuvastatin 10 MG Tablet) PO SCH (21:00)
--- NOTE | 2024-01-30 22:27 | P.PN ---
Subjective Progress Note Date: 01/30/24 78-year-old white female who had episode of slurred speech last night continuing into the evening when her noticed she denied any weakness to her upper extremities or lower extremities she denies any loss of consciousness or dizziness she denies any headache she was noted to have a left facial droop patient denies any previous history of cerebrovascular accident. She denies any alcohol or drugs. She denies any fever. She was subsequently brought to the [facility] emergency department and found to have acute CVA and was subsequently admitted. --symptoms improving, minimal slurred speech .brain MRI reported acute/subacute ischemia involving small region within the left frontoparietal region. Progression of nonspecific white matter changes from prior MRI in 2017 likely secondary to small vessel ischemic disease. Carotid Doppler suggested severe proximal left ICA stenosis, unable to visualize right vertebral artery. Vascular surgery consulted. CTA of head and neck pending. Echo reported normal LV function, mild concentric LVH, none specific thickening of mitral valve leaflets noted, bubble study somewhat suboptimal, no shunt based on available images. 01/28/2024 Patient is seen and evaluated with family at bedside; reports worsening chronic back pain Vital signs are reviewed and remained stable Lab review shows a WBC of 10.7, hemoglobin of 12.8 and platelet count of 284, sodium 136, potassium 3.7, BUNs/creatinine of 20/0.75 -Cardiology recommending to increase losartan to 100 mg daily; patient presented with hypertensive urgency; blood pressure remains elevated Left ICA stenosis with acute or subacute acute ischemic stroke on MRI; for possible carotid endarterectomy on Tuesday01/29/2024 Patient seen and evaluated resting in bed; has been placed on Ultram for back pain; reports adequate pain control Signs are reviewed and stable with temperature of 98.1, pulse 96, respirations 16 and blood pressure 143/67 WBC 13.2, hemoglobin 13.1, hematocrit 39.0, platelets 311, sodium 133, potassium 3.4, BUN 15, creatinine 0.70 -- Cardiology on board and recommending to continue with current therapy -- Possible carotid endarterectomy tomorrow for left ICA stenosis with acute/subacute ischemic stroke 01/30/2024 Patient is evaluated today will be going for left carotid endartectomy today. Status post loop recorder. BUN 24, creatinine 1.05, sodium 133. Review of Systems Constitutional: Denied any fatigue denied any fever. Cardio vascular: denied any chest pain, palpitations Gastrointestinal: denied any nausea, vomiting, diarrhea Pulmonary: Denied any shortness of breath cough Neurologic denied any new focal deficits All inpatient medications were reviewed and appropriate changes in these medications as dictated in the interval history and assessment and plan. PHYSICAL EXAMINATION: GENERAL: The patient is alert and oriented x3, not in any acute distress. Well developed, well nourished. HEENT: Pupils are round and equally reacting to light. EOMI. No scleral icterus. No conjunctival pallor. Normocephalic, atraumatic. No pharyngeal erythema. No thyromegaly. CARDIOVASCULAR: S1 and S2 present. No murmurs, rubs, or gallops. PULMONARY: Chest is clear to auscultation, no wheezing or crackles. ABDOMEN: Soft, nontender, nondistended, normoactive bowel sounds. No palpable organomegaly. MUSCULOSKELETAL: No joint swelling or deformity. EXTREMITIES: No cyanosis, clubbing, or pedal edema. NEUROLOGICAL: Gross neurological examination did not reveal any focal deficits. SKIN: Overweight no rashes. Assessment and Plan Acute or subacute ischemic stroke on MRI Left ICA stenosis Hypertensive urgency Hyperlipidemia Aortic valve insufficiency Remote tobacco use and dependence Plan: Continue current cardiac medications: Aspirin 81 mg daily Lipitor 80 mg daily, Plavix 75 mg daily, losartan 50 mg daily. Patient has been started on aspirin and Plavix by neurology Patient is status post loop recorder implantation Continues on cardiac telemetry Patient will be going for left carotid endartectomy today. The impression and plan of care has been dictated by Ning Frazier, Nurse Practitioner as directed. Dr. Rhonda MD I have performed a history and physical examination and medical decision making of this patient, discussed the same with the dictator, and agree with the dictators assessment and plan as written, documented as a scribe. Based on total visit time, I have performed more than 50% of this visit. Objective - Vital Signs Vital signs: Vital Signs Temp 98.8 F 01/30/24 20:00 Pulse 118 H 01/30/24 21:15 Resp 12 01/30/24 21:15 BP 153/82 01/30/24 21:00 Pulse Ox 100 01/30/24 21:15 FiO2 Intake & Output 01/30/24 01/30/24 01/31/24 06:59 18:59 06:59 Intake Total 2092 Output Total 2830 Balance -738 Intake: IV 2091 Sodium Chloride 0.9% 1, 40 000 ml @ 20 mls/hr IV . Q24H [facility] Rx#:[id number] Oral 0 Output: Urine 2650 Estimated Blood Loss 180 Other: Voiding Method Toilet Toilet Indwelling Catheter # Voids 1 1 ABP, PAP, CO, CI - Last Documented Arterial Blood Pressure 206/80 - Labs CBC & Chem 7: 01/30/24 07:26 01/30/24 07:26 Labs: Abnormal Lab Results - Last 24 Hours (Table) 01/30/24 01/30/24 01/30/24 Range/Units 07:26 07:26 10:00 Eosinophils # 0.8 H (0-0.7) k/uL Sodium 133 L (137-145) mmol/L Chloride 95 L (98-107) mmol/L Carbon Dioxide 32 H (22-30) mmol/L BUN 24 H (7-17) mg/dL Creatinine 1.05 H (0.52-1.04) mg/dL POC Glucose (mg/dL) (70-110) mg/dL Urine Appearance Cloudy H (Clear) Urine Protein Trace H (Negative) Urine Blood Trace H (Negative) Urine Nitrite Positive H (Negative) Ur Leukocyte Esterase Large H (Negative) Urine WBC >182 H (0-5) /hpf Urine WBC Clumps Many H (None) /hpf Urine Bacteria Many H (None) /hpf 01/30/24 01/30/24 Range/Units 17:25 19:38 Eosinophils # (0-0.7) k/uL Sodium (137-145) mmol/L Chloride (98-107) mmol/L Carbon Dioxide (22-30) mmol/L BUN (7-17) mg/dL Creatinine (0.52-1.04) mg/dL POC Glucose (mg/dL) 215 H 159 H (70-110) mg/dL Urine Appearance (Clear) Urine Protein (Negative) Urine Blood (Negative) Urine Nitrite (Negative) Ur Leukocyte Esterase (Negative) Urine WBC (0-5) /hpf Urine WBC Clumps (None) /hpf Urine Bacteria (None) /hpf Assessment and Plan Time with Patient: Less than 30
[2024-01-31 04:55] LABS: Basophils % (A) 0 %; Eosinophils % (A) 0 %; HCT 29.7 % (34.0-46.0); HGB 10.4 gm/dL (11.4-16.0); Lymphocytes # (A) 1.6 k/uL (1.0-4.8); Lymphocytes % (A) 11 %; MCH 31.1 pg (25.0-35.0); MCV 88.9 fL (80.0-100.0); Mean Platelet Volume 7.4; Monocytes # (A) 0.8 k/uL (0-1.0); Monocytes % (A) 5 %; Neutrophils # (A) 12.7 k/uL (1.3-7.7); Neutrophils % (A) 83 %; Platelet Count 353 k/uL (150-450); RBC 3.34 m/uL (3.80-5.40); RDW 12.7 % (11.5-15.5); WBC 15.3 k/uL (3.8-10.6)
[2024-01-31 05:07] LABS: African American GFR (CKD) >90 (>60 ml/min/1.73 sqM); Anion Gap 6 mmol/L; Blood Urea Nitrogen 19 mg/dL (7-17); Calcium 9.3 mg/dL (8.4-10.2); Carbon Dioxide 26 mmol/L (22-30); Chloride 97 mmol/L (98-107); Glucose 110 mg/dL (74-99); Non-African American GFR(CKD) 82 (>60 ml/min/1.73 sqM); Potassium 4.6 mmol/L (3.5-5.1); Sodium 129 mmol/L (137-145)
[2024-01-31 06:06] LABS: Glucose,Whole Blood 113 mg/dL (70-110)
[2024-01-31] MEDS: PANTOPRAZOLE 40 MG TABLET PO SCH (06:33)
[2024-01-31] MEDS: BENZOCAINE/MENTHOL LOZENG 1 EACH LOZENGE MUCOUS MEM PRN (06:35)
--- NOTE | 2024-01-31 08:22 | P.PN ---
Subjective Progress Note Date: 01/30/24 Patient was initially seen by Dr. Froylan Rea. Please refer to his note for details. Patient is a 78-year-old female with acute CVA and has symptomatic left ICA stenosis. Patient had undergone left carotid endarterectomy with patch angioplasty today. Patient was seen for follow-up. Patient is reclining in the bed, appears comfortable. Complains of some neck pain from surgery, but otherwise no new f ocal symptoms. No headache or dizziness. Some of the workup during this hospital visit consisted of: HgbA1c is 5.5 TSH is 1.290 Lipid panel is triglyceride of 209, cholesterol 195, LDL is 107 and HDL of 45. CT Head is reported as age-appropriate senescent changes as described above. I personally reviewed the CT and agree there is no acute or subacute ischemic changes. MRI of the brain is reported as acute/subacute ischemic involving a small region within the left frontal parietal region. Progression of nonspecific white matter changes from prior MRI in 2017, likely secondary due to small vessel ischemic disease. I personally reviewed the MRI and I do agree that the patient has acute/subacute ischemia over the pre-central gyrus on the left. Carotid duplex: Measurement suggests severe proximal left ICA stenosis. Unable to visualize the right vertebral artery. 2D echo: Normal left ventricular size and systolic function with mild concentric left ventricular hypertrophy. Mild mitral and tricuspid and mild aortic insufficiency. Nonspecific thickening of mitral valve leaflet noted. Bubble study was somewhat suboptimal but no shunt based on available images. CTA head and neck is reported as no significant abnormality. But vascular reviewed imaging and felt has significant left ICA stenosis. Objective - Vital Signs Vital signs: Vital Signs Temp 98.8 F 01/30/24 20:00 Pulse 118 H 01/30/24 21:15 Resp 12 01/30/24 21:15 BP 153/82 01/30/24 21:00 Pulse Ox 100 01/30/24 21:15 FiO2 Intake & Output 01/30/24 01/30/24 01/31/24 06:59 18:59 06:59 Intake Total 2092 Output Total 2830 Balance -738 Intake: IV 2092 Sodium Chloride 0.9% 1, 40 000 ml @ 20 mls/hr IV . Q24H [facility] Rx#:[id number] Oral 0 Output: Urine 2650 Estimated Blood Loss 180 Other: Voiding Method Toilet Toilet Indwelling Catheter # Voids 1 1 ABP, PAP, CO, CI - Last Documented Arterial Blood Pressure 206/80 - Exam Patient's mental status, speech and language functions are normal. No aphasia. On cranial examination pupils are equal, round and reacting, visual mancini are full, with no neglect. Her extraocular muscles intact with no nystagmus. Face is symmetric and tongue protrudes to midline. On muscle strength testing there is no pronator drift and the strength is normal in the arms and legs. Sensory to touch is equal with no neglect. No ataxia for [id number] testing. - Labs CBC & Chem 7: 01/31/24 04:47 01/31/24 04:47 Labs: Abnormal Lab Results - Last 24 Hours (Table) 01/30/24 01/30/24 01/30/24 Range/Units 07:26 07:26 10:00 Eosinophils # 0.8 H (0-0.7) k/uL Sodium 133 L (137-145) mmol/L Chloride 95 L (98-107) mmol/L Carbon Dioxide 32 H (22-30) mmol/L BUN 24 H (7-17) mg/dL Creatinine 1.05 H (0.52-1.04) mg/dL POC Glucose (mg/dL) (70-110) mg/dL Urine Appearance Cloudy H (Clear) Urine Protein Trace H (Negative) Urine Blood Trace H (Negative) Urine Nitrite Positive H (Negative) Ur Leukocyte Esterase Large H (Negative) Urine WBC >182 H (0-5) /hpf Urine WBC Clumps Many H (None) /hpf Urine Bacteria Many H (None) /hpf 01/30/24 01/30/24 Range/Units 17:25 19:38 Eosinophils # (0-0.7) k/uL Sodium (137-145) mmol/L Chloride (98-107) mmol/L Carbon Dioxide (22-30) mmol/L BUN (7-17) mg/dL Creatinine (0.52-1.04) mg/dL POC Glucose (mg/dL) 215 H 159 H (70-110) mg/dL Urine Appearance (Clear) Urine Protein (Negative) Urine Blood (Negative) Urine Nitrite (Negative) Ur Leukocyte Esterase (Negative) Urine WBC (0-5) /hpf Urine WBC Clumps (None) /hpf Urine Bacteria (None) /hpf Assessment and Plan Assessment: This is a 78-year-old woman who presented emergency department on 01/23/2024 because of left facial weakness and dysarthria. She stated a few days prior to hat has been having drooling out of the right and left mouth. She stated that her symptoms began the day prior and it lasted between 12-14 hours. MRI of the brain shows acute to subacute ischemic stroke over left frontal parietal. Acute to Subacute ischemic stroke (on MRI reported left frontal parietal. Symptoms resolved. Etiology seems due to symptomatic left ICA stenosis Severe proximal Left ICA stenosis on carotid duplex. On CTA is reported as no significant abnormality but vascular feel there continues to be significant left ICA stenosis. Status post left carotid endarterectomy 01/30/2024 Hypertensive Urgency Underlying history of hypertension and states controlled Remote Tobacco use Plan: Patient was not on any antiplatelets at home. Dr. Rea started the patient on aspirin 81 mg and Plavix 75mg daily. Duration of dual antiplatelet medication as per vascular surgery. Continue Lipitor 80mg daily since can help stabilize carotid plaque. Patient had undergone left carotid endarterectomy, today on 01/30/2024. No new focal symptoms. Every 4 hours neurochecks Cardiac monitoring Consulted PT OT and SENIOR RECEPTIONIST Will defer the rest of the medical management to primary and other specialist For DVT prophylaxis: On subcu heparin 5000 units every 12 hours Neurologically clear, when cleared by vascular surgery.
[2024-01-31] MEDS: hydroCHLOROthiazide 12.5 MG CAP PO SCH (08:31)
[2024-01-31] MEDS: NON FORMULARY DRUG (Linaclotide [Linzess] 145 MCG Capsule) PO SCH (08:32)
--- NOTE | 2024-01-31 08:54 | P.PN ---
Subjective Progress Note Date: 01/31/24 Principal diagnosis: Carotid stenosis Patient seen and examined today as a follow-up in the ICU. She is postop day #1 for left carotid endarterectomy. Apparently patient required some nitro through the night. She is been a little tachycardic as well, for which cardiology is f romeroing. She denies any focal deficits. States she does have a little discomfort in her throat with swallowing likely from ET tube, however no difficulty in swallowing. Tolerating a regular diet. She has been up and ambulating this morning. She is afebrile. Today's labs WBC of 15.3 hemoglobin 10.4 platelet count 353,000 sodium 129 potassium 4.6 BUN 19 creatinine 0.7 Objective - Vital Signs Vital signs: Vital Signs Temp 98.6 F 01/31/24 04:00 Pulse 111 H 01/31/24 07:00 Resp 16 01/31/24 07:00 BP 169/92 01/31/24 07:00 Pulse Ox 99 01/31/24 07:00 FiO2 Intake & Output 01/30/24 01/31/24 01/31/24 18:59 06:59 18:59 Intake Total 2092 234.825 Output Total 2830 985 Balance -738 -750.175 Weight 54.3 kg Intake: IV 2092 220 Sodium Chloride 0.9% 1, 40 220 000 ml @ 20 mls/hr IV . Q24H [facility] Rx#:[id number] Intake, IV Titration 14.825 Amount Nitroglycerin-D5w Pmx 50 14.825 mg In Dextrose/Water 1 250ml.bag @ 5 MCG/MIN 1.5 mls/hr IV .Q24H [facility] Rx#: [id number] Oral 0 Output: Urine 2650 985 Estimated Blood Loss 180 Other: Voiding Method Toilet Indwelling Catheter # Voids 1 ABP, PAP, CO, CI - Last Documented Arterial Blood Pressure 138/98 - Exam General appearance: The patient is alert, oriented, appears in no acute distress. HET: Head is normocephalic and atraumatic. Pupils are equal and reactive. Neck: Supple. Left-sided neck with dressing clean dry and intact. Ecchymosis surrounding incision left-sided neck wrapping around to front, soft, no hematoma noted. Heart: Regular. Tachycardic. Lungs: Equal expansion, normal respiratory effort. Abdomen: Soft, nondistended. Extremities: Normal skin color and turgor. Palpable radial and DP pulses. Neurological: No focal deficits. Strength and sensation are grossly intact. - Labs CBC & Chem 7: 01/31/24 04:47 01/31/24 04:47 Labs: Abnormal Lab Results - Last 24 Hours (Table) 01/30/24 01/30/24 01/30/24 Range/Units 07:26 07:26 10:00 WBC (3.8-10.6) k/uL RBC (3.80-5.40) m/uL Hgb (11.4-16.0) gm/dL Hct (34.0-46.0) % Neutrophils # (1.3-7.7) k/uL Eosinophils # 0.8 H (0-0.7) k/uL Sodium 133 L (137-145) mmol/L Chloride 95 L (98-107) mmol/L Carbon Dioxide 32 H (22-30) mmol/L BUN 24 H (7-17) mg/dL Creatinine 1.05 H (0.52-1.04) mg/dL Glucose (74-99) mg/dL POC Glucose (mg/dL) (70-110) mg/dL Urine Appearance Cloudy H (Clear) Urine Protein Trace H (Negative) Urine Blood Trace H (Negative) Urine Nitrite Positive H (Negative) Ur Leukocyte Esterase Large H (Negative) Urine WBC >182 H (0-5) /hpf Urine WBC Clumps Many H (None) /hpf Urine Bacteria Many H (None) /hpf 01/30/24 01/30/24 01/31/24 Range/Units 17:25 19:38 04:47 WBC 15.3 H (3.8-10.6) k/uL RBC 3.34 L (3.80-5.40) m/uL Hgb 10.4 L (11.4-16.0) gm/dL Hct 29.7 L (34.0-46.0) % Neutrophils # 12.7 H (1.3-7.7) k/uL Eosinophils # (0-0.7) k/uL Sodium (137-145) mmol/L Chloride (98-107) mmol/L Carbon Dioxide (22-30) mmol/L BUN (7-17) mg/dL Creatinine (0.52-1.04) mg/dL Glucose (74-99) mg/dL POC Glucose (mg/dL) 215 H 159 H (70-110) mg/dL Urine Appearance (Clear) Urine Protein (Negative) Urine Blood (Negative) Urine Nitrite (Negative) Ur Leukocyte Esterase (Negative) Urine WBC (0-5) /hpf Urine WBC Clumps (None) /hpf Urine Bacteria (None) /hpf 01/31/24 01/31/24 Range/Units 04:47 06:05 WBC (3.8-10.6) k/uL RBC (3.80-5.40) m/uL Hgb (11.4-16.0) gm/dL Hct (34.0-46.0) % Neutrophils # (1.3-7.7) k/uL Eosinophils # (0-0.7) k/uL Sodium 129 L (137-145) mmol/L Chloride 97 L (98-107) mmol/L Carbon Dioxide (22-30) mmol/L BUN 19 H (7-17) mg/dL Creatinine (0.52-1.04) mg/dL Glucose 110 H (74-99) mg/dL POC Glucose (mg/dL) 113 H (70-110) mg/dL Urine Appearance (Clear) Urine Protein (Negative) Urine Blood (Negative) Urine Nitrite (Negative) Ur Leukocyte Esterase (Negative) Urine WBC (0-5) /hpf Urine WBC Clumps (None) /hpf Urine Bacteria (None) /hpf Assessment and Plan Assessment: 1. Hemodynamically severe and symptomatic left ICA stenosis status post left carotid endarterectomy with patch angioplasty 2. Acute/subacute ischemia involving small region within the left frontoparietal region 3. Left facial droop and slurred speech, resolved 4. Hypertension 5. Hyperlipidemia Plan: 1. Continue aspirin, Plavix and statin 2. Patient may have heart healthy diet 3. Activity as tolerated 4. Continue to titrate down on nitroglycerine 5. Cardiology consult for tachycardia, patient has loop recorder 6. Continue with recommendations from neurology 7. Rest of medical management per primary medical team Thank you for this consultation, we will continue to follow. The impression and plan of care has been dictated as directed. Dr. Pa I performed a history and examination of this patient, discussed the same with the dictator. I agree with the dictator's note ,documented as a scribe. Any additional findings or plans will be noted.
[2024-01-31 12:23] LABS: Glucose,Whole Blood 130 mg/dL (70-110)
[2024-01-31] MEDS: SODIUM CHLORIDE 0.9% 1,000 ML IV SCH (13:14)
--- NOTE | 2024-01-31 13:49 | P.PN ---
Subjective Progress Note Date: 01/31/24 78-year-old white female who had episode of slurred speech last night continuing into the evening when her noticed she denied any weakness to her upper extremities or lower extremities she denies any loss of consciousness or dizziness she denies any headache she was noted to have a left facial droop patient denies any previous history of cerebrovascular accident. She denies any alcohol or drugs. She denies any fever. She was subsequently brought to the [facility] emergency department and found to have acute CVA and was subsequently admitted. --symptoms improving, minimal slurred speech .brain MRI reported acute/subacute ischemia involving small region within the left frontoparietal region. Progression of nonspecific white matter changes from prior MRI in 2017 likely secondary to small vessel ischemic disease. Carotid Doppler suggested severe proximal left ICA stenosis, unable to visualize right vertebral artery. Vascular surgery consulted. CTA of head and neck pending. Echo reported normal LV function, mild concentric LVH, none specific thickening of mitral valve leaflets noted, bubble study somewhat suboptimal, no shunt based on available images. 01/28/2024 Patient is seen and evaluated with family at bedside; reports worsening chronic back pain Vital signs are reviewed and remained stable Lab review shows a WBC of 10.7, hemoglobin of 12.8 and platelet count of 284, sodium 136, potassium 3.7, BUNs/creatinine of 20/0.75 -Cardiology recommending to increase losartan to 100 mg daily; patient presented with hypertensive urgency; blood pressure remains elevated Left ICA stenosis with acute or subacute acute ischemic stroke on MRI; for possible carotid endarterectomy on Tuesday01/29/2024 Patient seen and evaluated resting in bed; has been placed on Ultram for back pain; reports adequate pain control Signs are reviewed and stable with temperature of 98.1, pulse 96, respirations 16 and blood pressure 143/67 WBC 13.2, hemoglobin 13.1, hematocrit 39.0, platelets 311, sodium 133, potassium 3.4, BUN 15, creatinine 0.70 -- Cardiology on board and recommending to continue with current therapy -- Possible carotid endarterectomy tomorrow for left ICA stenosis with acute/subacute ischemic stroke 01/30/2024 Patient is evaluated today will be going for left carotid endartectomy today. Status post loop recorder. BUN 24, creatinine 1.05, sodium 133. 01/31/2024 Is evaluated today in the intensive care unit postoperative day #1 left carotid endarterectomy secondary to severe left ICA stenosis. Patient has been hypertensive did require nitro overnight she is also tachycardic today up into the 130s with ambulation. Pending further recommendations from cardiology for this. Patient continues on losartan at this time. Her main complaint today is a sore throat. Urinalysis was abnormal with urine culture showing gram-negative bacilli patient is not complaining of any dysuria at this time will monitor off antibiotics. White blood cell count 15.3, hgb 10.4, Sodium 129, BUN 19, creatinine 0.72. Review of Systems Constitutional: Denied any fatigue denied any fever. Cardio vascular: denied any chest pain, palpitations Gastrointestinal: denied any nausea, vomiting, diarrhea Pulmonary: Denied any shortness of breath cough Neurologic denied any new focal deficits All inpatient medications were reviewed and appropriate changes in these medications as dictated in the interval history and assessment and plan. PHYSICAL EXAMINATION: GENERAL: The patient is alert and oriented x3, not in any acute distress. Well developed, well nourished. HEENT: Pupils are round and equally reacting to light. EOMI. No scleral icterus. No conjunctival pallor. Normocephalic, atraumatic. No pharyngeal erythema. No thyromegaly. CARDIOVASCULAR: S1 and S2 present. No murmurs, rubs, or gallops. PULMONARY: Chest is clear to auscultation, no wheezing or crackles. ABDOMEN: Soft, nontender, nondistended, normoactive bowel sounds. No palpable organomegaly. MUSCULOSKELETAL: No joint swelling or deformity. EXTREMITIES: No cyanosis, clubbing, or pedal edema. NEUROLOGICAL: Gross neurological examination did not reveal any focal deficits. SKIN: Overweight no rashes. Bruising and swelling along the left jaw/neck. Dressing intact. Assessment and Plan Acute/subacute ischemic stroke on MRI Left ICA stenosis post left carotid endarterectomy Hypertensive urgency, better controlled Sinus tachycardia Asymptomatic bacteriruea Hyponatremic hypovolemic Hyperlipidemia Aortic valve insufficiency Remote tobacco use and dependence Plan: Continue to monitor the patient in the ICU Continue current cardiac medications: Aspirin 81 mg daily Lipitor 80 mg daily, Plavix 75 mg daily, losartan 50 mg daily. Patient has been started on aspirin and Plavix by neurology Patient is status post loop recorder implantation Continues on cardiac telemetry Start normal saline at 75 mls/.hr and repeat blood work in the AM Pending final blood cultures and monitor the patient off antibiotics at this time The impression and plan of care has been dictated by Ning Frazier, Nurse Practitioner as directed. Dr. Rhonda MD I have performed a history and physical examination and medical decision making of this patient, discussed the same with the dictator, and agree with the dictators assessment and plan as written, documented as a scribe. Based on total visit time, I have performed more than 50% of this visit. Objective - Vital Signs Vital signs: Vital Signs Temp 98.6 F 01/31/24 04:00 Pulse 111 H 01/31/24 07:00 Resp 16 01/31/24 07:00 BP 169/92 01/31/24 07:00 Pulse Ox 99 01/31/24 07:00 FiO2 Intake & Output 01/30/24 01/31/24 01/31/24 18:59 06:59 18:59 Intake Total 2092 234.825 Output Total 2830 985 Balance -738 -750.175 Weight 54.3 kg Intake: IV 2091 220 Sodium Chloride 0.9% 1, 40 220 000 ml @ 20 mls/hr IV . Q24H AKIRA Rx#:[id number] Intake, IV Titration 14.825 Amount Nitroglycerin-D5w Pmx 50 14.825 mg In Dextrose/Water 1 250ml.bag @ 5 MCG/MIN 1.5 mls/hr IV .Q24H AKIRA Rx#: [id number] Oral 0 Output: Urine 2650 985 Estimated Blood Loss 180 Other: Voiding Method Toilet Indwelling Catheter # Voids 1 ABP, PAP, CO, CI - Last Documented Arterial Blood Pressure 138/98 - Labs CBC & Chem 7: 01/31/24 04:47 01/31/24 04:47 Labs: Abnormal Lab Results - Last 24 Hours (Table) 01/30/24 01/30/24 01/30/24 Range/Units 10:00 17:25 19:38 WBC (3.8-10.6) k/uL RBC (3.80-5.40) m/uL Hgb (11.4-16.0) gm/dL Hct (34.0-46.0) % Neutrophils # (1.3-7.7) k/uL Sodium (137-145) mmol/L Chloride (98-107) mmol/L BUN (7-17) mg/dL Glucose (74-99) mg/dL POC Glucose (mg/dL) 215 H 159 H (70-110) mg/dL Urine Appearance Cloudy H (Clear) Urine Protein Trace H (Negative) Urine Blood Trace H (Negative) Urine Nitrite Positive H (Negative) Ur Leukocyte Esterase Large H (Negative) Urine WBC >182 H (0-5) /hpf Urine WBC Clumps Many H (None) /hpf Urine Bacteria Many H (None) /hpf 01/31/24 01/31/24 01/31/24 Range/Units 04:47 04:47 06:05 WBC 15.3 H (3.8-10.6) k/uL RBC 3.34 L (3.80-5.40) m/uL Hgb 10.4 L (11.4-16.0) gm/dL Hct 29.7 L (34.0-46.0) % Neutrophils # 12.7 H (1.3-7.7) k/uL Sodium 129 L (137-145) mmol/L Chloride 97 L (98-107) mmol/L BUN 19 H (7-17) mg/dL Glucose 110 H (74-99) mg/dL POC Glucose (mg/dL) 113 H (70-110) mg/dL Urine Appearance (Clear) Urine Protein (Negative) Urine Blood (Negative) Urine Nitrite (Negative) Ur Leukocyte Esterase (Negative) Urine WBC (0-5) /hpf Urine WBC Clumps (None) /hpf Urine Bacteria (None) /hpf Assessment and Plan Time with Patient: Less than 30
[2024-01-31 16:39] LABS: Glucose,Whole Blood 137 mg/dL (70-110)
[2024-01-31 20:06] LABS: Glucose,Whole Blood 153 mg/dL (70-110)
--- NOTE | 2024-01-31 20:59 | P.PN ---
Subjective Progress Note Date: 01/31/24 The patient is a pleasant 78-year-old female patient with a past medical history significant for hypertension and dyslipidemia and carotid atherosclerosis who was admitted to the hospital with CVA with a CT scan of the brain showing acute/subacute stroke involving the left frontal/partial lobes. Subsequently the patient underwent left carotid endarterectomy few days ago. We seen the patient and sign off on the patient after the patient underwent loop recorder implantation to rule out paroxysmal atrial fibrillation. January 31, 2024 We requested to see the patient because of sinus tachycardia. Hemodynamically she continues to be stable and as a matter fact she is hypertensive with a pressure consistent with stage II hypertension. I did perform twelve-lead EKG and that showed sinus rhythm with mild sinus tachycardia. Apparently the sinus tachycardia is only with physical activities and has not exceeded 100 bpm with resting. Her heart rate has been staying below 100 bpm. She is asymptomatic with no feeling of heart racing or fluttering or dizziness or lightheadedness and no symptoms of chest pain or chest discomfort or shortness of breath at this point. The physical examination is remarkable for regular rhythm with a systolic murmur at the right and left upper sternal border with clear breathing sounds bilaterally and no edema was noted. The patient does have some ecchymosis involving the left neck after the surgery Assessment CVA appears to be acute/subacute Carotid atherosclerosis status post left carotid endarterectomy Multiple comorbid conditions including hypertension and dyslipidemia Mild sinus tachycardia only with activities Plan Continue current medical regimen at this point Monitor the heart rate for additional 24 hours The patient's resting heart rate is staying below 100 bpm Consider adding small dose of beta-adriana if she becomes tachycardic Follow-up with the patient Objective - Vital Signs Vital signs: Vital Signs Temp 98.1 F 01/31/24 20:00 Pulse 97 01/31/24 20:00 Resp 11 L 01/31/24 20:00 BP 197/99 01/31/24 20:00 Pulse Ox 98 01/31/24 20:00 FiO2 2 01/31/24 12:00 Intake & Output 01/31/24 01/31/24 02/01/24 06:59 18:59 06:59 Intake Total 234.825 889.25 150 Output Total 985 200 Balance -750.175 889.25 -50 Weight 54.3 kg Intake: IV 220 625 150 Sodium Chloride 0.9% 1, 220 625 150 000 ml @ 20 mls/hr IV . Q24H AKIRA Rx#:[id number] Intake, IV Titration 14.825 14.25 Amount Nitroglycerin-D5w Pmx 50 14.825 14.25 mg In Dextrose/Water 1 250ml.bag @ 5 MCG/MIN 1.5 mls/hr IV .Q24H AKIRA Rx#: [id number] Oral 250 Output: Urine 985 200 Other: Voiding Method Indwelling Catheter Bedside Commode Bedside Commode # Voids 1 1 ABP, PAP, CO, CI - Last Documented Arterial Blood Pressure 138/98 - Labs CBC & Chem 7: 01/31/24 04:47 01/31/24 04:47 Labs: Abnormal Lab Results - Last 24 Hours (Table) 01/31/24 01/31/24 01/31/24 Range/Units 04:47 04:47 06:05 WBC 15.3 H (3.8-10.6) k/uL RBC 3.34 L (3.80-5.40) m/uL Hgb 10.4 L (11.4-16.0) gm/dL Hct 29.7 L (34.0-46.0) % Neutrophils # 12.7 H (1.3-7.7) k/uL Sodium 129 L (137-145) mmol/L Chloride 97 L (98-107) mmol/L BUN 19 H (7-17) mg/dL Glucose 110 H (74-99) mg/dL POC Glucose (mg/dL) 113 H (70-110) mg/dL 01/31/24 01/31/24 01/31/24 Range/Units 12:21 16:37 20:04 WBC (3.8-10.6) k/uL RBC (3.80-5.40) m/uL Hgb (11.4-16.0) gm/dL Hct (34.0-46.0) % Neutrophils # (1.3-7.7) k/uL Sodium (137-145) mmol/L Chloride (98-107) mmol/L BUN (7-17) mg/dL Glucose (74-99) mg/dL POC Glucose (mg/dL) 130 H 137 H 153 H (70-110) mg/dL Microbiology - Last 24 Hours (Table) 01/30/24 10:00 Urine Culture - Preliminary Urine,Voided Gram Neg Bacilli
[2024-02-01 06:43] LABS: HCT 30.6 % (34.0-46.0); HGB 10.5 gm/dL (11.4-16.0); MCH 31.1 pg (25.0-35.0); MCHC 34.5 g/dL (31.0-37.0); MCV 90.3 fL (80.0-100.0); Mean Platelet Volume 7.5; Platelet Count 322 k/uL (150-450); RBC 3.39 m/uL (3.80-5.40); RDW 12.6 % (11.5-15.5); WBC 16.9 k/uL (3.8-10.6)
[2024-02-01 06:54] LABS: Glucose,Whole Blood 131 mg/dL (70-110)
[2024-02-01 06:59] LABS: African American GFR (CKD) >90 (>60 ml/min/1.73 sqM); Anion Gap 9 mmol/L; Blood Urea Nitrogen 11 mg/dL (7-17); Calcium 9.4 mg/dL (8.4-10.2); Carbon Dioxide 29 mmol/L (22-30); Chloride 89 mmol/L (98-107); Glucose 112 mg/dL (74-99); Magnesium 1.1 mg/dL (1.6-2.3); Non-African American GFR(CKD) 89 (>60 ml/min/1.73 sqM); Potassium 3.7 mmol/L (3.5-5.1); Sodium 127 mmol/L (137-145)
[2024-02-01] MEDS ORDERED: Potassium Replacement Protocol 1 EACH MISC MISCELLANE PRN (07:29)
[2024-02-01] MEDS ORDERED: Magnesium Replacement Protocol 1 EACH MISC MISCELLANE PRN (07:30)
--- NOTE | 2024-02-01 07:51 | P.PN ---
Subjective Progress Note Date: 02/01/24 The patient is a pleasant 78-year-old female patient with a past medical history significant for hypertension and dyslipidemia and carotid atherosclerosis who was admitted to the hospital with CVA with a CT scan of the brain showing acute/subacute stroke involving the left frontal/partial lobes. Subsequently the patient underwent left carotid endarterectomy few days ago. We seen the patient and sign off on the patient after the patient underwent loop recorder implantation to rule out paroxysmal atrial fibrillation. January 31, 2024 We requested to see the patient because of sinus tachycardia. Hemodynamically she continues to be stable and as a matter fact she is hypertensive with a pressure consistent with stage II hypertension. I did perform twelve-lead EKG and that showed sinus rhythm with mild sinus tachycardia. Apparently the sinus tachycardia is only with physical activities and has not exceeded 100 bpm with resting. Her heart rate has been staying below 100 bpm. She is asymptomatic with no feeling of heart racing or fluttering or dizziness or lightheadedness and no symptoms of chest pain or chest discomfort or shortness of breath at this point. The physical examination is remarkable for regular rhythm with a systolic murmur at the right and left upper sternal border with clear breathing sounds bilaterally and no edema was noted. The patient does have some ecchymosis involving the left neck after the surgery February 01, 2024 The patient was seen and evaluated this morning. She is asymptomatic and hemodynamically stable besides mild tachycardia with activities. At this point I would continue the current medical regimen and avoid blunting her heart rate unless the patient need to be treated for the hypertension then I would consider starting the patient on small dose of beta-adriana for both the blood pressure and the heart rate. Otherwise the patient can be transferred out of the ICU. The examination is remarkable for mild sinus tachycardia with clear breathing sounds bilaterally and no edema was noted Assessment CVA appears to be acute/subacute Carotid atherosclerosis status post left carotid endarterectomy Multiple comorbid conditions including hypertension and dyslipidemia Mild sinus tachycardia only with activities Plan Continue current medical regimen at this point Monitor the heart rate for additional 24 hours The patient's resting heart rate is staying below 100 bpm Consider adding small dose of beta-adriana if she becomes tachycardic and if the pressure need to be treated Follow-up with the patient Objective - Vital Signs Vital signs: Vital Signs Temp 98.1 F 02/01/24 04:00 Pulse 105 H 02/01/24 06:00 Resp 19 02/01/24 06:00 BP 150/84 02/01/24 06:00 Pulse Ox 96 02/01/24 06:00 FiO2 2 01/31/24 12:00 Intake & Output 01/31/24 02/01/24 02/01/24 18:59 06:59 18:59 Intake Total 889.25 900 Output Total 1000 Balance 889.25 -100 Weight 50.8 kg Intake: IV 625 900 Sodium Chloride 0.9% 1, 625 900 000 ml @ 20 mls/hr IV . Q24H AKIRA Rx#:[id number] Intake, IV Titration 14.25 Amount Nitroglycerin-D5w Pmx 50 14.25 mg In Dextrose/Water 1 250ml.bag @ 5 MCG/MIN 1.5 mls/hr IV .Q24H AKIRA Rx#: [id number] Oral 250 Output: Urine 1000 Other: Voiding Method Bedside Commode Bedside Commode # Voids 1 3 ABP, PAP, CO, CI - Last Documented Arterial Blood Pressure 138/98 - Labs CBC & Chem 7: 02/01/24 05:33 02/01/24 05:33 Labs: Abnormal Lab Results - Last 24 Hours (Table) 01/31/24 01/31/24 01/31/24 Range/Units 12:21 16:37 20:04 WBC (3.8-10.6) k/uL RBC (3.80-5.40) m/uL Hgb (11.4-16.0) gm/dL Hct (34.0-46.0) % Sodium (137-145) mmol/L Chloride (98-107) mmol/L Glucose (74-99) mg/dL POC Glucose (mg/dL) 130 H 137 H 153 H (70-110) mg/dL Magnesium (1.6-2.3) mg/dL 02/01/24 02/01/24 02/01/24 Range/Units 05:33 05:33 06:52 WBC 16.9 H (3.8-10.6) k/uL RBC 3.39 L (3.80-5.40) m/uL Hgb 10.5 L (11.4-16.0) gm/dL Hct 30.6 L (34.0-46.0) % Sodium 127 L (137-145) mmol/L Chloride 89 L (98-107) mmol/L Glucose 112 H (74-99) mg/dL POC Glucose (mg/dL) 131 H (70-110) mg/dL Magnesium 1.1 L (1.6-2.3) mg/dL Microbiology - Last 24 Hours (Table) 01/30/24 10:00 Urine Culture - Preliminary Urine,Voided Gram Neg Bacilli
[2024-02-01] MEDS: MAGNESIUM SULFATE-D5W PMX 1 GM in DEXTROSE/WATER 1 100ML.BAG IVPB SCH (09:39)
[2024-02-01] MEDS: POTASSIUM CHLORIDE ER 20 MEQ TAB.ER PO SCH (09:39)
--- NOTE | 2024-02-01 10:38 | P.PN ---
Subjective Progress Note Date: 02/01/24 Principal diagnosis: Carotid stenosis Patient is seen and examined today as a follow-up. She is postop day #2 for left carotid endarterectomy. She denies any focal deficits. Denies any difficulty with swallowing. She has been tachycardic especially with exertion and cardiology is following. She denies any chest pain, shortness of breath, abdominal pain, nausea or vomiting. Objective - Vital Signs Vital signs: Vital Signs Temp 98.1 F 02/01/24 04:00 Pulse 105 H 02/01/24 06:00 Resp 19 02/01/24 06:00 BP 150/84 02/01/24 06:00 Pulse Ox 96 02/01/24 06:00 FiO2 2 01/31/24 12:00 Intake & Output 01/31/24 02/01/24 02/01/24 18:59 06:59 18:59 Intake Total 889.25 900 225 Output Total 1000 Balance 889.25 -100 225 Weight 50.8 kg Intake: IV 625 900 75 Sodium Chloride 0.9% 1, 625 900 75 000 ml @ 20 mls/hr IV . Q24H AKIRA Rx#:[id number] Intake, IV Titration 14.25 Amount Nitroglycerin-D5w Pmx 50 14.25 mg In Dextrose/Water 1 250ml.bag @ 5 MCG/MIN 1.5 mls/hr IV .Q24H AKIRA Rx#: [id number] Oral 250 150 Output: Urine 1000 Other: Voiding Method Bedside Commode Bedside Commode # Voids 1 3 1 ABP, PAP, CO, CI - Last Documented Arterial Blood Pressure 138/98 - Exam General appearance: The patient is alert, oriented, appears in no acute distress . HET: Head is normocephalic and atraumatic. Pupils are equal and reactive. Neck: Supple. Left-side of neck incision well-approximated with surrounding ecchymosis. Heart: Regular. Tachycardic. Lungs: Equal expansion, normal respiratory effort. Abdomen: Soft, nondistended. Extremities: Normal skin color and turgor. Palpable radial and DP pulses. Neurological: No focal deficits. Strength and sensation are grossly intact. - Labs CBC & Chem 7: 02/01/24 05:33 02/01/24 05:33 Labs: Abnormal Lab Results - Last 24 Hours (Table) 01/31/24 01/31/2401/30/24 Range/Units 12:21 16:37 20:04 WBC (3.8-10.6) k/uL RBC (3.80-5.40) m/uL Hgb (11.4-16.0) gm/dL Hct (34.0-46.0) % Sodium (137-145) mmol/L Chloride (98-107) mmol/L Glucose (74-99) mg/dL POC Glucose (mg/dL) 130 H 137 H 153 H (70-110) mg/dL Magnesium (1.6-2.3) mg/dL 02/01/24 02/01/24 02/01/24 Range/Units 05:33 05:33 06:52 WBC 16.9 H (3.8-10.6) k/uL RBC 3.39 L (3.80-5.40) m/uL Hgb 10.5 L (11.4-16.0) gm/dL Hct 30.6 L (34.0-46.0) % Sodium 127 L (137-145) mmol/L Chloride 89 L (98-107) mmol/L Glucose 112 H (74-99) mg/dL POC Glucose (mg/dL) 131 H (70-110) mg/dL Magnesium 1.1 L (1.6-2.3) mg/dL Microbiology - Last 24 Hours (Table) 01/30/24 10:00 Urine Culture - Preliminary Urine,Voided Gram Neg Bacilli Assessment and Plan Assessment: 1. Hemodynamically severe and symptomatic left ICA stenosis status post left carotid endarterectomy with patch angioplasty 2. Acute/subacute ischemia involving small region within the left frontoparietal region 3. Left facial droop and slurred speech, resolved 4. Hypertension 5. Hyperlipidemia Plan: 1. Continue aspirin, Plavix and statin 2. Patient may have heart healthy diet 3. Activity as tolerated 4. Continue with recommendations from cardiology 5. Patient may be downgraded to 3 S. 6. Rest of medical management per primary medical team 7. Patient is cleared from vascular surgery for discharge. Discharge instructions reviewed with patient Thank you for this consultation, we will continue to follow. The impression and plan of care has been dictated as directed. Dr. Faulkner I performed a history and examination of this patient, discussed the same with the dictator. I agree with the dictator's note ,documented as a scribe. Any additional findings or plans will be noted.
[2024-02-01 11:46] LABS: Glucose,Whole Blood 140 mg/dL (70-110)
[2024-02-01] MEDS: LEVOFLOXACIN 500MG-D5W PMX 500 MG in DEXTROSE/WATER 1 100ML.BAG IVPB SCH (14:19)
[2024-02-01 17:18] LABS: Glucose,Whole Blood 151 mg/dL (70-110)
[2024-02-01 19:25] LABS: Glucose,Whole Blood 176 mg/dL (70-110)
[2024-02-01] MEDS: diphenhydrAMINE 50 MG/ML 1 ML VIAL IVP STA (19:45)
[2024-02-01] MEDS: FAMOTIDINE 20 MG/2 ML VIAL IV STA (19:45)
--- NOTE | 2024-02-01 19:59 | CT ---
EXAMINATION TYPE: CODE STROKE: CT brain wo contr DATE OF EXAM: 01/23/2024 COMPARISON: None INDICATION: Slurred speech left side facial droop, drooling. DLP: 1055.2 mGycm, Automated exposure control for dose reduction was used. CONTRAST: None CT of the brain is performed utilizing 3 mm thick sections through the posterior fossa and 3 mm thick sections through the remaining calvarium. Study is performed within 24 hours of arrival to the hosp ital. No abnormal hyperdensity is present to suggest an acute intracranial hemorrhage. No mass lesion is evident. No acute infarcts are evident. No suspicious abnormality to account for left facial droop evident on CT. Consider follow-up with MRI. Periventricular white matter hypodensity is present. The pattern ester ears similar to the comparison study. No new hypodensity identified. Findings can be compatible with chronic white matter ischemic changes. Ventricles and sulci are mildly prominent for the patient age. Paranasal sinuses and mastoid air cells within the [id number] are clear. IMPRESSION: 1. No acute intracranial process radiographically apparent. Follow up MRI can be performed as clini elsa indicated. 2. Atrophy with chronic white matter ischemic-type changes similar to prior study. [facility], Workstation: [id number], 02/01/2024 7:56 PM
[2024-02-01] MEDS: methylPREDNISolone SOD SUCCI 125 MG/2 ML VIAL IV STA (20:01)
--- NOTE | 2024-02-01 20:29 | CT ---
EXAMINATION TYPE: CODE STROKE: CTA head neck DATE OF EXAM: 02/01/2024 HISTORY: Slurred speech left side facial droop, drooling. COMPARISON: 01/26/2024 CT DLP: 365.9 mGycm. Automated Exposure Control for Dose Reduction was Utilized. TECHNIQUE: CTA scan of the neck is performed with IV Contrast, patient injected with 65ml mL of Isov ue 370, axial images are obtained, coronal and sagittal reformatted images are reviewed. Three-D magdy nstructed images are created on an independent workstation and reviewed. Source images are reviewed. FINDINGS: Carotid/Vascular Structures: There is a 3 vessel arch. Great vessels are tortuous. Common carotid arteries bifurcate into internal and external carotid arteries without significant nicky w limiting stenosis. There may be a web within the mid left internal carotid artery is not well-visua lized in the axial plane. A kink is within the distal right internal carotid artery. Vertebral arteries are codominant. Internal carotid arteries and vertebral arteries are patent to the skull base. Cervical of [place]: Vertebral basilar system appears normal. Posterior cerebral vasculature is unrema rkable. Internal carotid arteries bifurcate normally into A1 and M1 segments. A2 segments are normal. The anterior communicating artery is patent. The right posterior communicating artery is patent. The left posterior communicating artery is absent. Other: There is a serpiginous soft tissue density within the right upper posterior lung field on the transverse dimension measuring approximately 0.7 cm. Additional workup is recommended. This could be inspissated mucus within a bronchus. Neoplasm should be considered. IMPRESSION: 1. No flow-limiting stenosis bilateral carotid bifurcations. There may be a web within the mid left i nternal carotid artery. 2. Normal [place] of [place]. 3. Soft tissue density right upper lung field. Additional workup is recommended. NASCET criteria was used in interpretation of this exam? [facility], , 02/01/2024 8:26 PM
--- NOTE | 2024-02-01 20:55 | P.PN ---
Subjective Progress Note Date: 02/01/24 78-year-old white female who had episode of slurred speech last night continuing into the evening when her noticed she denied any weakness to her upper extremities or lower extremities she denies any loss of consciousness or dizziness she denies any headache she was noted to have a left facial droop patient denies any previous history of cerebrovascular accident. She denies any alcohol or drugs. She denies any fever. She was subsequently brought to the [facility] emergency department and found to have acute CVA and was subsequently admitted. --symptoms improving, minimal slurred speech .brain MRI reported acute/subacute ischemia involving small region within the left frontoparietal region. Progression of nonspecific white matter changes from prior MRI in 2017 likely secondary to small vessel ischemic disease. Carotid Doppler suggested severe proximal left ICA stenosis, unable to visualize right vertebral artery. Vascular surgery consulted. CTA of head and neck pending. Echo reported normal LV function, mild concentric LVH, none specific thickening of mitral valve leaflets noted, bubble study somewhat suboptimal, no shunt based on available images. 01/28/2024 Patient is seen and evaluated with family at bedside; reports worsening chronic back pain Vital signs are reviewed and remained stable Lab review shows a WBC of 10.7, hemoglobin of 12.8 and platelet count of 284, sodium 136, potassium 3.7, BUNs/creatinine of 20/0.75 -Cardiology recommending to increase losartan to 100 mg daily; patient presented with hypertensive urgency; blood pressure remains elevated Left ICA stenosis with acute or subacute acute ischemic stroke on MRI; for possible carotid endarterectomy on Tuesday01/29/2024 Patient seen and evaluated resting in bed; has been placed on Ultram for back pain; reports adequate pain control Signs are reviewed and stable with temperature of 98.1, pulse 96, respirations 16 and blood pressure 143/67 WBC 13.2, hemoglobin 13.1, hematocrit 39.0, platelets 311, sodium 133, potassium 3.4, BUN 15, creatinine 0.70 -- Cardiology on board and recommending to continue with current therapy -- Possible carotid endarterectomy tomorrow for left ICA stenosis with acute/subacute ischemic stroke 01/30/2024 Patient is evaluated today will be going for left carotid endartectomy today. Status post loop recorder. BUN 24, creatinine 1.05, sodium 133. 01/31/2024 Is evaluated today in the intensive care unit postoperative day #1 left carotid endarterectomy secondary to severe left ICA stenosis. Patient has been hypertensive did require nitro overnight she is also tachycardic today up into the 130s with ambulation. Pending further recommendations from cardiology for this. Patient continues on losartan at this time. Her main complaint today is a sore throat. Urinalysis was abnormal with urine culture showing gram-negative bacilli patient is not complaining of any dysuria at this time will monitor off antibiotics. White blood cell count 15.3, hgb 10.4, Sodium 129, BUN 19, creatinine 0.72. 02/01/2024 Patient is evaluated toady in the ICU postoperative day #2 left carotid endartectomy. Sodium 127 today, fluids will be stopped and hydrochlorothiazide will be held. Remains on losartan and will be started on low dose beta adriana. Urine culture showing gram negative bacilli. Patient has been started on IV levofloxacin. Review of Systems Constitutional: Denied any fatigue denied any fever. Cardio vascular: denied any chest pain, palpitations Gastrointestinal: denied any nausea, vomiting, diarrhea Pulmonary: Denied any shortness of breath cough Neurologic denied any new focal deficits All inpatient medications were reviewed and appropriate changes in these medications as dictated in the interval history and assessment and plan. PHYSICAL EXAMINATION: GENERAL: The patient is alert and oriented x3, not in any acute distress. Well developed, well nourished. HEENT: Pupils are round and equally reacting to light. EOMI. No scleral icterus. No conjunctival pallor. Normocephalic, atraumatic. No pharyngeal erythema. No thyromegaly. CARDIOVASCULAR: S1 and S2 present. No murmurs, rubs, or gallops. PULMONARY: Chest is clear to auscultation, no wheezing or crackles. ABDOMEN: Soft, nontender, nondistended, normoactive bowel sounds. No palpable organomegaly. MUSCULOSKELETAL: No joint swelling or deformity. EXTREMITIES: No cyanosis, clubbing, or pedal edema. NEUROLOGICAL: Gross neurological examination did not reveal any focal deficits. SKIN: Overweight no rashes. Bruising and swelling along the left jaw/neck. Dressing intact. Assessment and Plan Acute/subacute ischemic stroke on MRI Left ICA stenosis post left carotid endarterectomy Hypertensive urgency, better controlled Sinus tachycardic Acute urinary tract infection Hyponatremic hypovolemic Hyperlipidemia Aortic valve insufficiency Remote tobacco use and dependence NO CODE Plan: Patient pending bed on the step down unit. Continue current cardiac medications: Aspirin 81 mg daily Lipitor 80 mg daily, Plavix 75 mg daily, losartan 50 mg daily. Patient has been started on metoprolol 25 mg BID. Patient is status post loop recorder implantation Stop normal saline and hold hydrochlorothiazide. Sodium level 127 today. Repeat blood work in the morning. Pending final urine culture, patient has been started on IV levofloxacin. PT/OT consultation. The impression and plan of care has been dictated by Ning Frazier, Nurse Practitioner as directed. Dr. Rhonda MD I have performed a history and physical examination and medical decision making of this patient, discussed the same with the dictator, and agree with the dictators assessment and plan as written, documented as a scribe. Based on total visit time, I have performed more than 50% of this visit. Objective - Vital Signs Vital signs: Vital Signs Temp 98.9 F 02/01/24 08:00 Pulse 97 02/01/24 16:00 Resp 13 02/01/24 16:00 BP 145/69 02/01/24 16:00 Pulse Ox 95 02/01/24 11:00 FiO2 2 01/31/24 12:00 Intake & Output 02/01/24 02/01/24 02/02/24 06:59 18:59 06:59 Intake Total 900 900 Output Total 1000 Balance -100 900 Weight 50.8 kg Intake: IV 900 300 Sodium Chloride 0.9% 1, 900 300 000 ml @ 20 mls/hr IV . Q24H AKIRA Rx#:[id number] Intake, IV Titration 300 Amount Magnesium Sulfate-D5w Pmx 300 1 gm In Dextrose/Water 1 100ml.bag @ 100 mls/hr IVPB Q1H AKIRA Rx#: [id number] Oral 300 Output: Urine 1000 Other: Voiding Method Bedside Commode Bedside Commode # Voids 3 4 ABP, PAP, CO, CI - Last Documented Arterial Blood Pressure 138/98 - Labs CBC & Chem 7: 02/01/24 05:33 02/01/24 05:33 Labs: Abnormal Lab Results - Last 24 Hours (Table) 02/01/24 02/01/24 02/01/24 Range/Units 05:33 05:33 06:52 WBC 16.9 H (3.8-10.6) k/uL RBC 3.39 L (3.80-5.40) m/uL Hgb 10.5 L (11.4-16.0) gm/dL Hct 30.6 L (34.0-46.0) % Sodium 127 L (137-145) mmol/L Chloride 89 L (98-107) mmol/L Glucose 112 H (74-99) mg/dL POC Glucose (mg/dL) 131 H (70-110) mg/dL Magnesium 1.1 L (1.6-2.3) mg/dL 02/01/24 02/01/24 02/01/24 Range/Units 11:44 17:16 19:20 WBC (3.8-10.6) k/uL RBC (3.80-5.40) m/uL Hgb (11.4-16.0) gm/dL Hct (34.0-46.0) % Sodium (137-145) mmol/L Chloride (98-107) mmol/L Glucose (74-99) mg/dL POC Glucose (mg/dL) 140 H 151 H 176 H (70-110) mg/dL Magnesium (1.6-2.3) mg/dL Microbiology - Last 24 Hours (Table) 01/30/24 10:00 Urine Culture - Final Urine,Voided Escherichia coli Assessment and Plan Time with Patient: Less than 30
[2024-02-01] MEDS: METOPROLOL TARTRATE 25 MG TAB PO SCH (22:00)
[2024-02-02 06:18] LABS: Glucose,Whole Blood 173 mg/dL (70-110)
[2024-02-02 07:52] LABS: Basophils % (A) 0 %; Eosinophils % (A) 0 %; HCT 31.8 % (34.0-46.0); HGB 11.2 gm/dL (11.4-16.0); Lymphocytes # (A) 0.9 k/uL (1.0-4.8); Lymphocytes % (A) 7 %; MCH 31.6 pg (25.0-35.0); MCHC 35.3 g/dL (31.0-37.0); MCV 89.5 fL (80.0-100.0); Mean Platelet Volume 7.1; Monocytes # (A) 0.2 k/uL (0-1.0); Monocytes % (A) 2 %; Neutrophils # (A) 11.9 k/uL (1.3-7.7); Neutrophils % (A) 91 %; Platelet Count 370 k/uL (150-450); RBC 3.55 m/uL (3.80-5.40); WBC 13.1 k/uL (3.8-10.6)
[2024-02-02 08:02] LABS: African American GFR (CKD) >90 (>60 ml/min/1.73 sqM); Anion Gap 8 mmol/L; Blood Urea Nitrogen 12 mg/dL (7-17); Calcium 9.5 mg/dL (8.4-10.2); Carbon Dioxide 27 mmol/L (22-30); Chloride 87 mmol/L (98-107); Glucose 139 mg/dL (74-99); Magnesium 2.3 mg/dL (1.6-2.3); Non-African American GFR(CKD) 85 (>60 ml/min/1.73 sqM); Potassium 4.4 mmol/L (3.5-5.1); Sodium 122 mmol/L (137-145)
--- NOTE | 2024-02-02 08:28 | P.PN ---
Subjective Progress Note Date: 02/02/24 Principal diagnosis: Carotid stenosis Patient seen and examined today as a follow-up. She was transferred to selective care unit yesterday. Apparently yesterday evening she had gotten up to the bathroom with some assistance when she went to get up off of the toilet she states she feels that she may have tripped over her cords and had fallen she turned as to not hit her face and neck and ended up hitting the back of her head. Apparently she was found on the floor she could not get up and states she could not talk that she had slurred speech. She states that symptoms lasted for about 30 minutes. This morning she is alert and oriented x 4, no focal deficits. She does have a bit of more bruising along her neck and chest. She had a brain CT that showed no acute findings. CTA of head and neck with patent internal carotid arteries bilaterally. She currently denies any dizziness, shortness of breath, chest pain, abdominal pain, nausea or vomiting. States she still has some discomfort in her throat from intubation however no difficulty with swallowing. Tachycardia improved. Patient has been afebrile. WBC 13.1 hemoglobin 11.2 sodium 122 potassium 4.4 BUN 12 creatinine 0.6 magnesium 2.3 Objective - Vital Signs Vital signs: Vital Signs Temp 97.5 F L 02/02/24 04:00 Pulse 74 02/02/24 04:00 Resp 16 02/02/24 04:00 BP 138/75 02/02/24 04:00 Pulse Ox 97 02/02/24 04:00 FiO2 2 01/31/24 12:00 Intake & Output 02/01/24 02/02/24 02/02/24 18:59 06:59 18:59 Intake Total 900 Output Total 450 Balance 900 -450 Weight 49.5 kg Intake: IV 300 Sodium Chloride 0.9% 1, 300 000 ml @ 20 mls/hr IV . Q24H AKIRA Rx#:[id number] Intake, IV Titration 300 Amount Magnesium Sulfate-D5w Pmx 300 1 gm In Dextrose/Water 1 100ml.bag @ 100 mls/hr IVPB Q1H AKIRA Rx#: [id number] Oral 300 Output: Urine 450 Straight 350 Other: Voiding Method Bedside Commode Bedside Commode # Voids 4 ABP, PAP, CO, CI - Last Documented Arterial Blood Pressure 138/98 - Exam General appearance: The patient is alert, oriented, appears in no acute dist ress. HET: Head is normocephalic and atraumatic. Pupils are equal and reactive. Chest: Bruising along chest wall surrounding loop recorder incision site Neck: Supple. Left-side of neck incision well-approximated with surrounding ecchymosis, small hematoma medial aspect of incision. Bruising does wrap around patient's neck to the right side. Heart: Regular. Tachycardic. Lungs: Equal expansion, normal respiratory effort. Abdomen: Soft, nondistended. Extremities: Normal skin color and turgor. Palpable radial and DP pulses. Neurological: No focal deficits. Strength and sensation are grossly intact. - Labs CBC & Chem 7: 02/04/24 06:28 02/04/24 06:28 Labs: Abnormal Lab Results - Last 24 Hours (Table) 02/01/24 02/01/24 02/01/24 Range/Units 11:44 17:16 19:20 WBC (3.8-10.6) k/uL RBC (3.80-5.40) m/uL Hgb (11.4-16.0) gm/dL Hct (34.0-46.0) % Neutrophils # (1.3-7.7) k/uL Lymphocytes # (1.0-4.8) k/uL Sodium (137-145) mmol/L Chloride (98-107) mmol/L Glucose (74-99) mg/dL POC Glucose (mg/dL) 140 H 151 H 176 H (70-110) mg/dL 02/02/24 02/02/24 02/02/24 Range/Units 06:10 07:16 07:16 WBC 13.1 H (3.8-10.6) k/uL RBC 3.55 L (3.80-5.40) m/uL Hgb 11.2 L (11.4-16.0) gm/dL Hct 31.8 L (34.0-46.0) % Neutrophils # 11.9 H (1.3-7.7) k/uL Lymphocytes # 0.9 L (1.0-4.8) k/uL Sodium 122 L (137-145) mmol/L Chloride 87 L (98-107) mmol/L Glucose 139 H (74-99) mg/dL POC Glucose (mg/dL) 173 H (70-110) mg/dL Microbiology - Last 24 Hours (Table) 01/30/24 10:00 Urine Culture - Final Urine,Voided Escherichia coli Assessment and Plan Assessment: 1. Hemodynamically severe and symptomatic left ICA stenosis status post left carotid endarterectomy with patch angioplasty 2. Acute/subacute ischemia involving small region within the left frontoparietal region 3. Left facial droop and slurred speech, resolved 4. Hypertension 5. Hyperlipidemia 6. Hyponatremia 7. Fall 8. Urine culture positive for E. coli Plan: 1. Continue aspirin, Plavix and statin 2. Patient may have heart healthy diet 3. Activity as tolerated 4. Continue with recommendations from cardiology 5. Rest of medical management per primary medical team 6. Patient is cleared from vascular surgery once otherwise medically stable Thank you for this consultation, we will continue to follow. The impression and plan of care has been dictated as directed. Dr. Faulkner I performed a history and examination of this patient, discussed the same with the dictator. I agree with the dictator's note ,documented as a scribe. Any additional findings or plans will be noted. cta reviewed, doubt web, likely post surgical changes/angulation. No obvious dissection. continue current management, if issues would consider catheter directed angio
--- NOTE | 2024-02-02 09:42 | P.PN ---
Subjective Progress Note Date: 02/01/24 02/01/2024: Patient was seen in the ICU for a follow-up. Patient's nurse Es was present. Patient is sitting comfortably in the recliner. Patient's family members were present. Patient wants to go home. Patient denies any new focal symptoms like numbness tingling focal weakness. Denies headache or dizziness. Patient does have some hematoma around the CEA site and the neck. 01/30/2024: Patient was initially seen by Dr. Froylan Rea. Please refer to his note for details. Patient is a 78-year-old female with acute CVA and has symptomatic left ICA stenosis. Patient had undergone left carotid endarterectomy with patch angioplasty today. Patient was seen for follow-up. Patient is reclining in the bed, appears comfortable. Complains of some neck pain from surgery, but otherwise no new focal symptoms. No headache or dizziness. Some of the workup during this hospital visit consisted of: HgbA1c is 5.5 TSH is 1.290 Lipid panel is triglyceride of 209, cholesterol 195, LDL is 107 and HDL of 45. CT Head is reported as age-appropriate senescent changes as described above. I personally reviewed the CT and agree there is no acute or subacute ischemic changes. MRI of the brain is reported as acute/subacute ischemic involving a small region within the left frontal parietal region. Progression of nonspecific white matter changes from prior MRI in 2017, likely secondary due to small vessel ischemic disease. I personally reviewed the MRI and I do agree that the patient has acute/subacute ischemia over the pre-central gyrus on the left. Carotid duplex: Measurement suggests severe proximal left ICA stenosis. Unable to visualize the right vertebral artery. 2D echo: Normal left ventricular size and systolic function with mild concentric left ventricular hypertrophy. Mild mitral and tricuspid and mild aortic insufficiency. Nonspecific thickening of mitral valve leaflet noted. Bubble study was somewhat suboptimal but no shunt based on available images. CTA head and neck is reported as no significant abnormality. But vascular reviewed imaging and felt has significant left ICA stenosis. Objective - Vital Signs Vital signs: Vital Signs Temp 97.5 F L 02/02/24 04:00 Pulse 74 02/02/24 04:00 Resp 16 02/02/24 04:00 BP 138/75 02/02/24 04:00 Pulse Ox 97 02/02/24 04:00 FiO2 2 01/31/24 12:00 Intake & Output 02/01/24 02/02/24 02/02/24 18:59 06:59 18:59 Intake Total 900 150 Output Total 450 Balance 900 -450 150 Weight 49.5 kg Intake: IV 300 Sodium Chloride 0.9% 1, 300 000 ml @ 20 mls/hr IV . Q24H AKIRA Rx#:[id number] Intake, IV Titration 300 Amount Magnesium Sulfate-D5w Pmx 300 1 gm In Dextrose/Water 1 100ml.bag @ 100 mls/hr IVPB Q1H AKIRA Rx#: [id number] Oral 300 150 Output: Urine 450 Straight 350 Other: Voiding Method Bedside Commode Bedside Commode # Voids 4 ABP, PAP, CO, CI - Last Documented Arterial Blood Pressure 138/98 - Exam Patient's mental status, speech and language functions are normal. No aphasia. On cranial examination pupils are equal, round and reacting, visual mancini are full, with no neglect. Her extraocular muscles intact with no nystagmus. Face is symmetric and tongue protrudes to midline. On muscle strength testing there is no pronator drift and the strength is normal in the arms and legs. Sensory to touch is equal with no neglect. No ataxia for [id number] testing. - Labs CBC & Chem 7: 02/02/24 07:16 02/02/24 07:16 Labs: Abnormal Lab Results - Last 24 Hours (Table) 02/01/24 02/01/24 02/01/24 Range/Units 11:44 17:16 19:20 WBC (3.8-10.6) k/uL RBC (3.80-5.40) m/uL Hgb (11.4-16.0) gm/dL Hct (34.0-46.0) % Neutrophils # (1.3-7.7) k/uL Lymphocytes # (1.0-4.8) k/uL Sodium (137-145) mmol/L Chloride (98-107) mmol/L Glucose (74-99) mg/dL POC Glucose (mg/dL) 140 H 151 H 176 H (70-110) mg/dL 02/02/24 02/02/24 02/02/24 Range/Units 06:10 07:16 07:16 WBC 13.1 H (3.8-10.6) k/uL RBC 3.55 L (3.80-5.40) m/uL Hgb 11.2 L (11.4-16.0) gm/dL Hct 31.8 L (34.0-46.0) % Neutrophils # 11.9 H (1.3-7.7) k/uL Lymphocytes # 0.9 L (1.0-4.8) k/uL Sodium 122 L (137-145) mmol/L Chloride 87 L (98-107) mmol/L Glucose 139 H (74-99) mg/dL POC Glucose (mg/dL) 173 H (70-110) mg/dL Microbiology - Last 24 Hours (Table) 01/30/24 10:00 Urine Culture - Final Urine,Voided Escherichia coli Assessment and Plan Assessment: * Acute to subacute ischemic stroke over left frontoparietal region. Patient had presented with left facial weakness and dysarthria. All symptoms have resolved. Current NIH stroke scale 0. * Probable symptomatic left ICA stenosis. Status post left CEA 01/30/2024 * Severe proximal Left ICA stenosis on carotid duplex. On CTA is reported as no significant abnormality but vascular feel there continues to be significant left ICA stenosis. * Status post left carotid endarterectomy 01/30/2024 * Hypertensive Urgency * Hypertension * Hyperlipidemia * Remote Tobacco use Plan: Patient was not on any antiplatelets at home. Dr. Rea started the patient on aspirin 81 mg and Plavix 75mg daily. Duration of dual antiplatelet medication as per vascular surgery. Continue Lipitor 80mg daily since can help stabilize carotid plaque. Patient had undergone left carotid endarterectomy, on 01/30/2024. No new focal symptoms. Every 4 hours neurochecks Cardiac monitoring Consulted PT OT and [employer] Will defer the rest of the medical management to primary and other specialist For DVT prophylaxis: On subcu heparin 5000 units every 12 hours Neurologically clear for discharge. Discussed with patient's nurse. Addendum 7:10 PM: Patient apparently has been transferred to room 380 earlier today. Patient suffered from a fall. On initial nursing assessment patient was noted to have slurred speech and left facial drooling. Code stroke was called. Patient stated that she did hit her head "not hard". Nursing staff noted and a stroke scale 2, but on my assessment was 4, as there was moderate dysarthria, mild aphasia and mild right pronation of the upper extremity which was not present earlier this afternoon when I saw her in the ICU. Patient was fully alert and awake. Her speech was moderately dysarthric, having difficulty with repetition. Patient was not a candidate for TNK, as patient is recent post left CEA. CT head revealed no acute intracranial process. I personally reviewed CT head agree with the findings. Stat CTA of head and neck revealed no flow-limiting stenosis in bilateral carotid bifurcations. 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 Normal [facility] [place]. Soft tissue density right upper lung field. Nursing staff discussed with Dr. Faulkner, who had reviewed the images, did not recommend any vascular surgical intervention for carotid web. Patient to be continued on aspirin 81 mg and Plavix 75 mg. Consider repeating MRI of the brain. Continue neurochecks. Time with Patient: Greater than 30
[2024-02-02 11:47] LABS: Glucose,Whole Blood 141 mg/dL (70-110)
[2024-02-02 12:04] VITALS: BMI 19.9
[2024-02-02] MEDS: guaiFENesin SYRUP 100MG/5ML 200 MG/10 ML CUP PO PRN (12:58)
--- NOTE | 2024-02-02 14:12 | P.PN ---
Subjective HISTORY OF PRESENT ILLNESS: The patient is a pleasant 78-year-old female patient with a past medical history significant for hypertension and dyslipidemia and carotid atherosclerosis who was admitted to the hospital with CVA with a CT scan of the brain showing acute/subacute stroke involving the left frontal/partial lobes. Subsequently the patient underwent left carotid endarterectomy few days ago. We seen the patient and sign off on the patient after the patient underwent loop recorder implantation to rule out paroxysmal atrial fibrillation. January 31, 2024 We requested to see the patient because of sinus tachycardia. Hemodynamically she continues to be stable and as a matter fact she is hypertensive with a pressure consistent with stage II hypertension. I did perform twelve-lead EKG and that showed sinus rhythm with mild sinus tachycardia. Apparently the sinus tachycardia is only with physical activities and has not exceeded 100 bpm with resting. Her heart rate has been staying below 100 bpm. She is asymptomatic with no feeling of heart racing or fluttering or dizziness or lightheadedness and no symptoms of chest pain or chest discomfort or shortness of breath at this point. The physical examination is remarkable for regular rhythm with a systolic murmur at the right and left upper sternal border with clear breathing sounds bilaterally and no edema was noted. The patient does have some ecchymosis involving the left neck after the surgery February 01, 2024 The patient was seen and evaluated this morning. She is asymptomatic and hemodynamically stable besides mild tachycardia with activities. At this point I would continue the current medical regimen and avoid blunting her heart rate unless the patient need to be treated for the hypertension then I would consider starting the patient on small dose of beta-adriana for both the blood pressure and the heart rate. Otherwise the patient can be transferred out of the ICU. The examination is remarkable for mild sinus tachycardia with clear breathing so unds bilaterally and no edema was noted 02/02/2024 Patient examined this morning the bedside. Patient currently denies chest pain or pressure. She denies shortness of breath. Patient states she did fall yesterday and hit her head. No other injuries were noted. Telemetry reveals sinus mechanism. Vital signs are stable. PHYSICAL EXAM: VITAL SIGNS: Reviewed. GENERAL: Well-developed in no acute distress. NECK: Supple. No JVD or thyromegaly LUNGS: Respirations even and unlabored. Lungs essentially clear to auscultation bilaterally. HEART: Regular rate and rhythm. S1 and S2 heard. EXTREMITIES: Normal range of motion. No clubbing or cyanosis. Peripheral pulses intact. No lower extremity edema ASSESSMENT: Acute/subacute CVA Carotid arthrosclerosis, status post left carotid endarterectomy Sinus tachycardia Hypertension Hyperlipidemia Status post loop recorder insertion PLAN: Continue current cardiac medications Continue telemetry monitoring Patient is stable from a cardiac standpoint Further recommendations pending patient course Nurse practitioner note has been reviewed by physician. Signing provider agrees with the documented findings, assessment, and plan of care documented by [employer] as a scribe. Objective - Vital Signs Vital signs: Vital Signs Temp 98.1 F 02/02/24 08:00 Pulse 88 02/02/24 08:00 Resp 17 02/02/24 08:00 BP 137/81 02/02/24 08:00 Pulse Ox 97 02/02/24 08:00 FiO2 2 01/31/24 12:00 Intake & Output 02/01/24 02/02/24 02/02/24 18:59 06:59 18:59 Intake Total 900 300 Output Total 450 172 Balance 900 -450 128 Weight 49.5 kg 49.5 kg Intake: IV 300 Sodium Chloride 0.9% 1, 300 000 ml @ 20 mls/hr IV . Q24H AKIRA Rx#:[id number] Intake, IV Titration 300 Amount Magnesium Sulfate-D5w Pmx 300 1 gm In Dextrose/Water 1 100ml.bag @ 100 mls/hr IVPB Q1H AKIRA Rx#: [id number] Oral 300 300 Output: Urine 450 Straight 350 Post Void Residual 172 Other: Voiding Method Bedside Commode Bedside Commode Bedside Commode # Voids 4 2 ABP, PAP, CO, CI - Last Documented Arterial Blood Pressure 138/98 - Labs CBC & Chem 7: 02/02/24 07:16 02/02/24 07:16 Labs: Abnormal Lab Results - Last 24 Hours (Table) 02/01/24 02/01/24 02/02/24 Range/Units 17:16 19:20 06:10 WBC (3.8-10.6) k/uL RBC (3.80-5.40) m/uL Hgb (11.4-16.0) gm/dL Hct (34.0-46.0) % Neutrophils # (1.3-7.7) k/uL Lymphocytes # (1.0-4.8) k/uL Sodium (137-145) mmol/L Chloride (98-107) mmol/L Glucose (74-99) mg/dL POC Glucose (mg/dL) 151 H 176 H 173 H (70-110) mg/dL 02/02/24 02/02/24 02/02/24 Range/Units 07:16 07:16 11:46 WBC 13.1 H (3.8-10.6) k/uL RBC 3.55 L (3.80-5.40) m/uL Hgb 11.2 L (11.4-16.0) gm/dL Hct 31.8 L (34.0-46.0) % Neutrophils # 11.9 H (1.3-7.7) k/uL Lymphocytes # 0.9 L (1.0-4.8) k/uL Sodium 122 L (137-145) mmol/L Chloride 87 L (98-107) mmol/L Glucose 139 H (74-99) mg/dL POC Glucose (mg/dL) 141 H (70-110) mg/dL Microbiology - Last 24 Hours (Table) 01/30/24 10:00 Urine Culture - Final Urine,Voided Escherichia coli
[2024-02-02 16:33] LABS: Glucose,Whole Blood 136 mg/dL (70-110)
[2024-02-02] MEDS: INSULIN ASPART (NovoLOG) 100 UNIT/ML VIAL SQ SCH (16:37)
[2024-02-02] MEDS: SODIUM CHLORIDE TAB 1 GM TAB PO STA (17:48)
[2024-02-02 20:17] LABS: Glucose,Whole Blood 125 mg/dL (70-110)
[2024-02-03] MEDS: SODIUM CHLORIDE TAB 1 GM TAB PO STA (00:09)
[2024-02-03 06:13] LABS: Glucose,Whole Blood 115 mg/dL (70-110)
--- NOTE | 2024-02-03 07:27 | P.PN ---
Subjective Progress Note Date: 02/02/24 78-year-old white female who had episode of slurred speech last night continuing into the evening when her noticed she denied any weakness to her upper extremities or lower extremities she denies any loss of consciousness or dizziness she denies any headache she was noted to have a left facial droop patient denies any previous history of cerebrovascular accident. She denies any alcohol or drugs. She denies any fever. She was subsequently brought to the [facility] emergency department and found to have acute CVA and was subsequently admitted. --symptoms improving, minimal slurred speech .brain MRI reported acute/subacute ischemia involving small region within the left frontoparietal region. Progression of nonspecific white matter changes from prior MRI in 2017 likely secondary to small vessel ischemic disease. Carotid Doppler suggested severe proximal left ICA stenosis, unable to visualize right vertebral artery. Vascular surgery consulted. CTA of head and neck pending. Echo reported normal LV function, mild concentric LVH, none specific thickening of mitral valve leaflets noted, bubble study somewhat suboptimal, no shunt based on available images. 01/28/2024 Patient is seen and evaluated with family at bedside; reports worsening chronic back pain Vital signs are reviewed and remained stable Lab review shows a WBC of 10.7, hemoglobin of 12.8 and platelet count of 284, sodium 136, potassium 3.7, BUNs/creatinine of 20/0.75 -Cardiology recommending to increase losartan to 100 mg daily; patient presented with hypertensive urgency; blood pressure remains elevated Left ICA stenosis with acute or subacute acute ischemic stroke on MRI; for possible carotid endarterectomy on Tuesday01/29/2024 Patient seen and evaluated resting in bed; has been placed on Ultram for back pain; reports adequate pain control Signs are reviewed and stable with temperature of 98.1, pulse 96, respirations 16 and blood pressure 143/67 WBC 13.2, hemoglobin 13.1, hematocrit 39.0, platelets 311, sodium 133, potassium 3.4, BUN 15, creatinine 0.70 -- Cardiology on board and recommending to continue with current therapy -- Possible carotid endarterectomy tomorrow for left ICA stenosis with acute/subacute ischemic stroke 01/30/2024 Patient is evaluated today will be going for left carotid endartectomy today. Status post loop recorder. BUN 24, creatinine 1.05, sodium 133. 01/31/2024 Is evaluated today in the intensive care unit postoperative day #1 left carotid endarterectomy secondary to severe left ICA stenosis. Patient has been hypertensive did require nitro overnight she is also tachycardic today up into the 130s with ambulation. Pending further recommendations from cardiology for this. Patient continues on losartan at this time. Her main complaint today is a sore throat. Urinalysis was abnormal with urine culture showing gram-negative bacilli patient is not complaining of any dysuria at this time will monitor off antibiotics. White blood cell count 15.3, hgb 10.4, Sodium 129, BUN 19, creatinine 0.72. 02/01/2024 Patient is evaluated toady in the ICU postoperative day #2 left carotid endartectomy. Sodium 127 today, fluids will be stopped and hydrochlorothiazide will be held. Remains on losartan and will be started on low dose beta adriana. Urine culture showing gram negative bacilli. Patient has been started on IV levofloxacin. 02/02/2024 Patient is eval today in follow-up she is postoperative day #3 left carotid enterectomy. Patient was moved out of the ICU yesterday afternoon. She did have a follow-up in the bathroom resulting in hitting her head and some confusion and slurred speech. "Stroke was called neurology came to the bedside she had repeat brain imaging which was negative and her mentation has gone back to baseline at this time. Patient was taken off fluids as well as her hydrochlorothiazide her sodium is low today at 122. Review of Systems Constitutional: Denied any fatigue denied any fever. Cardio vascular: denied any chest pain, palpitations Gastrointestinal: denied any nausea, vomiting, diarrhea Pulmonary: Denied any shortness of breath cough Neurologic denied any new focal deficits All inpatient medications were reviewed and appropriate changes in these medications as dictated in the interval history and assessment and plan. PHYSICAL EXAMINATION: GENERAL: The patient is alert and oriented x3, not in any acute distress. Well developed, well nourished. HEENT: Pupils are round and equally reacting to light. EOMI. No scleral icterus. No conjunctival pallor. Normocephalic, atraumatic. No pharyngeal erythema. No thyromegaly. CARDIOVASCULAR: S1 and S2 present. No murmurs, rubs, or gallops. PULMONARY: Chest is clear to auscultation, no wheezing or crackles. ABDOMEN: Soft, nontender, nondistended, normoactive bowel sounds. No palpable organomegaly. MUSCULOSKELETAL: No joint swelling or deformity. EXTREMITIES: No cyanosis, clubbing, or pedal edema. NEUROLOGICAL: Gross neurological examination did not reveal any focal deficits. SKIN: Overweight no rashes. Bruising and swelling along the left jaw/neck. Dressing intact. Assessment and Plan Acute/subacute ischemic stroke on MRI Left ICA stenosis post left carotid endarterectomy Hypertensive urgency, better controlled Sinus tachycardic Acute urinary tract infection Hyponatremia Hyperlipidemia Aortic valve insufficiency Remote tobacco use and dependence NO CODE Plan: Continue current cardiac medications: Aspirin 81 mg daily Lipitor 80 mg daily, Plavix 75 mg daily, losartan 50 mg daily. Patient has been started on metoprolol 25 mg BID. Patient is status post loop recorder implantation Stop normal saline and hold hydrochlorothiazide. Sodium level 122 now will consult nephrology. Pending final urine culture, patient has been started on IV levofloxacin. PT/OT consultation. The impression and plan of care has been dictated by Ning Frazier, Nurse Practitioner as directed. Dr. Rhonda MD I have performed a history and physical examination and medical decision making of this patient, discussed the same with the dictator, and agree with the dictators assessment and plan as written, documented as a scribe. Based on total visit time, I have performed more than 50% of this visit. Objective - Vital Signs Vital signs: Vital Signs Temp 98.1 F 02/03/24 04:00 Pulse 78 02/03/24 04:00 Resp 17 02/03/24 04:00 BP 128/75 02/03/24 04:00 Pulse Ox 95 02/03/24 04:00 FiO2 2 01/31/24 12:00 Intake & Output 02/02/24 02/03/24 02/03/24 18:59 06:59 18:59 Intake Total 450 Output Total 172 200 Balance 278 -200 Weight 49.5 kg 49.4 kg Intake: Oral 450 Output: Urine 200 Post Void Residual 172 Other: Voiding Method Bedside Commode Bedside Commode # Voids 2 2 ABP, PAP, CO, CI - Last Documented Arterial Blood Pressure 138/98 - Labs CBC & Chem 7: 02/02/24 07:16 02/02/24 16:48 Labs: Abnormal Lab Results - Last 24 Hours (Table) 02/02/24 02/02/24 02/02/24 Range/Units 07:16 07:16 11:46 WBC 13.1 H (3.8-10.6) k/uL RBC 3.55 L (3.80-5.40) m/uL Hgb 11.2 L (11.4-16.0) gm/dL Hct 31.8 L (34.0-46.0) % Neutrophils # 11.9 H (1.3-7.7) k/uL Lymphocytes # 0.9 L (1.0-4.8) k/uL Sodium 122 L (137-145) mmol/L Chloride 87 L (98-107) mmol/L Glucose 139 H (74-99) mg/dL POC Glucose (mg/dL) 141 H (70-110) mg/dL Ur Random Sodium (40-220) mmol/L 02/02/24 02/02/24 02/02/24 Range/Units 16:32 16:48 17:39 WBC (3.8-10.6) k/uL RBC (3.80-5.40) m/uL Hgb (11.4-16.0) gm/dL Hct (34.0-46.0) % Neutrophils # (1.3-7.7) k/uL Lymphocytes # (1.0-4.8) k/uL Sodium 120 L (137-145) mmol/L Chloride (98-107) mmol/L Glucose (74-99) mg/dL POC Glucose (mg/dL) 136 H (70-110) mg/dL Ur Random Sodium 21 L (40-220) mmol/L 02/02/24 02/03/24 Range/Units 20:10 06:02 WBC (3.8-10.6) k/uL RBC (3.80-5.40) m/uL Hgb (11.4-16.0) gm/dL Hct (34.0-46.0) % Neutrophils # (1.3-7.7) k/uL Lymphocytes # (1.0-4.8) k/uL Sodium (137-145) mmol/L Chloride (98-107) mmol/L Glucose (74-99) mg/dL POC Glucose (mg/dL) 125 H 115 H (70-110) mg/dL Ur Random Sodium (40-220) mmol/L Assessment and Plan Time with Patient: Less than 30
[2024-02-03 08:05] LABS: Basophils % (A) 0 %; Eosinophils # (A) 0.5 k/uL (0-0.7); Eosinophils % (A) 4 %; HCT 29.1 % (34.0-46.0); HGB 10.4 gm/dL (11.4-16.0); Lymphocytes # (A) 2.1 k/uL (1.0-4.8); Lymphocytes % (A) 14 %; MCH 31.9 pg (25.0-35.0); MCHC 35.6 g/dL (31.0-37.0); MCV 89.5 fL (80.0-100.0); Mean Platelet Volume 7.7; Monocytes # (A) 1.1 k/uL (0-1.0); Monocytes % (A) 7 %; Neutrophils # (A) 11.3 k/uL (1.3-7.7); Neutrophils % (A) 74 %; Platelet Count 384 k/uL (150-450); RBC 3.26 m/uL (3.80-5.40); RDW 12.7 % (11.5-15.5); WBC 15.3 k/uL (3.8-10.6)
[2024-02-03 08:12] LABS: African American GFR (CKD) 82 (>60 ml/min/1.73 sqM); Anion Gap 7 mmol/L; Blood Urea Nitrogen 18 mg/dL (7-17); Calcium 9.1 mg/dL (8.4-10.2); Carbon Dioxide 28 mmol/L (22-30); Chloride 91 mmol/L (98-107); Glucose 101 mg/dL (74-99); Magnesium 1.7 mg/dL (1.6-2.3); Non-African American GFR(CKD) 72 (>60 ml/min/1.73 sqM); Potassium 3.7 mmol/L (3.5-5.1); Sodium 126 mmol/L (137-145)
--- NOTE | 2024-02-03 11:20 | P.NPCON ---
History of Present Illness - Reason for Consult hyponatremia - History of Present Illness Patient is a 78-year-old female who was admitted to the hospital with a history weakness and was noted to have facial droop. Patient was diagnosed with acute CVA with symptomatic left internal carotid artery stenosis. Status post left carotid endarterectomy and angioplasty.on 01/30/2024. No previous history of hyponatremia. Serum sodium was 130 on admission and improved to about 133 on 01/30/2024. The next day serum sodium dropped to 129 and subsequently 127 the next day. Saline was started for a few hours and was eventually discontinued. Patient was also on hydrochlorothiazide which was discontinued on 02/01/2024. Serum sodium dropped to 120 yesterday. Status post sodium chloride yesterday and today sodium has improved to 126. She has been off of IV fluids. Blood pressure has not been low. No complaints of nausea or vomiting. Patient has had good urine output. Urine osmolality and urine sodium is pending. Past Medical History Past Medical History: Asthma, Cancer, Fibromyalgia, GERD/Reflux, Hyperlipidemia, Hypertension, Liver Disease, Musculoskeletal Disorder, Osteoarthritis (OA), Sleep Apnea/CPAP/BIPAP Additional Past Medical History / Comment(s): HX OF SKIN CANCER; KIDNEY CA 2016. BACK PAIN, PINCHED NERVE BACK & NECK, DDD; OCC NT RT LEG. SL EDEMA RT LEG. IBS. FATTY LIVER. SLEEP APNEA MILD ONLY. History of Any Multi-Drug Resistant Organisms: None Reported Past Surgical History: Appendectomy, Bladder Surgery, Cholecystectomy, Hysterectomy Additional Past Surgical History / Comment(s): PARTIAL HYST , LEFT OVARY & TUBE, RIGHT OVARY & TUBE, BLADDER SUSPENSION X4, BONE FROM LEFT HIP AREA USED TO REBUILD UPPER JAW. RESECTION LT KIDNEY D/T CA 09/2016. Past Anesthesia/Blood Transfusion Reactions: No Reported Reaction Past Psychological History: Depression Smoking Status: Former smoker Past Alcohol Use History: Rare Past Drug Use History: Marijuana - Past Family History Father Family Medical History: Cancer Additional Family Medical History / Comment(s): LUNG CANCER Medications and Allergies Home Medications Medication Instructions Recorded Confirmed Type Omeprazole [PriLOSEC] 40 mg PO DAILY 09/23/17 01/23/24 History Escitalopram [Lexapro] 20 mg PO DAILY 01/23/24 01/23/24 History Linaclotide [Linzess] 145 mcg PO DAILY 01/23/24 01/23/24 History Losartan [Cozaar] 50 mg PO DAILY 01/23/24 01/23/24 History Rosuvastatin [Crestor] 10 mg PO HS 01/23/24 01/23/24 History hydroCHLOROthiazide [Hydrodiuril] 12.5 mg PO DAILY 01/23/24 01/23/24 History Clopidogrel [Plavix] 75 mg PO DAILY #30 tab 02/01/24 Rx Allergies Allergy/AdvReac Type Severity Reaction Status Date / Time iodine Allergy Severe Anaphylaxis Verified 01/30/24 11:20 shellfish derived [Shellfish] Allergy Severe Anaphylaxis Verified 01/30/24 11:20 cephalexin monohydrate Allergy Unknown Rash/Hives, Verified 01/30/24 11:20 [From Keflex] Asthma Symptoms codeine Allergy Unknown Rash/Hives, Verified 01/30/24 11:20 Asthma Symptoms Penicillins Allergy Unknown Rash/Hives, Verified 01/30/24 11:20 Asthma symptoms orange roughy Allergy Severe Anaphylaxis Uncoded 01/30/24 11:20 Physical Exam Vitals: Vital Signs Temp Pulse Resp BP Pulse Ox 02/03/24 04:00 98.1 F 78 17 128/75 95 02/02/24 23:11 98.0 F 79 17 157/73 96 02/02/24 19:34 98.4 F 76 17 134/77 98 02/02/24 16:00 97.2 F L 88 17 137/69 97 02/02/24 12:00 97.6 F 88 16 97 Intake and Output 02/02/24 02/03/24 02/03/24 22:59 06:59 14:59 Intake Total 150 118 Output Total 200 Balance 150 -200 118 Intake: Oral 150 118 Output: Urine 200 Other: Voiding Method Bedside Commode Bedside Commode # Voids 2 Weight 49.4 kg 49.4 kg patient is awake, and comfortable, no acute distress. Bruising noted on the left neck area and face Examination of the heart S1 and S2 Examination of the lungs bilateral breath sounds are heard Abdomen is soft nontender Examination of lower extremity shows no significant edema No focal motor deficits noted Results - Lab Results Most recent lab results Calcium 9.1 mg/dL (8.4-10.2) 02/03/24 07:41 Magnesium 1.7 mg/dL (1.6-2.3) 02/03/24 07:41 02/03/24 07:41 02/03/24 07:41 Assessment and Plan Assessment: 1. 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 Serum sodium had worsened with normal saline. Currently improved with sodium chloride tab. Urine osmolality 523. 2. Acute to subacute ischemic stroke's of left frontoparietal region status post left CEA on 01/30/2024 for left ICA stenosis 3. Hypertension, blood pressure was elevated 2 days ago but much improved now. Ibuprofen will be discontinued. Plan: repeat sodium today. Add Samsca 7.5 mg if sodium is not further improved. DC Motrin Maintain fluid restriction. Next Thank you for the consultation. We will continue to follow the patient with you during her hospitalization.
--- NOTE | 2024-02-03 11:22 | P.PN ---
Subjective Progress Note Date: 02/02/24 02/02/2024: Patient was seen for a follow-up. Patient is sitting in the bed, appears fully alert and awake, very pleasant. Symptoms have mostly resolved. 02/01/2024: Patient was seen in the ICU for a follow-up. Patient's nurse Es was present. Patient is sitting comfortably in the recliner. Patient's family members were present. Patient wants to go home. Patient d enies any new focal symptoms like numbness tingling focal weakness. Denies headache or dizziness. Patient does have some hematoma around the CEA site and the neck. 01/30/2024: Patient was initially seen by Dr. Froylan Rea. Please refer to his note for details. Patient is a 78-year-old female with acute CVA and has symptomatic left ICA stenosis. Patient had undergone left carotid endarterectomy with patch angioplasty today. Patient was seen for follow-up. Patient is reclining in the bed, appears comfortable. Complains of some neck pain from surgery, but otherwise no new focal symptoms. No headache or dizziness. Some of the workup during this hospital visit consisted of: HgbA1c is 5.5 TSH is 1.290 Lipid panel is triglyceride of 209, cholesterol 195, LDL is 107 and HDL of 45. CT Head is reported as age-appropriate senescent changes as described above. I personally reviewed the CT and agree there is no acute or subacute ischemic changes. MRI of the brain is reported as acute/subacute ischemic involving a small region within the left frontal parietal region. Progression of nonspecific white matter changes from prior MRI in 2017, likely secondary due to small vessel ischemic disease. I personally reviewed the MRI and I do agree that the patient has acute/subacute ischemia over the pre-central gyrus on the left. Carotid duplex: Measurement suggests severe proximal left ICA stenosis. Unable to visualize the right vertebral artery. 2D echo: Normal left ventricular size and systolic function with mild concentric left ventricular hypertrophy. Mild mitral and tricuspid and mild aortic insufficiency. Nonspecific thickening of mitral valve leaflet noted. Bubble study was somewhat suboptimal but no shunt based on available images. CTA head and neck is reported as no significant abnormality. But vascular reviewed imaging and felt has significant left ICA stenosis. Objective - Vital Signs Vital signs: Vital Signs Temp 98.1 F 02/03/24 04:00 Pulse 78 02/03/24 04:00 Resp 17 02/03/24 04:00 BP 128/75 02/03/24 04:00 Pulse Ox 95 02/03/24 04:00 FiO2 2 01/31/24 12:00 Intake & Output 02/02/24 02/03/24 02/03/24 18:59 06:59 18:59 Intake Total 450 118 Output Total 172 200 Balance 278 -200 118 Weight 49.5 kg 49.4 kg 49.4 kg Intake: Oral 450 118 Output: Urine 200 Post Void Residual 172 Other: Voiding Method Bedside Commode Bedside Commode # Voids 2 2 ABP, PAP, CO, CI - Last Documented Arterial Blood Pressure 138/98 - Exam Patient's mental status, speech is mildly dysarthric and language functions are normal. No aphasia. Patient can name and repeat all objects presented. No paraphasic errors noted. On cranial examination pupils are equal, round and reacting, visual mancini are full, with no neglect. Her extraocular muscles intact with no nystagmus. Face is symmetric and tongue protrudes to midline. On muscle strength testing there is no pronator drift and the strength is normal in the arms and legs. Sensory to touch is equal with no neglect. No ataxia for [id number] testing. - Labs CBC & Chem 7: 02/03/24 07:41 02/03/24 12:53 Labs: Abnormal Lab Results - Last 24 Hours (Table) 02/02/24 02/02/24 02/02/24 Range/Units 11:46 16:32 16:48 WBC (3.8-10.6) k/uL RBC (3.80-5.40) m/uL Hgb (11.4-16.0) gm/dL Hct (34.0-46.0) % Neutrophils # (1.3-7.7) k/uL Monocytes # (0-1.0) k/uL Sodium 120 L (137-145) mmol/L Chloride (98-107) mmol/L BUN (7-17) mg/dL Glucose (74-99) mg/dL POC Glucose (mg/dL) 141 H 136 H (70-110) mg/dL Ur Random Sodium (40-220) mmol/L 02/02/24 02/02/24 02/03/24 Range/Units 17:39 20:10 06:02 WBC (3.8-10.6) k/uL RBC (3.80-5.40) m/uL Hgb (11.4-16.0) gm/dL Hct (34.0-46.0) % Neutrophils # (1.3-7.7) k/uL Monocytes # (0-1.0) k/uL Sodium (137-145) mmol/L Chloride (98-107) mmol/L BUN (7-17) mg/dL Glucose (74-99) mg/dL POC Glucose (mg/dL) 125 H 115 H (70-110) mg/dL Ur Random Sodium 21 L (40-220) mmol/L 02/03/24 02/03/24 Range/Units 07:41 07:41 WBC 15.3 H (3.8-10.6) k/uL RBC 3.26 L (3.80-5.40) m/uL Hgb 10.4 L (11.4-16.0) gm/dL Hct 29.1 L (34.0-46.0) % Neutrophils # 11.3 H (1.3-7.7) k/uL Monocytes # 1.1 H (0-1.0) k/uL Sodium 126 L (137-145) mmol/L Chloride 91 L (98-107) mmol/L BUN 18 H (7-17) mg/dL Glucose 101 H (74-99) mg/dL POC Glucose (mg/dL) (70-110) mg/dL Ur Random Sodium (40-220) mmol/L Assessment and Plan Assessment: * Status post another ischemic event (02/01/2024) after the fall yesterday, when patient developed slurred speech, mild aphasia, right facial droop and right pronator drift (NIH stroke scale 4). Her symptoms now have again improved with NIH stroke scale of 1 with mild dysarthria. * Patient's initial presentation (01/23/2024) for an acute to subacute ischemic stroke over left frontoparietal region. Patient had presented with left facial weakness and dysarthria. All symptoms have resolved. Current NIH stroke scale 0. * Probable symptomatic left ICA stenosis. Status post left CEA 01/30/2024 * Severe proximal Left ICA stenosis on carotid duplex. On CTA is reported as no significant abnormality but vascular feel there continues to be significant left ICA stenosis. * Status post left carotid endarterectomy 01/30/2024 * Hypertensive Urgency * Hyponatremia, with sodium 120 * Hypertension * Hyperlipidemia * Remote Tobacco use Plan: Patient was not on any antiplatelets at home. Dr. Rea started the patient on aspirin 81 mg and Plavix 75mg daily. Duration of dual antiplatelet medication as per vascular surgery. Continue Lipitor 80mg daily since can help stabilize carotid plaque. Patient had undergone left carotid endarterectomy, on 01/30/2024. Patient had recurrence of some symptoms after a fall yesterday, but now symptoms have much improved. Stat CTA of head and neck revealed no flow-limiting stenosis in bilateral carotid bifurcations. 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 Normal [place]. Soft tissue density right upper lung field. I spoke to Dr. Faulkner, who feels this is due to a kink, does not believe is an actual web, as it does not develop overnight. She does not recommend any further intervention. Every 4 hours neurochecks Cardiac monitoring Consulted PT OT and WEB DEVELOPMENT CONSULTANT Patient has hyponatremia off 120. Nephrology consulted. Will defer the rest of the medical management to primary and other specialist For DVT prophylaxis: On subcu heparin 5000 units every 12 hours Neurologically clear.
[2024-02-03 11:44] LABS: Glucose,Whole Blood 106 mg/dL (70-110)
--- NOTE | 2024-02-03 12:26 | P.PN ---
Subjective Principal diagnosis: Carotid stenosis Patient seen and examined today as a follow-up. No acute changes through the night. Patient still hyponatremic, nephrology consulted. No focal deficits reported. Objective - Vital Signs Vital signs: Vital Signs Temp 98.1 F 02/03/24 04:00 Pulse 78 02/03/24 04:00 Resp 17 02/03/24 04:00 BP 128/75 02/03/24 04:00 Pulse Ox 95 02/03/24 04:00 FiO2 2 01/31/24 12:00 Intake & Output 02/02/24 02/03/24 02/03/24 18:59 06:59 18:59 Intake Total 450 118 Output Total 172 200 Balance 278 -200 118 Weight 49.5 kg 49.4 kg 49.4 kg Intake: Oral 450 118 Output: Urine 200 Post Void Residual 172 Other: Voiding Method Bedside Commode Bedside Commode # Voids 2 2 ABP, PAP, CO, CI - Last Documented Arterial Blood Pressure 138/98 - Exam General appearance: The patient is alert, oriented, appears in no acute distress. HET: Head is normocephalic and atraumatic. Pupils are equal and reactive. Chest: Bruising along chest wall surrounding loop recorder incision site Neck: Supple. Left-side of neck incision well-approximated with surrounding ecchymosis, small hematoma medial aspect of incision. Bruising does wrap around patient's neck to the right side. Heart: Regular. Tachycardic. Lungs: Equal expansion, normal respiratory effort. Abdomen: Soft, nondistended. Extremities: Normal skin color and turgor. Palpable radial and DP pulses. Neurological: No focal deficits. Strength and sensation are grossly intact. - Labs CBC & Chem 7: 02/03/24 07:41 02/03/24 07:41 Labs: Abnormal Lab Results - Last 24 Hours (Table) 02/02/24 02/02/24 02/02/24 Range/Units 16:32 16:48 17:39 WBC (3.8-10.6) k/uL RBC (3.80-5.40) m/uL Hgb (11.4-16.0) gm/dL Hct (34.0-46.0) % Neutrophils # (1.3-7.7) k/uL Monocytes # (0-1.0) k/uL Sodium 120 L (137-145) mmol/L Chloride (98-107) mmol/L BUN (7-17) mg/dL Glucose (74-99) mg/dL POC Glucose (mg/dL) 136 H (70-110) mg/dL Ur Random Sodium 21 L (40-220) mmol/L 02/02/24 02/03/24 02/03/24 Range/Units 20:10 06:02 07:41 WBC 15.3 H (3.8-10.6) k/uL RBC 3.26 L (3.80-5.40) m/uL Hgb 10.4 L (11.4-16.0) gm/dL Hct 29.1 L (34.0-46.0) % Neutrophils # 11.3 H (1.3-7.7) k/uL Monocytes # 1.1 H (0-1.0) k/uL Sodium (137-145) mmol/L Chloride (98-107) mmol/L BUN (7-17) mg/dL Glucose (74-99) mg/dL POC Glucose (mg/dL) 125 H 115 H (70-110) mg/dL Ur Random Sodium (40-220) mmol/L 02/03/24 Range/Units 07:41 WBC (3.8-10.6) k/uL RBC (3.80-5.40) m/uL Hgb (11.4-16.0) gm/dL Hct (34.0-46.0) % Neutrophils # (1.3-7.7) k/uL Monocytes # (0-1.0) k/uL Sodium 126 L (137-145) mmol/L Chloride 91 L (98-107) mmol/L BUN 18 H (7-17) mg/dL Glucose 101 H (74-99) mg/dL POC Glucose (mg/dL) (70-110) mg/dL Ur Random Sodium (40-220) mmol/L Assessment and Plan Assessment: 1. Hemodynamically severe and symptomatic left ICA stenosis status post left carotid endarterectomy with patch angioplasty 2. Acute/subacute ischemia involving small region within the left frontoparietal region 3. Left facial droop and slurred speech, resolved 4. Hypertension 5. Hyperlipidemia 6. Hyponatremia 7. Fall 8. Urine culture positive for E. coli Plan: 1. Continue aspirin, Plavix and statin 2. Patient may have heart healthy diet 3. Activity as tolerated 4. Continue with recommendations from cardiology 5. Rest of medical management per primary medical team 6. Patient is cleared from vascular surgery once otherwise medically stable. Follow-up with Dr. Liu in 1 to 2 weeks. Thank you for this consultation, we will sign off at this time. The impression and plan of care has been dictated as directed. Dr. Faulkner I performed a history and examination of this patient, discussed the same with the dictator. I agree with the dictator's note ,documented as a scribe. Any additional findings or plans will be noted.
[2024-02-03] MEDS: LEVOFLOXACIN 250MG-D5W PMX 250 MG in DEXTROSE/WATER 1 50ML.BAG IVPB SCH (13:20)
--- NOTE | 2024-02-03 13:36 | P.PN ---
Subjective HISTORY OF PRESENT ILLNESS: The patient is a pleasant 78-year-old female patient with a past medical history significant for hypertension and dyslipidemia and carotid atherosclerosis who was admitted to the hospital with CVA with a CT scan of the brain showing acute/subacute stroke involving the left frontal/partial lobes. Subsequently the patient underwent left carotid endarterectomy few days ago. We seen the patient and sign off on the patient after the patient underwent loop recorder implantation to rule out paroxysmal atrial fibrillation. January 31, 2024 We requested to see the patient because of sinus tachycardia. Hemodynamically she continues to be stable and as a matter fact she is hypertensive with a pressure consistent with stage II hypertension. I did perform twelve-lead EKG and that showed sinus rhythm with mild sinus tachycardia. Apparently the sinus tachycardia is only with physical activities and has not exceeded 100 bpm with resting. Her heart rate has been staying below 100 bpm. She is asymptomatic with no feeling of heart racing or fluttering or dizziness or lightheadedness and no symptoms of chest pain or chest discomfort or shortness of breath at this point. The physical examination is remarkable for regular rhythm with a systolic murmur at the right and left upper sternal border with clear breathing sounds bilaterally and no edema was noted. The patient does have some ecchymosis involving the left neck after the surgery February 01, 2024 The patient was seen and evaluated this morning. She is asymptomatic and hemodynamically stable besides mild tachycardia with activities. At this point I would continue the current medical regimen and avoid blunting her heart rate unless the patient need to be treated for the hypertension then I would consider starting the patient on small dose of beta-adriana for both the blood pressure and the heart rate. Otherwise the patient can be transferred out of the ICU. The examination is remarkable for mild sinus tachycardia with clear breathing so unds bilaterally and no edema was noted 02/02/2024 Patient examined this morning the bedside. Patient currently denies chest pain or pressure. She denies shortness of breath. Patient states she did fall yesterday and hit her head. No other injuries were noted. Telemetry reveals sinus mechanism. Vital signs are stable. 02/03/2024 Patient examined this morning the bedside. Patient currently denies chest pain or pressure. She denies shortness of breath. Vital signs are stable. Telemetry reveals sinus mechanism. PHYSICAL EXAM: VITAL SIGNS: Reviewed. GENERAL: Well-developed in no acute distress. NECK: Supple. No JVD or thyromegaly LUNGS: Respirations even and unlabored. Lungs essentially clear to auscultation bilaterally. HEART: Regular rate and rhythm. S1 and S2 heard. EXTREMITIES: Normal range of motion. No clubbing or cyanosis. Peripheral pulses intact. No lower extremity edema ASSESSMENT: Acute/subacute CVA Carotid arthrosclerosis, status post left carotid endarterectomy Sinus tachycardia Hypertension Hyperlipidemia Status post loop recorder insertion PLAN: Continue current cardiac medications Continue telemetry monitoring Patient is stable from a cardiac standpoint We will sign off. Please reconsult if needed. Nurse practitioner note has been reviewed by physician. Signing provider agrees with the documented findings, assessment, and plan of care documented by CUSTOMER CARE COORDINATOR as a scribe. Objective - Vital Signs Vital signs: Vital Signs Temp 98.1 F 02/03/24 04:00 Pulse 78 02/03/24 04:00 Resp 17 02/03/24 04:00 BP 128/75 02/03/24 04:00 Pulse Ox 95 02/03/24 04:00 FiO2 2 01/31/24 12:00 Intake & Output 02/02/24 02/03/24 02/03/24 18:59 06:59 18:59 Intake Total 450 236 Output Total 172 200 Balance 278 -200 236 Weight 49.5 kg 49.4 kg 49.4 kg Intake: Oral 450 236 Output: Urine 200 Post Void Residual 172 Other: Voiding Method Bedside Commode Bedside Commode # Voids 2 2 ABP, PAP, CO, CI - Last Documented Arterial Blood Pressure 138/98 - Labs CBC & Chem 7: 02/03/24 07:41 02/03/24 07:41 Labs: Abnormal Lab Results - Last 24 Hours (Table) 02/02/24 02/02/24 02/02/24 Range/Units 16:32 16:48 17:39 WBC (3.8-10.6) k/uL RBC (3.80-5.40) m/uL Hgb (11.4-16.0) gm/dL Hct (34.0-46.0) % Neutrophils # (1.3-7.7) k/uL Monocytes # (0-1.0) k/uL Sodium 120 L (137-145) mmol/L Chloride (98-107) mmol/L BUN (7-17) mg/dL Glucose (74-99) mg/dL POC Glucose (mg/dL) 136 H (70-110) mg/dL Ur Random Sodium 21 L (40-220) mmol/L 02/02/24 02/03/24 02/03/24 Range/Units 20:10 06:02 07:41 WBC 15.3 H (3.8-10.6) k/uL RBC 3.26 L (3.80-5.40) m/uL Hgb 10.4 L (11.4-16.0) gm/dL Hct 29.1 L (34.0-46.0) % Neutrophils # 11.3 H (1.3-7.7) k/uL Monocytes # 1.1 H (0-1.0) k/uL Sodium (137-145) mmol/L Chloride (98-107) mmol/L BUN (7-17) mg/dL Glucose (74-99) mg/dL POC Glucose (mg/dL) 125 H 115 H (70-110) mg/dL Ur Random Sodium (40-220) mmol/L 02/03/24 Range/Units 07:41 WBC (3.8-10.6) k/uL RBC (3.80-5.40) m/uL Hgb (11.4-16.0) gm/dL Hct (34.0-46.0) % Neutrophils # (1.3-7.7) k/uL Monocytes # (0-1.0) k/uL Sodium 126 L (137-145) mmol/L Chloride 91 L (98-107) mmol/L BUN 18 H (7-17) mg/dL Glucose 101 H (74-99) mg/dL POC Glucose (mg/dL) (70-110) mg/dL Ur Random Sodium (40-220) mmol/L
[2024-02-03 16:20] LABS: Glucose,Whole Blood 104 mg/dL (70-110)
[2024-02-03] MEDS: TOLVAPTAN 15 MG TABLET PO ONE (17:35)
--- NOTE | 2024-02-03 18:42 | P.PN ---
Subjective Progress Note Date: 02/03/24 78-year-old white female who had episode of slurred speech last night continuing into the evening when her noticed she denied any weakness to her upper extremities or lower extremities she denies any loss of consciousness or dizziness she denies any headache she was noted to have a left facial droop patient denies any previous history of cerebrovascular accident. She denies any alcohol or drugs. She denies any fever. She was subsequently brought to the [facility] emergency department and found to have acute CVA and was subsequently admitted. --symptoms improving, minimal slurred speech .brain MRI reported acute/subacute ischemia involving small region within the left frontoparietal region. Progression of nonspecific white matter changes from prior MRI in 2017 likely secondary to small vessel ischemic disease. Carotid Doppler suggested severe proximal left ICA stenosis, unable to visualize right vertebral artery. Vascular surgery consulted. CTA of head and neck pending. Echo reported normal LV function, mild concentric LVH, none specific thickening of mitral valve leaflets noted, bubble study somewhat suboptimal, no shunt based on available images. 01/28/2024 Patient is seen and evaluated with family at bedside; reports worsening chronic back pain Vital signs are reviewed and remained stable Lab review shows a WBC of 10.7, hemoglobin of 12.8 and platelet count of 284, sodium 136, potassium 3.7, BUNs/creatinine of 20/0.75 -Cardiology recommending to increase losartan to 100 mg daily; patient presented with hypertensive urgency; blood pressure remains elevated Left ICA stenosis with acute or subacute acute ischemic stroke on MRI; for possible carotid endarterectomy on Tuesday01/29/2024 Patient seen and evaluated resting in bed; has been placed on Ultram for back pain; reports adequate pain control Signs are reviewed and stable with temperature of 98.1, pulse 96, respirations 16 and blood pressure 143/67 WBC 13.2, hemoglobin 13.1, hematocrit 39.0, platelets 311, sodium 133, potassium 3.4, BUN 15, creatinine 0.70 -- Cardiology on board and recommending to continue with current therapy -- Possible carotid endarterectomy tomorrow for left ICA stenosis with acute/subacute ischemic stroke 01/30/2024 Patient is evaluated today will be going for left carotid endartectomy today. Status post loop recorder. BUN 24, creatinine 1.05, sodium 133. 01/31/2024 Is evaluated today in the intensive care unit postoperative day #1 left carotid endarterectomy secondary to severe left ICA stenosis. Patient has been hypertensive did require nitro overnight she is also tachycardic today up into the 130s with ambulation. Pending further recommendations from cardiology for this. Patient continues on losartan at this time. Her main complaint today is a sore throat. Urinalysis was abnormal with urine culture showing gram-negative bacilli patient is not complaining of any dysuria at this time will monitor off antibiotics. White blood cell count 15.3, hgb 10.4, Sodium 129, BUN 19, creatinine 0.72. 02/01/2024 Patient is evaluated toady in the ICU postoperative day #2 left carotid endartectomy. Sodium 127 today, fluids will be stopped and hydrochlorothiazide will be held. Remains on losartan and will be started on low dose beta adriana. Urine culture showing gram negative bacilli. Patient has been started on IV levofloxacin. 02/02/2024 Patient is eval today in follow-up she is postoperative day #3 left carotid enterectomy. Patient was moved out of the ICU yesterday afternoon. She did have a follow-up in the bathroom resulting in hitting her head and some confusion and slurred speech. "Stroke was called neurology came to the bedside she had repeat brain imaging which was negative and her mentation has gone back to baseline at this time. Patient was taken off fluids as well as her hydrochlorothiazide her sodium is low today at 122. 02/03/2024 Patient is evaluated today in follow up on the stepdown unit. Postoperative day #4 left carotid endartectomy. Sodium 126 patient will receive oral samsca today and repeat blood work tomorrow. No acute events overnight. Review of Systems Constitutional: Denied any fatigue denied any fever. Cardio vascular: denied any chest pain, palpitations Gastrointestinal: denied any nausea, vomiting, diarrhea Pulmonary: Denied any shortness of breath cough Neurologic denied any new focal deficits All inpatient medications were reviewed and appropriate changes in these medications as dictated in the interval history and assessment and plan. PHYSICAL EXAMINATION: GENERAL: The patient is alert and oriented x3, not in any acute distress. Well developed, well nourished. HEENT: Pupils are round and equally reacting to light. EOMI. No scleral icterus. No conjunctival pallor. Normocephalic, atraumatic. No pharyngeal erythema. No thyromegaly. CARDIOVASCULAR: S1 and S2 present. No murmurs, rubs, or gallops. PULMONARY: Chest is clear to auscultation, no wheezing or crackles. ABDOMEN: Soft, nontender, nondistended, normoactive bowel sounds. No palpable organomegaly. MUSCULOSKELETAL: No joint swelling or deformity. EXTREMITIES: No cyanosis, clubbing, or pedal edema. NEUROLOGICAL: Gross neurological examination did not reveal any focal deficits. SKIN: Overweight no rashes. Bruising and swelling along the left jaw/neck. Dressing intact. Assessment and Plan Acute/subacute ischemic stroke on MRI Left ICA stenosis post left carotid endarterectomy Hypertensive urgency, better controlled Sinus tachycardic Acute urinary tract infection Hyponatremia Hyperlipidemia Aortic valve insufficiency Remote tobacco use and dependence NO CODE Plan: Continue current cardiac medications: Aspirin 81 mg daily Lipitor 80 mg daily, Plavix 75 mg daily, losartan 50 mg daily. Patient has been started on metoprolol 25 mg BID. Patient is status post loop recorder implantation Stop normal saline and hold hydrochlorothiazide. Sodium level 126 patient to receive a dose of oral samsca today and repeat blood work tomorrow. Nephrology following Pending final urine culture, patient has been started on IV levofloxacin. PT/OT consultation. The impression and plan of care has been dictated by Ning Frazier, Nurse Practitioner as directed. Dr. Rhonda MD I have performed a history and physical examination and medical decision making of this patient, discussed the same with the dictator, and agree with the dictators assessment and plan as written, documented as a scribe. Based on total visit time, I have performed more than 50% of this visit. Objective - Vital Signs Vital signs: Vital Signs Temp 98.0 F 02/03/24 17:00 Pulse 71 02/03/24 17:00 Resp 18 02/03/24 17:00 BP 135/62 02/03/24 17:00 Pulse Ox 98 02/03/24 17:00 FiO2 2 01/31/24 12:00 Intake & Output 02/02/24 02/03/24 02/03/24 18:59 06:59 18:59 Intake Total 450 354 Output Total 172 200 Balance 278 -200 354 Weight 49.5 kg 49.4 kg 49.4 kg Intake: Oral 450 354 Output: Urine 200 Post Void Residual 172 Other: Voiding Method Bedside Commode Bedside Commode Bedside Commode # Voids 2 2 2 ABP, PAP, CO, CI - Last Documented Arterial Blood Pressure 138/98 - Labs CBC & Chem 7: 02/03/24 07:41 02/03/24 12:53 Labs: Abnormal Lab Results - Last 24 Hours (Table) 02/02/24 02/02/24 02/03/24 Range/Units 17:39 20:10 06:02 WBC (3.8-10.6) k/uL RBC (3.80-5.40) m/uL Hgb (11.4-16.0) gm/dL Hct (34.0-46.0) % Neutrophils # (1.3-7.7) k/uL Monocytes # (0-1.0) k/uL Sodium (137-145) mmol/L Chloride (98-107) mmol/L BUN (7-17) mg/dL Glucose (74-99) mg/dL POC Glucose (mg/dL) 125 H 115 H (70-110) mg/dL Ur Random Sodium 21 L (40-220) mmol/L 02/03/24 02/03/24 02/03/24 Range/Units 07:41 07:41 12:53 WBC 15.3 H (3.8-10.6) k/uL RBC 3.26 L (3.80-5.40) m/uL Hgb 10.4 L (11.4-16.0) gm/dL Hct 29.1 L (34.0-46.0) % Neutrophils # 11.3 H (1.3-7.7) k/uL Monocytes # 1.1 H (0-1.0) k/uL Sodium 126 L 125 L (137-145) mmol/L Chloride 91 L (98-107) mmol/L BUN 18 H (7-17) mg/dL Glucose 101 H (74-99) mg/dL POC Glucose (mg/dL) (70-110) mg/dL Ur Random Sodium (40-220) mmol/L Assessment and Plan Time with Patient: Less than 30
[2024-02-03 21:00] LABS: Glucose,Whole Blood 102 mg/dL (70-110)
[2024-02-04 00:15] VITALS: RESP 20
[2024-02-04 06:12] LABS: Glucose,Whole Blood 117 mg/dL (70-110)
[2024-02-04 07:10] LABS: Basophils # (A) 0.1 k/uL (0-0.2); Basophils % (A) 1 %; Eosinophils # (A) 1.1 k/uL (0-0.7); Eosinophils % (A) 10 %; HCT 32.3 % (34.0-46.0); Lymphocytes # (A) 1.2 k/uL (1.0-4.8); Lymphocytes % (A) 11 %; MCH 31.1 pg (25.0-35.0); MCV 91.2 fL (80.0-100.0); Monocytes # (A) 1.1 k/uL (0-1.0); Monocytes % (A) 9 %; Neutrophils # (A) 7.6 k/uL (1.3-7.7); Neutrophils % (A) 68 %; Platelet Count 403 k/uL (150-450); RBC 3.54 m/uL (3.80-5.40); RDW 12.4 % (11.5-15.5); WBC 11.3 k/uL (3.8-10.6)
[2024-02-04] MEDS: ONDANSETRON 4 MG/2 ML VIAL IM STA (07:47)
[2024-02-04 07:49] LABS: African American GFR (CKD) 85 (>60 ml/min/1.73 sqM); Anion Gap 7 mmol/L; Blood Urea Nitrogen 15 mg/dL (7-17); Calcium 9.5 mg/dL (8.4-10.2); Carbon Dioxide 29 mmol/L (22-30); Chloride 94 mmol/L (98-107); Glucose 102 mg/dL (74-99); Magnesium 1.7 mg/dL (1.6-2.3); Non-African American GFR(CKD) 74 (>60 ml/min/1.73 sqM); Sodium 130 mmol/L (137-145)
[2024-02-04] MEDS ORDERED: Magnesium Replacement Protocol 1 EACH MISC MISCELLANE PRN (09:16)
[2024-02-04] MEDS: MAGNESIUM SULFATE-D5W PMX 1 GM in DEXTROSE/WATER 1 100ML.BAG IVPB ONE (09:22)
[2024-02-04 11:09] VITALS: TEMP 98.1
[2024-02-04 11:38] LABS: Glucose,Whole Blood 137 mg/dL (70-110)
--- NOTE | 2024-02-04 12:03 | P.PN ---
Subjective Progress Note Date: 02/04/24 Patient seen in [facility] for hyponatremia. No new complaints. Patient is awake, and comfortable, no acute distress. Bruising noted on the left neck area and face Examination of the heart S1 and S2 Examination of the lungs bilateral breath sounds are heard Abdomen is soft nontender Examination of lower extremity shows no significant edema No focal motor deficits noted Objective - Vital Signs Vital signs: Vital Signs Temp 96.9 F L 02/04/24 04:30 Pulse 87 02/04/24 04:30 Resp 20 02/04/24 04:30 BP 148/72 02/04/24 04:30 Pulse Ox 95 02/04/24 04:30 FiO2 2 01/31/24 12:00 Intake & Output 02/03/24 02/04/24 02/04/24 18:59 06:59 18:59 Intake Total 354 Output Total 300 Balance 354 -300 Weight 49.4 kg 48.4 kg Intake: Oral 354 Output: Urine 300 Other: Voiding Method Bedside Commode Bedside Commode # Voids 2 2 ABP, PAP, CO, CI - Last Documented Arterial Blood Pressure 138/98 - Labs CBC & Chem 7: 02/04/24 06:28 02/04/24 06:28 Labs: Abnormal Lab Results - Last 24 Hours (Table) 02/03/24 02/04/24 02/04/24 Range/Units 12:53 06:00 06:28 WBC (3.8-10.6) k/uL RBC (3.80-5.40) m/uL Hgb (11.4-16.0) gm/dL Hct (34.0-46.0) % Monocytes # (0-1.0) k/uL Eosinophils # (0-0.7) k/uL Sodium 125 L 130 L (137-145) mmol/L Chloride 94 L (98-107) mmol/L Glucose 102 H (74-99) mg/dL POC Glucose (mg/dL) 117 H (70-110) mg/dL 02/04/24 Range/Units 06:28 WBC 11.3 H (3.8-10.6) k/uL RBC 3.54 L (3.80-5.40) m/uL Hgb 11.0 L (11.4-16.0) gm/dL Hct 32.3 L (34.0-46.0) % Monocytes # 1.1 H (0-1.0) k/uL Eosinophils # 1.1 H (0-0.7) k/uL Sodium (137-145) mmol/L Chloride (98-107) mmol/L Glucose (74-99) mg/dL POC Glucose (mg/dL) (70-110) mg/dL Assessment and Plan Assessment: 1. 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 Serum sodium had worsened with normal saline. Currently improved with sodium chloride tab and Samsca. Urine osmolality 523. 2. Acute to subacute ischemic stroke's of left frontoparietal region status pos t left CEA on 01/30/2024 for left ICA stenosis 3. Hypertension, blood pressure was elevated 2 days ago but much improved now. Ibuprofen will be discontinued. Plan: Sodium improved 130 today s/p Samsca 7.5 mg 02/02 DC Motrin Maintain fluid restriction Clear for discharge, follow-up 2-3 weeks repeat labs
--- NOTE | 2024-02-04 13:25 | P.DS ---
Providers Date of admission: 01/26/24 08:48 Attending physician: Tomas Escobar Consults: 01/23/24 15:28 Consult Physician Routine Consulting Provider: Froylan Rea Consult Reason/Comments: tia/cva Do you want consulting provider notified?: Yes 01/25/24 11:12 Consult Physician Routine Consulting Provider: Consuelo Faulkner Consult Reason/Comments: severe left ICA stenosis with stroke on left Do you want consulting provider notified?: Yes 02/02/24 10:30 Consult Physician Routine Consulting Provider: Manisha Leung Consult Reason/Comments: Hyponatremia Do you want consulting provider notified?: Yes Primary care physician: Tomas Escobar Hospital Course: Final Diagnosis Acute/subacute ischemic stroke on MRI Left ICA stenosis post left carotid endarterectomy Hypertensive urgency, better controlled Sinus tachycardic Acute urinary tract infection Hyponatremia Hyperlipidemia Aortic valve insufficiency Remote tobacco use and dependence Discharge Disposition Stable for discharge home. She will continue on a combination of aspirin Plavix and Lipitor. Patient has been discharged also on metoprolol and Norvasc and continue on losartan for improved blood pressure control. She will follow-up closely with vascular surgery in the office in 2 weeks. Patient to follow-up with nephrology secondary to the low sodium level will continue off of hydrochlorothiazide on discharge. Patient did see her PCP Dr. Tomas Escobar in 1 to 2 days. Repeat basic metabolic panel in 2 to 3 days. Vies for no strenuous activity or heavy lifting greater than 10 pounds patient may shower but no bath tub or soaking. Monitor the incision site for increased redness drainage or temperature greater than 104 please call the vascular office if patient experiences any of the symptoms. Hospital Course This is a 78-year-old white female who had episode of slurred speech last night continuing into the evening when her noticed she denied any weakness to her upper extremities or lower extremities she denies any loss of consciousness or dizziness she denies any headache she was noted to have a left facial droop patient denies any previous history of cerebrovascular accident. She denies any alcohol or drugs. She denies any fever. She was subsequently brought to the [facility] emergency department and found to have acute CVA and was subsequently admitted. brain MRI reported acute/subacute ischemia involving small region within the left frontoparietal region. Progression of nonspecific white matter changes from prior MRI in 2017 likely secondary to small vessel ischemic disease. Carotid Doppler suggested severe proximal left ICA stenosis, unable to visualize right vertebral artery. Vascular surgery consulted. CTA of head and neck no significant abnormality. Echo reported normal LV function, mild concentric LVH, none specific thickening of mitral valve leaflets noted, bubble study somewhat suboptimal, no shunt based on available images. Patient ended up going for left carotid endarterectomy and is today postoperative day #5. She had issues with blood pressure control and was monitored in the intensive care unit for a couple days postprocedure. Patient was transition to the cardiac unit she did have a fall hit her head had some confusion had repeat brain CT and CT angiography completed with no acute findings. Her mentation has significantly improved she is alert and oriented x 3 she does still have slight left facial droop but she has been up ambulating without difficulty and has plans to return home on discharge she denied any need for any home care services and wants to go to outpatient physical and Occupational Therapy. Patient had low sodium felt to be due to SIADH complicated by hydrochlorothiazide use which was stopped. Nephrology started the patient on oral sodium bicarbonate and gave a dose of tolvaptan her sodium level today is 132 and she has been cleared for discharge home. Please see medication reconciliation for a list of current medications. Thank you for allowing us to participate in the care of this patient. The impression and plan of care has been dictated by Ning Frazier, Nurse Practitioner as directed. Dr. Rhonda MD I have performed a history and physical examination and medical decision making of this patient, discussed the same with the dictator, and agree with the dictators assessment and plan as written, documented as a scribe. Based on total visit time, I have performed more than 50% of this visit. Patient Condition at Discharge: Fair Plan - Discharge Summary Discharge Rx Participant: Yes New Discharge Prescriptions: New Aspirin 81 mg PO DAILY #30 tab Clopidogrel [Plavix] 75 mg PO DAILY #30 tab Atorvastatin [Lipitor] 80 mg PO HS #30 tab Metoprolol Tartrate [Lopressor] 25 mg PO BID #60 tab amLODIPine [Norvasc] 5 mg PO DAILY #30 tab Continue Omeprazole [PriLOSEC] 40 mg PO DAILY Escitalopram [Lexapro] 20 mg PO DAILY Linaclotide [Linzess] 145 mcg PO DAILY Losartan [Cozaar] 50 mg PO DAILY Discontinued Rosuvastatin [Crestor] 10 mg PO HS hydroCHLOROthiazide [Hydrodiuril] 12.5 mg PO DAILY Discharge Medication List Omeprazole [PriLOSEC] 40 mg PO DAILY 09/23/17 [History] Escitalopram [Lexapro] 20 mg PO DAILY 01/23/24 [History] Linaclotide [Linzess] 145 mcg PO DAILY 01/23/24 [History] Losartan [Cozaar] 50 mg PO DAILY 01/23/24 [History] Clopidogrel [Plavix] 75 mg PO DAILY #30 tab 02/01/24 [Rx] Aspirin 81 mg PO DAILY #30 tab 02/04/24 [Rx] Atorvastatin [Lipitor] 80 mg PO HS #30 tab 02/04/24 [Rx] Metoprolol Tartrate [Lopressor] 25 mg PO BID #60 tab 02/04/24 [Rx] amLODIPine [Norvasc] 5 mg PO DAILY #30 tab 02/04/24 [Rx] Follow up Appointment(s)/Referral(s): Tomas Escobar DO [Primary Care Provider] - 1-2 days Shawn Liu DO [Doctor of Osteopathic Medicine] - 2 Weeks Manisha Leung MD [STAFF PHYSICIAN] - 1 Week Ambulatory/Diagnostic Orders: Basic Metabolic Panel [LAB.AMB] Time Frame: 3 Days, Location: None Selected Patient Instructions/Handouts: Clopidogrel (By mouth), Carotid Endarterectomy (DC) Activity/Diet/Wound Care/Special Instructions: No strenuous activity or heavy lifting greater than 10 pounds. May shower but no tub bathing or soaking. Watch incision site for infection including redness, drainage, or temperature greater than 100.4. If you notice he symptoms please call office Discharge Disposition: HOME SELF-CARE
[2024-02-04 14:05] VITALS: BP 144/68; PULSE 62
== END 2024-02-04 14:43 | disposition home or self-care (01) | DRG 38 ==
LOC: EC 14:16 → 3SCARD 15:29 → OBSVTOIN 01-26 08:48 → 2SICU 01-30 16:39 → 3SCARD 02-01 19:17
PROVIDERS: ADMIT Family Medicine; ATTEND Family Medicine
PROC: 0JH602Z Insertion of Monitoring Device into Chest Subcutaneous Tissue and Fascia, Open Approach (ICD-10-PCS; 2024-01-27)
PROC: 4A12X4Z Monitoring of Cardiac Electrical Activity, External Approach (ICD-10-PCS; 2024-01-27)
PROC: 03UJ0JZ Supplement Left Common Carotid Artery with Synthetic Substitute, Open Approach (ICD-10-PCS; 2024-01-30)
PROC: 4A133B1 Monitoring of Arterial Pressure, Peripheral, Percutaneous Approach (ICD-10-PCS; 2024-01-30)
PROC: 4A133J1 Monitoring of Arterial Pulse, Peripheral, Percutaneous Approach (ICD-10-PCS; 2024-01-30)
PROC: 03HY32Z Insertion of Monitoring Device into Upper Artery, Percutaneous Approach (ICD-10-PCS; 2024-01-30)
PROC: 03CJ0ZZ Extirpation of Matter from Left Common Carotid Artery, Open Approach (ICD-10-PCS; principal; 2024-01-30 07:30)
DX: I63.40 Cerebral infarction due to embolism of unspecified cerebral artery (principal); E22.2 Syndrome of inappropriate secretion of antidiuretic hormone; N39.0 Urinary tract infection, site not specified; L76.32 Postprocedural hematoma of skin and subcutaneous tissue following other procedure; I16.0 Hypertensive urgency; I65.22 Occlusion and stenosis of left carotid artery; K76.0 Fatty (change of) liver, not elsewhere classified; M79.7 Fibromyalgia; R29.810 Facial weakness; E86.1 Hypovolemia; B96.20 Unspecified Escherichia coli [E. coli] as the cause of diseases classified elsewhere; I12.9 Hypertensive chronic kidney disease with stage 1 through stage 4 chronic kidney disease, or unspecified chronic kidney disease; N18.9 Chronic kidney disease, unspecified; R47.01 Aphasia; W19.XXXA Unspecified fall, initial encounter; E78.5 Hyperlipidemia, unspecified; F32.A Depression, unspecified; G89.29 Other chronic pain; J45.909 Unspecified asthma, uncomplicated; R29.700 NIHSS score 0; R29.701 NIHSS score 1; R00.0 Tachycardia, unspecified; R47.1 Dysarthria and anarthria; Z85.528 Personal history of other malignant neoplasm of kidney; Z85.828 Personal history of other malignant neoplasm of skin; M19.90 Unspecified osteoarthritis, unspecified site; Z86.73 Personal history of transient ischemic attack (TIA), and cerebral infarction without residual deficits; Z87.891 Personal history of nicotine dependence; Z90.710 Acquired absence of both cervix and uterus; Z79.899 Other long term (current) drug therapy; Z79.02 Long term (current) use of antithrombotics/antiplatelets; Z91.041 Radiographic dye allergy status; Z91.013 Allergy to seafood; Z88.5 Allergy status to narcotic agent; Z95.818 Presence of other cardiac implants and grafts; Y84.8 Other medical procedures as the cause of abnormal reaction of the patient, or of later complication, without mention of misadventure at the time of the procedure; Z90.49 Acquired absence of other specified parts of digestive tract
CPT/HCPCS: 33285; 36415; 70450; 70496; 70498; 70551; 80048; 80061; 81001; 83036; 83735; 83935; 84145; 84295; 84300; 84443; 85025; 85027; 85610; 85730; 86850; 86900; 86901; 87077; 87086; 87186; 88304; 93005; 93306; 93880; 96360; 99285

== ENCOUNTER → 2024-02-25 | Outpatient (CLI) | payer MEDICARE, BC ==
[2024-02-25 23:19] LABS: ALT 41 U/L (8-44); AST 33 U/L (13-35); Albumin 4.6 g/dL (3.8-4.9); Alkaline Phosphatase 63 U/L (41-126); BUN/Creat Ratio 14.29 Ratio (12.00-20.00); Calcium 9.8 mg/dL (8.7-10.3); Carbon Dioxide 26.8 mmol/L (21.6-31.8); Chloride 103 mmol/L (96-109); Chol/HDL Ratio 2.92 Ratio; Glucose 96 mg/dL (70-110); LDL Cholesterol,Calculated 60.8 mg/dL (0.0-131.0); Potassium 4.5 mmol/L (3.5-5.5); Sodium 142 mmol/L (135-145); Total Bilirubin 0.5 mg/dL (0.3-1.2); Total Protein 6.6 g/dL (6.2-8.2)
== END | disposition home or self-care (01) ==
LOC: LABWHC1 10:06
PROVIDERS: ATTEND Internal Medicine Interventional Cardiology
DX: E78.2 Mixed hyperlipidemia (principal)
CPT/HCPCS: 36415; 80053; 80061

== ENCOUNTER → 2024-08-22 | Outpatient (CLI) | payer MEDICARE, BC ==
[2024-08-22 15:57] LABS: ALT 29 U/L (8-44); AST 29 U/L (13-35); Albumin 4.6 g/dL (3.8-4.9); Albumin/Globulin Ratio 2.56 Ratio (1.60-3.17); Alkaline Phosphatase 54 U/L (41-126); BUN/Creat Ratio 14.38 Ratio (12.00-20.00); Blood Urea Nitrogen 11.5 mg/dL (9.0-27.0); Calcium 9.8 mg/dL (8.7-10.3); Carbon Dioxide 27.4 mmol/L (21.6-31.8); Chloride 95 mmol/L (96-109); Chol/HDL Ratio 2.59 Ratio; Globulin 1.8 g/dL (1.6-3.3); Glucose 92 mg/dL (70-110); LDL Cholesterol,Calculated 71.7 mg/dL (0.0-131.0); Potassium 4.3 mmol/L (3.5-5.5); Sodium 135 mmol/L (135-145); Total Bilirubin 0.6 mg/dL (0.3-1.2); Total Protein 6.4 g/dL (6.2-8.2)
== END | disposition home or self-care (01) ==
LOC: LABWHC1 11:42
PROVIDERS: ATTEND Internal Medicine Interventional Cardiology
DX: I10 Essential (primary) hypertension (principal); E78.2 Mixed hyperlipidemia
CPT/HCPCS: 36415; 80053; 80061